=== PATIENT | female | born 1975 | race Caucasian/White ===

== ENCOUNTER 2021-10-02 21:14 | Emergency (ER) | payer MEDICAID, SELFPAY ==
[2021-10-02 21:28] VITALS: BP 121/81; PULSE 95; RESP 26; TEMP 37.2; O2SAT 95; BMI 23.7
--- NOTE | 2021-10-02 22:28 | W.ED.SOB ---
HPI - SOB/Dyspnea General: Chief Complaint: Shortness of Breath/Dyspnea Stated Complaint: sob Time Seen by Provider: 10/02/21 22:27 History of Present Illness: HPI Narrative: Ms. Garaz is a 46-year-old lady with significant past medical history of COPD and continued tobacco use presenting to the emergency department due to shortness of breath. She endorses history of frequent exacerbations and recent course of Levaquin. She is waiting for home oxygen to be delivered however was around smoke earlier today and since that time has had increased shortness of breath. Symptoms are worse with exertion. Associated cough is minimally productive. Course has worsened. Intensity moderate to severe. She has similar episodes in the past. No other specific changes in health, exacerbating, or alleviating factors identified. Onset (ago): hour(s) Context: allergen exposure Severity: moderate Exacerbating factors: exertion Known history of: COPD Review of Systems General: Reports: 10 or more systems reviewed and unremarkable except in HPI and below PFSH ED PFSH: Medical History (Updated 10/09/21 @ 02:32 by Israel Kerr MD) COPD (chronic obstructive pulmonary disease) Social History (Updated 10/09/21 @ 02:32 by Israel Kerr MD) Smoking and tobacco status: current every day smoker Physical Exam Const: COMMON NORMALS: alert GENERAL APPEARANCE: cooperative, well developed and ill appearing (Increased work of breathing) HENMT: COMMON NORMALS: normocephalic and atraumatic HEAD & SCALP: normocephalic and atraumatic THROAT: posterior oropharynx normal Eye: COMMON NORMALS: conjunctivae normal CONJUNCTIVA: Yes conjunctivae normal SCLERA: sclerae normal Neck/C-Spine: COMMON NORMALS: supple GENERAL: Yes trachea midline Resp: EFFORT & INSPECTION: Yes tachypneic AUSCULTATION: rhonchi, wheezes and diminished lung sounds Cardio: COMMON NORMALS: regular rate and regular rhythm RATE: regular rate RHYTHM: regular rhythm GI: COMMON NORMALS: Soft to palpation PALPATION: Yes Soft to palpation and No Tenderness to palpation present (GI) PERCUSSION: normal to percussion Extremity: GENERAL: Yes normal exam except as noted and No edema Neuro: COMMON NORMALS: moves all extremities SENSORIUM/ORIENTATION: Yes alert and No Orientation impaired Psych: COMMON NORMALS: mental status grossly normal and Normal thought process present THOUGHT PROCESS: Normal thought process present Course ED course: - Patient was seen and evaluated by me at bedside - Patient placed on cardiac monitors, IV access obtained - Initial evaluation notable for exam as above - Labs personally interpreted by me -RT treatment ordered. - Labs notable for minimal leukocytosis. Electrolyte panel without acute abnormality. - Upon serial reexamination after treatment the patient was mildly improved, repeat RT treatments ordered. COPD exacerbation treatment ordered. Upon reassessment subsequently patient markedly improved and not requiring supplemental oxygen. - Based on patient history, evaluation, and testing as interpreted the most likely cause of the patient's condition is COPD exacerbation. - The results of ED evaluation were discussed with the patient including prescriptions and/or symptomatic cares (if applicable) including appropriate and responsible use, followup plan, and return precautions. The patient verbalized understanding and felt safe for discharge. - Patient discharged in satisfactory condition. Note: Click bubbles or prepopulated walker in note writing are used for assistance with data collection and billing and are inherently more limited than narrative and other text portions of this note. Please use narrative for additional clinical history and defer to narrative/free test for any case of contradictory information. If information appears in only free text or click bubble it should be considered present or absent as reported. Please contact note global technical writer for clarifications of clinical information or contradictory information. MDM is a brief summary, contradictory or erroneous seeming information should be clarified and full note should be reviewed. Vital Signs: Vital signs: Vital Signs Temperature 98.9 F 10/02/21 21:28 Pulse Rate 90 10/03/21 00:29 Respiratory Rate 24 H 10/03/21 00:29 Blood Pressure 121/81 10/02/21 21:28 Pulse Oximetry 94 10/03/21 00:29 MDM - SOB/Dyspnea Medical Decision Making 46-year-old lady presenting with shortness of breath with known history of COPD. Patient had significant improvement in respiratory distress after ED treatment. Patient comfortable with outpatient management and strict return precautions. Medical Records I reviewed the patient's medical records. Lab Data I reviewed the patient's lab results. Discharge Plan Discharge Patient Disposition: Home Clinical Impression: Acute exacerbation of chronic obstructive airways disease Condition: Stable Prescriptions: New doxycycline hyclate 100 mg tablet 100 mg PO BID 10 Days Qty: 20 0RF albuterol sulfate 90 mcg/actuation HFA aerosol inhaler 2 inh inhalation Q4H PRN (Reason: shortness of breath or wheezing) Qty: 8.5 0RF Discharge Orders: Discharge ED (Routine); Ordered 10/03/21 Ordered By: Israel Kerr Discharge Diet: Usual diet Discharge Activity: Increase activity as tolerated Activity Restrictions/Additional Instructions: Thank you for visiting the emergency department. You were seen and evaluated for shortness of breath. This is likely related to exacerbation of underlying lung disease. Please follow-up with your primary care provider. You will be given prescriptions for COPD exacerbation. Return to the emergency department for worsening symptoms or anything else that you are concerned about and feel needs emergency department evaluation. Coding Level of Care Code ED Pipe Jeeper for Juan M Fwd Exam Comprehensive
[2021-10-02] MEDS: predniSONE 20 mg Tablet 40 MG PO (22:42)
[2021-10-02] MEDS: ipratropium-albuterol 3 mL Neb INHALATION (23:00)
[2021-10-02 23:02] VITALS: PULSE 89; RESP 18; O2SAT 100
[2021-10-03 00:09] VITALS: PULSE 97; RESP 18; O2SAT 99
[2021-10-03 00:19] VITALS: PULSE 88
[2021-10-03 00:29] VITALS: PULSE 90; RESP 24; O2SAT 94
== END 2021-10-03 00:30 | disposition home or self-care (01) ==
PROVIDERS: Emergency Provider Emergency Medicine; PCP Family Medicine
DX: J44.1 Chronic obstructive pulmonary disease with (acute) exacerbation (principal); F17.200 Nicotine dependence, unspecified, uncomplicated
CPT/HCPCS: 94640; 99283; J7512; J7611

== ENCOUNTER 2022-09-26 09:26 | Inpatient (IN) | payer MEDICAID, SELFPAY ==
[2022-09-26] VITALS (86 sets, daily range): BP systolic 102–153; BP diastolic 73–115; PULSE 81–116; RESP 8–35; TEMP 36.7; O2SAT 86–100; BMI 23.0
--- NOTE | 2022-09-26 10:07 | ECG_ITS ---
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 Measurements Intervals [place] Rate: 81 P: 85 [place]: 133 QRS: 87 QRSD: 82 T: 71 QT: 389 QTc: 454 Interpretive Statements SINUS RHYTHM Incomplete right bundle branch block POSSIBLE LEFT ATRIAL ENLARGEMENT [-0.1mV P-WAVE IN V1/V2] Compared to ECG 11/06/2018 09:52:29 No significant changes Electronically Signed On 09-26-2022 14:02:42 CDT by Shakeel Jean M.D. [email or web address] hospitalTRACON Pharmaceutical[facility] hospital.[employer]/store/[id number]
--- NOTE | 2022-09-26 10:08 | W.ED.SOB ---
HPI - SOB/Dyspnea General: Chief Complaint: Shortness of Breath/Dyspnea Stated Complaint: DIFFICULTY BREATHING Time Seen by Provider: 09/26/22 09:39 Source: patient Mode of arrival: ambulatory History of Present Illness: HPI Narrative: 47-year-old female presents emergency room complaining of shortness of breath difficulty breathing feeling lethargic and tired. She has had severe COPD for some time she is oxygen dependent states she feels like her carbon dioxide is building up again she is experience this previously. She does have a BiPAP at home but has not been seeming to be very helpful anymore she is also noticed that albuterol treatments not improving things. MD elicited complaint: shortness of breath and cough Pertinent past history: COPD Onset (ago): day(s) Timing: constant Severity: severe Relieving factors: rest and bronchodilators Known history of: COPD Associated symptoms: Reports cough; Deny abdominal pain, chest congestion, chest pain, diaphoresis, dizziness, extremity pain, fever(s), hemoptysis, lightheadedness, myalgias, nausea, orthopnea, palpitations, paresthesias, polydipsia, polyuria, rash, sense of impending doom, syncope or vomiting Treatment prior to arrival: oxygen and bronchodilator Review of Systems Const: Denies: fever(s), chills, fatigue, malaise or diaphoresis ENMT: Denies: throat pain, ear or mastoid pain, nasal discharge or nasal congestion Card: Denies: chest pain, palpitations, lightheadedness, syncope or orthopnea Resp: Reports: dyspnea, non-productive cough and wheezing; Denies: productive cough, hemoptysis or chest congestion GI: Denies: abdominal pain, nausea or vomiting : Denies: flank pain, difficulty voiding, dysuria, urinary frequency or urinary urgency Musc: Denies: neck pain, back pain or extremity pain Skin/Breast: Denies: rash or pruritus Neuro: Denies: dizziness Endo: Denies: polyuria or polydipsia PFSH ED PFSH: Medical History COPD (chronic obstructive pulmonary disease) Social History Smoking and tobacco status: current every day smoker Physical Exam Const: GENERAL APPEARANCE: cooperative and comfortable ORIENTATION/CONSCIOUSNESS: Yes awake, Yes oriented to person, Yes oriented to place and Yes oriented to time HENMT: COMMON NORMALS: normocephalic, atraumatic and hearing grossly normal bilaterally HEAD & SCALP: normocephalic and atraumatic Resp: EFFORT & INSPECTION: Yes tachypneic, Yes pursed lip breathing, Yes labored, Yes audible wheezes and Yes prolonged expiratory phase AUSCULTATION: wheezes and diminished lung sounds Cardio: COMMON NORMALS: regular rate, regular rhythm and No murmurs present (Cardio) RATE: regular rate RHYTHM: regular rhythm GI: COMMON NORMALS: Soft to palpation and No hepatosplenomegaly present AUSCULTATION: Yes normoactive bowel sounds PALPATION: Yes Soft to palpation, No Tenderness to palpation present (GI), No Guarding due to palpation present (GI) and Yes No hepatosplenomegaly present Extremity: COMMON NORMALS: normal to inspection, capillary refill normal, no clubbing, cyanosis or edema, no calf tenderness and no pedal edema Neuro: SENSORIUM/ORIENTATION: Yes oriented to person, Yes oriented to place and Yes oriented to time Skin: COMMON NORMALS: no rashes or lesions noted GENERAL SKIN EXAM: no rashes or lesions noted Course Vital Signs: Vital signs: Vital Signs Temperature 98.0 F 09/26/22 09:35 Pulse Rate 88 09/26/22 13:01 Respiratory Rate 16 09/26/22 10:35 Blood Pressure 102/73 09/26/22 10:54 Pulse Oximetry 93 09/26/22 13:01 Oxygen Delivery Me thod Room Air 09/26/22 10:54 Fraction of Inspir ed Oxygen 28 09/26/22 13:01 MDM - SOB/Dyspnea Medical Decision Making Hypercapnic respiratory failure no signs of acute pneumonia. Will admit the patient to the hospital [facility] was struggling with the Bi[facility] and extremely anxious we gave her 2 mg Ativan which she became very lethargic with. Repeat blood gases showed she was maintaining on her BiPAP but her CO2 was still persistently high. She is also now very lethargic. Ultimately after monitoring for extended period of time we decided to change her to the ICU. Both the patient and the family had expressed they do not want her intubated. Discussed with hospitalist orders written. Medical Records I reviewed the patient's medical records. Lab Data I reviewed the patient's lab results. 09/26/22 10:20 09/26/22 10:20 Labs/Radiology: Radiology Impressions Chest X-Ray 09/26/22 10:27 Impression: Atherosclerosis and hyperinflation. Laboratory Results WBC 15.9 10^3/uL (4.0-10.0) H 09/26/22 10:20 RBC 4.82 10^6/uL (4.1-5.3) 09/26/22 10:20 Hgb 14.1 g/dL (11.5-15.3) 09/26/22 10:20 Hct 47.1 % (37.0-47.0) H 09/26/22 10:20 MCV 97.7 fl (81-99) 09/26/22 10:20 MCH 29.3 pg (28.0-34.0) 09/26/22 10:20 MCHC 29.9 g/dL (30.0-36.0) L 09/26/22 10:20 RDW 13.2 % (12.1-15.1) 09/26/22 10:20 Plt Count 240 10^3/cmm (130-400) 09/26/22 10:20 MPV 10.3 fL (7.4-10.4) 09/26/22 10:20 Neut % (Auto) 79.9 % 09/26/22 10:20 Lymph % (Auto) 11.7 % 09/26/22 10:20 [place] % (Auto) 6.1 % 09/26/22 10:20 Eos % (Auto) 1.3 % 09/26/22 10:20 Baso % (Auto) 0.7 % 09/26/22 10:20 Neut # (Auto) 12.69 10^3/uL (1.8-7.7) H 09/26/22 10:20 Lymph # (Auto) 1.9 10^3/uL (0.8-4.8) 09/26/22 10:20 [place] # (Auto) 1.0 10^3/uL (0.2-0.9) H 09/26/22 10:20 Eos # (Auto) 0.2 10^3/uL (0.0-0.8) 09/26/22 10:20 Baso # (Auto) 0.1 10^3/uL (0.0-0.1) 09/26/22 10:20 Nucleated RBC % (auto) 0 % 09/26/22 10:20 Nucleated RBCs # 0.0 /100WBC 09/26/22 10:20 Specimen Type Arterial 09/26/22 11:43 Sample Site Radial, right 09/26/22 11:43 ABG pH 7.37 (7.35-7.45) 09/26/22 11:43 ABG pCO2 72.3 mmHg (35-45) H* 09/26/22 11:43 ABG pO2 91.8 mmHg (80.0-100.0) 09/26/22 11:43 ABG HCO3 41.9 mmol/L (22-26) H 09/26/22 11:43 ABG O2 Saturation 98.7 09/26/22 11:43 ABG Base Excess 13.0 mmol/L (-2.0-2.0) H 09/26/22 11:43 Jason Test Pos 09/26/22 11:43 A-a O2 Gradient 2.6 mmHg (5-10) L 09/26/22 11:43 Hematocrit 45.1 % (37-47) 09/26/22 11:43 Hgb O2 Saturation 93.1 % (95-100) L 09/26/22 11:43 Carboxyhemoglobin 4.9 %THgb (0.4-20.1) 09/26/22 11:43 Methemoglobin 0.7 % (0.4-1.5) 09/26/22 11:43 Total Hemoglobin 14.7 g/dL (12-16) 09/26/22 11:43 Sodium 142.0 mmol/L (131-143) 09/26/22 11:43 Potassium 5.0 mmol/L (3.5-5.0) 09/26/22 11:43 Glucose 119.0 mg/dL (70-115) H 09/26/22 11:43 Ionized Calcium 1.2 mmol/L (1.1-1.4) 09/26/22 11:43 O2 Delivery Device Bipap 09/26/22 11:43 O2 Liters/Min 2.0 % 09/26/22 10:05 FiO2 28.0 % 09/26/22 11:43 Weed Science Research Technician ID Jamie 09/26/22 11:43 Sodium 141 mmol/L (136-145) 09/26/22 10:20 Potassium 4.5 mmol/L (3.5-5.1) 09/26/22 10:20 Chloride 96 mmol/L (98-107) L 09/26/22 10:20 Carbon Dioxide 37 mmol/L (22-29) H 09/26/22 10:20 Anion Gap 12.5 (5-19) 09/26/22 10:20 BUN 11 mg/dL (6-20) 09/26/22 10:20 Creatinine 0.4 mg/dL (0.5-0.9) L 09/26/22 10:20 GFR Calculation 171.1 mL/min (90-130) H 09/26/22 10:20 Glucose 105 mg/dL (65-115) 09/26/22 10:20 Calculated Osmolality 292 mOsm/kg (285-295) 09/26/22 10:20 Calcium 8.9 mg/dL (8.5-10.5) 09/26/22 10:20 Total Bilirubin 0.2 mg/dL (0.15-1.2) 09/26/22 10:20 AST 16 U/L (0-32) 09/26/22 10:20 ALT 28 U/L (0-33) 09/26/22 10:20 Alkaline Phosphatase 76 U/L (35-105) 09/26/22 10:20 Troponin T Baseline 9 ng/L (0-10) 09/26/22 10:20 Troponin T 120 Minute 8.04 ng/L (0-10) 09/26/22 12:49 Delta Troponin T -0.96 ABS# (0-10) L 09/26/22 12:49 Total Protein 6.1 g/dL (6.6-8.7) L 09/26/22 10:20 Albumin 3.9 g/dL (3.5-5.2) 09/26/22 10:20 Globulin 2.2 g/dL (1.3-4.6) 09/26/22 10:20 Discharge Plan Discharge Patient Disposition: Admitted As Inpatient Admit Provider: Damon Malone Clinical Impression: Acute exacerbation of chronic obstructive airways disease, Respiratory failure with hypoxia and hypercapnia Condition: Stable Coding Level of Care Code ED Gift Officer for Juan M Vegas
[2022-09-26 10:23] LABS: ABG PH Result 7.33 (7.35-7.45); Alveolar-Arterial Oxygen Gradi 3.6 mmHg (5-10); Arterial Blood Gas Hematocrit 44.8 % (37-47); Base Excess ABG 13.1 mmol/L (-2.0-2.0); Blood Gas Operator Identificat GD; Blood Gas Sample Site Brachial, right; Blood Gas Sample Type Arterial; Carboxyhemoglobin 6.1 %THgb (0.4-20.1); HCO3 ABG 43.4 mmol/L (22-26); HGB O2 Sat 89.7 % (95-100); Ionized Calcium Level - ABG 1.3 mmol/L (1.1-1.4); Methemoglobin 0.6 % (0.4-1.5); Oxygen Device NC; Oxygen Saturation ABG 96.1; PO2 ABG 71.9 mmHg (80.0-100.0); Potassium Level - ABG 4.1 mmol/L (3.5-5.0); Total Hemoglobin 14.6 g/dL (12-16)
[2022-09-26] MEDS: dexamethasone 10 mg/mL INJ IVP (10:26)
--- NOTE | 2022-09-26 10:27 | XR_ITS ---
WS: [id number] Portable AP upright chest, 09/26/2022 Clinical Data: dyspnea/cough Comparison: Portable chest, 11/06/2018 Findings: No nodules, masses or effusions are seen. The heart is normal. There is an unchanged calcif ied granuloma in the right midlung. The pulmonary vascularity is not increased. No pneumonia or pneum othorax is seen. The aortic arch and descending thoracic aorta show minimal tortuosity. The diaphragm s are flattened. There are healed left sixth, seventh and eighth rib fractures. XR/XR chest 1V portable [id number] Impression: Atherosclerosis and hyperinflation.
[2022-09-26] MEDS: ipratropium-albuterol 3 mL Neb INHALATION ×2 (10:36→19:35)
[2022-09-26 11:12] LABS: Troponin(5th) Baseline 9 ng/L (0-10)
[2022-09-26 11:54] LABS: Alanine Aminotransferase 28 U/L (0-33); Albumin Level 3.9 g/dL (3.5-5.2); Alkaline Phosphatase 76 U/L (35-105); Blood Urea Nitrogen 11 mg/dL (6-20); Calcium 8.9 mg/dL (8.5-10.5); Carbon Dioxide 37 mmol/L (22-29); Chloride 96 mmol/L (98-107); Creatinine Clr Calc Pharmacy 151.0371; Globulin 2.2 g/dL (1.3-4.6); Glomerular Filtration Rate 171.1 mL/min (90-130); Glucose 105 mg/dL (65-115); Osmolality Calculated 292 mOsm/kg (285-295); Sodium 141 mmol/L (136-145); Total Bilirubin 0.2 mg/dL (0.15-1.2); Total Protein 6.1 g/dL (6.6-8.7)
[2022-09-26 11:55] LABS: ABG PH Result 7.37 (7.35-7.45); Alveolar-Arterial Oxygen Gradi 2.6 mmHg (5-10); Arterial Blood Gas Hematocrit 45.1 % (37-47); Blood Gas Allen Test Pos; Blood Gas Sample Site Radial, right; Blood Gas Sample Type Arterial; Carboxyhemoglobin 4.9 %THgb (0.4-20.1); HCO3 ABG 41.9 mmol/L (22-26); HGB O2 Sat 93.1 % (95-100); Ionized Calcium Level - ABG 1.2 mmol/L (1.1-1.4); Methemoglobin 0.7 % (0.4-1.5); Oxygen Device BIPAP; Oxygen Saturation ABG 98.7; PO2 ABG 91.8 mmHg (80.0-100.0); Total Hemoglobin 14.7 g/dL (12-16)
[2022-09-26 11:57] LABS: Basophils # 0.1 10^3/uL (0.0-0.1); Basophils % 0.7 %; Eosinophils # 0.2 10^3/uL (0.0-0.8); Eosinophils % 1.3 %; Hematocrit 47.1 % (37.0-47.0); Hemoglobin 14.1 g/dL (11.5-15.3); Lymphocytes # 1.9 10^3/uL (0.8-4.8); Lymphocytes % 11.7 %; Mean Corpuscular HGB Conc 29.9 g/dL (30.0-36.0); Mean Corpuscular Hemoglobin 29.3 pg (28.0-34.0); Mean Corpuscular Volume 97.7 fl (81-99); Mean Platelet Volume 10.3 fL (7.4-10.4); Monocytes % 6.1 %; Neutrophils # 12.69 10^3/uL (1.8-7.7); Neutrophils % 79.9 %; Nucleated Red Blood Cells % 0 %; Platelet Count 240 10^3/cmm (130-400); Red Blood Count 4.82 10^6/uL (4.1-5.3); Red Cell Distribution Width 13.2 % (12.1-15.1); White Blood Count 15.9 10^3/uL (4.0-10.0)
[2022-09-26 11:59] LABS: Anion Gap 12.5 (5-19); Aspartate Amino Transferase 16 U/L (0-32); Potassium 4.5 mmol/L (3.5-5.1)
--- NOTE | 2022-09-26 12:07 | ECG_ITS ---
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 Measurements Intervals [place] Rate: 82 P: 86 SC: 122 QRS: 95 QRSD: 80 T: 93 QT: 387 QTc: 452 Interpretive Statements SINUS RHYTHM POSSIBLE LEFT ATRIAL ENLARGEMENT [-0.1mV P-WAVE IN V1/V2] INDETERMINATE AXIS POSSIBLE RIGHT VENTRICULAR CONDUCTION DELAY [RSR (QR) IN V1/V2] Compared to ECG 09/26/2022 10:26:56 Indeterminate axis now present Electronically Signed On 09-26-2022 14:14:20 CDT by Shakeel Jean M.D. [email or web address].[employer]/store/[id number]
[2022-09-26] MEDS: LORazepam 2 mg/mL INJ 1 mL IVP (12:32)
--- NOTE | 2022-09-26 12:33 | PC.PHAR ---
PT BROUGHT IN MED BOTTLES-PT STATES SHE KNOWS MOST OF HER MEDS AND THAT HER BOYFRIEND OSEAS HELPS HER WITH HER MEDS-CALLED OSEAS HIS PHONE NUMBER IS NOT IN SERVICE-MEDICATIONS ENTERED ARE FROM WHAT THE PT STATES SHE TAKES,EXT MED HISTORY AND MED BOTTLES BROUGHT IN.
[2022-09-26 13:38] LABS: Troponin 5 2HR 8.04 ng/L (0-10)
[2022-09-26 13:50] LABS: Troponin 5 2HR Delta -0.96 ABS# (0-10)
[2022-09-26 14:31] LABS: ABG PH Result 7.38 (7.35-7.45); Alveolar-Arterial Oxygen Gradi 6.4 mmHg (5-10); Arterial Blood Gas Hematocrit 46.8 % (37-47); Base Excess ABG 13.3 mmol/L (-2.0-2.0); Blood Gas Operator Identificat GD; Blood Gas Sample Site Brachial, right; Blood Gas Sample Type Arterial; Carboxyhemoglobin 4.4 %THgb (0.4-20.1); HCO3 ABG 42.4 mmol/L (22-26); HGB O2 Sat 89.8 % (95-100); Ionized Calcium Level - ABG 1.3 mmol/L (1.1-1.4); Methemoglobin 0.5 % (0.4-1.5); Oxygen Device BIPAP; Oxygen Saturation ABG 94.5; Total Hemoglobin 15.3 g/dL (12-16)
[2022-09-26 14:33] LABS: ABG PCO2 72.3 mmHg (35-45)
[2022-09-26 14:33] LABS: ABG PCO2 83.3 mmHg (35-45)
[2022-09-26 14:33] LABS: ABG PCO2 71.9 mmHg (35-45)
--- NOTE | 2022-09-26 14:53 | P.HP_ITS ---
Providers/Chief Complaint Admitting Physician: Damon Malone MD Primary Care Provider: Nurys Brooks DO Chief Complaint: DIFFICULTY BREATHING History of Present Illness Rebekah Gabriel is a 47 year old female with past medical history of gold class D COPD , on home oxygen, came in today with chief complaint of worsening shortness of breath, she has shortness of breath at baseline due to her underlying end- stage COPD, but lately in the last 1 week she has been more short of breath, history taking was not possible from the patient as the patient was extremely sleepy because she had just called Ativan in the ER, history was provided by the friend. She denied any pain cough, headache nausea vomiting abdominal pain. X-ray chest showed: Hyperinflated lung. Pertinent labs: ABG: pH: 7.33, PCO2:83 , PO2:71 , FiO2 28%. Patient was placed on AVAPS in the ER: (Tidal volume 420, rate of 18, P minimum 28 P maximum 40, EPAP of 10, FiO2 28%. Interval serial ABG was monitored. Review of Systems General: Reports: ROS unobtainable due to mental status Medications/Allergies Home Medications Medication Instructions Recorded Confirmed Last Taken Type albuterol sulfate 90 mcg/actuation 2 inh inhalation Q4H PRN shortness 10/03/21 09/26/22 Unknown Rx aerosol inhaler of breath or wheezing #8.5 grams dpicpve-rrzgxjpyrthfy-rtydinoe 250 1 tab PO Q6H PRN Migraine Headache 09/26/22 09/26/22 Unknown History mg-250 mg-65 mg tablet (Migraine Relief) azithromycin 250 mg tablet 250 mg PO DAILY 09/26/22 09/26/22 09/26/22 History FINISHED TODAY guaifenesin 600 mg tablet, 600 mg PO DAILY PRN Congestion 09/26/22 09/26/22 Unknown History extended release 12 hr (Mucinex) hydrocodone 5 mg-acetaminophen 325 1 tab PO Q6H PRN Pain 09/26/22 09/26/22 Unknown History mg tablet ipratropium 0.5 mg-albuterol 3 mg 3 ml inhalation Q4H PRN Shortness 09/26/22 09/26/22 Unknown History (2.5 mg base)/3 mL nebulization Of Breath soln levocetirizine 5 mg tablet (Xyzal) 5 mg PO QPM 09/26/22 09/26/22 Unknown History loratadine 10 mg tablet (Claritin) 10 mg PO DAILY PRN Allergy Symptoms 09/26/22 09/26/22 Unknown History phenylephrine HCl 5 mg tablet 5 mg PO BID PRN Allergy Symptoms 09/26/22 09/26/22 Unknown History phenylephrine-guaifenesin 10 1 tab PO DAILY PRN Sinus Symptoms 09/26/22 09/26/22 Unknown History mg-400 mg tablet prednisone 20 mg tablet 40 mg PO QAM 09/26/22 09/26/22 09/26/22 History propranolol 10 mg tablet 10 mg PO DAILY 09/26/22 09/26/22 Unknown History sodium chloride 0.65 % nasal spray 1 spray intranasal BID PRN UNKNOWN 09/26/22 09/26/22 Unknown History aerosol (Saline Nasal) tramadol 50 mg tablet 25 mg PO QAM PRN Pain 09/26/22 09/26/22 Unknown History umeclidinium 62.5 mcg/actuation 1 inh inhalation DAILY 09/26/22 09/26/22 Unknown History blister powder for inhalation (Incruse Ellipta) Allergies Allergy/AdvReac Type Severity Reaction Status Date / Time levofloxacin [From Levaquin] Allergy Unknown Verified 09/26/22 09:46 Penicillins Allergy Unknown Verified 09/26/22 09:46 Sulfa (Sulfonamide Allergy Unknown Verified 09/26/22 09:46 Antibiotics) PFSH Acute PFSH: Medical History COPD (chronic obstructive pulmonary disease) Social History Smoking and tobacco status: current every day smoker Vitals/I&O/Wt Last Vital Signs Temp 98.0 F 09/26/22 09:35 Pulse 88 09/26/22 13:01 Resp 16 09/26/22 10:35 BP 102/73 09/26/22 10:54 Pulse Ox 93 09/26/22 13:01 O2 Del Method Room Air 09/26/22 10:54 FiO2 28 09/26/22 13:01 Weight last 48 hrs Weight 58.967 kg Physical Exam 2 Const: COMMON NORMALS: patient oriented x3 HENMT: COMMON NORMALS: normocephalic and atraumatic Resp: EFFORT & INSPECTION: Yes symmetric chest movement OTHER: Diminished air entry B/L Cardio: COMMON NORMALS: regular rate, regular rhythm, S1 normal heart sound present, S2 normal heart sound present, No gallops present (Cardio), No murmurs present (Cardio), No rub (Cardio) and Peripheral pulses 2+ throughout RATE: regular rate RHYTHM: regular rhythm HEART SOUNDS: S1 normal heart sound present and S2 normal heart sound present PERIPHERAL PULSES: Peripheral pulses 2+ throughout GI: COMMON NORMALS: Normal to inspection, nondistended, normoactive bowel sounds present, Soft to palpation, non-tender, No hepatosplenomegaly present and no masses AUSCULTATION: Yes normoactive bowel sounds PALPATION: Yes Soft to palpation and Yes No hepatosplenomegaly present RECTAL EXAM: deferred Extremity: COMMON NORMALS: no clubbing, cyanosis or edema and no pedal edema Neuro: COMMON NORMALS: patient oriented x3 Data 09/26/22 10:20 09/26/22 10:20 A&P Assessment and plan (1) Respiratory failure with hypoxia and hypercapnia: (2) COPD exacerbation: Plan 47 year old female with past medical history of gold class D COPD , on home oxygen, came in today with chief complaint of worsening shortness of breath, she has shortness of breath at baseline due to her underlying end-stage COPD, but lately in the last 1 week she has been more short of breath. Assessment: Respiratory failure with hypoxia and hypercapnia secondary to COPD exacerbation: Continue BiPAP currently on AVAPS Monitor ABG Continue dexamethasone DuoNebs Supplemental oxygen as needed. COPD exacerbation: Plan as above Attestations Medical Necessity Statement*: Patient needs to be in hospital for management of respiratory failure.Ant icipated length of stay greater than 2 midnights. Coding Level of Care Code Acute Code for [facility] Fwd Diagnoses Respiratory failure with hypoxia and hypercapnia J96.91; J96.92 COPD exacerbation J44.1
[2022-09-26] MEDS: dexamethasone 4 mg/mL INJ IVP (16:14)
[2022-09-26] MEDS: enoxaparin 40 mg/0.4 mL Syringe SUBCUT (16:15)
--- NOTE | 2022-09-26 16:32 | ECG_ITS ---
[facility] Test Date: 2022-09-26 Pat Name: Rebekah Gabriel Department: Room: ICU10 Gender: Female Crisis Manager: : 1975 Requested By: Juan Jay Order Number: [id number] Chandana MD: Jeffery Nguyen M.D. Measurements Intervals [place] Rate: 94 P: 86 NM: 123 QRS: 76 QRSD: 77 T: 78 QT: 363 QTc: 456 Interpretive Statements SINUS RHYTHM POSSIBLE RIGHT ATRIAL ENLARGEMENT [0.25mV P-WAVE] LEFT ATRIAL ENLARGEMENT [-0.15mV P-WAVE IN V1/V2] INDETERMINATE AXIS POSSIBLE ANTERIOR MYOCARDIAL INFARCTION , OF INDETERMINATE AGE [30 ms Q WAVE IN V3/V4, OR R < 0.2 mV IN V4] Compared to ECG 09/26/2022 12:26:54 Myocardial infarct finding now present Electronically Signed On 09-27-2022 12:01:54 CDT by Jeffery Nguyen M.D. [email or web address] [id number]
[2022-09-26 17:22] LABS: Troponin 5 6HR 6.56 ng/L (0-10)
[2022-09-26 17:40] LABS: Troponin 5 6HR Delta -2.44 ng/L (0-12)
[2022-09-26 21:24] LABS: Urine Appearance Hazy (CLEAR); Urine Color Yellow (Yellow); pH Urine 8 (5-7)
[2022-09-26 21:27] LABS: Add Urine Culture? Yes; Add Urine Microscopic? YES; Bacteria Urine 3+ /hpf; Bilirubin Urine Neg (Negative); Blood Urine Neg (Negative); Glucose Urine UA Norm (Normal); Ketones Urine Negative (Negative); Leukocyte Esterase Urine Negative (Negative); Nitrate Urine Positive (Negative); Protein Urine Neg (Negative); Squamous Epithelial Cell Urine 0-4 /hpf (0-5); Sulfosalicylic Acid Urine Negative (Negative); Urobilinogen Urine Norm (Negative)
[2022-09-26] MEDS: LORazepam 2 mg/mL INJ 1 mL 1 MG IVP (23:23)
[2022-09-27] VITALS (52 sets, daily range): BP systolic 109–170; BP diastolic 73–117; PULSE 94–126; RESP 3–52; TEMP 36.6–36.7; O2SAT 92–99
[2022-09-27] MEDS: dexamethasone 4 mg/mL INJ IVP ×3 (01:09→16:10)
[2022-09-27] MEDS: ipratropium-albuterol 3 mL Neb INHALATION ×3 (02:45→13:12)
[2022-09-27 03:28] LABS: Basophils % 0.1 %; Eosinophils % 0.1 %; Hematocrit 46.4 % (37.0-47.0); Hemoglobin 14.5 g/dL (11.5-15.3); Lymphocytes # 0.8 10^3/uL (0.8-4.8); Lymphocytes % 7.5 %; Mean Corpuscular HGB Conc 31.3 g/dL (30.0-36.0); Mean Corpuscular Hemoglobin 29.4 pg (28.0-34.0); Mean Corpuscular Volume 94.1 fl (81-99); Monocytes # 0.4 10^3/uL (0.2-0.9); Monocytes % 3.9 %; Nucleated Red Blood Cells % 0 %; Platelet Count 236 10^3/cmm (130-400); Red Blood Count 4.93 10^6/uL (4.1-5.3); Red Cell Distribution Width 13.2 % (12.1-15.1); White Blood Count 10.3 10^3/uL (4.0-10.0)
[2022-09-27 03:55] LABS: Anion Gap 13.8 (5-19); Blood Urea Nitrogen 20 mg/dL (6-20); Calcium 9.6 mg/dL (8.5-10.5); Carbon Dioxide 35 mmol/L (22-29); Chloride 97 mmol/L (98-107); Glomerular Filtration Rate 89.7 mL/min (90-130); Glucose 150 mg/dL (65-115); Magnesium 2.1 mg/dL (1.7-2.3); Osmolality Calculated 297 mOsm/kg (285-295); Potassium 4.8 mmol/L (3.5-5.1); Sodium 141 mmol/L (136-145)
--- NOTE | 2022-09-27 08:37 | PC.NURSE ---
Eating Patient eating outside [employer] brought in by boyfriend. Patient was educated on diet earlier.
[2022-09-27] MEDS: LORazepam 2 mg/mL INJ 1 mL 0.5 MG IVP (09:49)
[2022-09-27] MEDS: acetaminophen 325 mg Tablet 650 MG PO (11:09)
[2022-09-27] MEDS: enoxaparin 40 mg/0.4 mL Syringe SUBCUT (15:31)
[2022-09-27] MEDS: ziprasidone 20 mg/mL SDV 10 MG IM ×2 (15:31→15:35)
[2022-09-27] MEDS: water for injection-sterile 10 ML (15:35)
--- NOTE | 2022-09-27 16:14 | PC.NURSE ---
Drugs Patient's friend asked me if he could talk to me in private. Friend informs nurse that both patient and her boyfriend are meth addicts and that their living conditions are extremely poor.
--- NOTE | 2022-09-27 16:15 | PC.NURSE ---
Anxiety Patient has been very anxious and tearful many times throughout shift. Dr. Malone in ICU and notified. 10 mg IM Geodon once ordered and given.
--- NOTE | 2022-09-27 16:23 | PM.PN ---
Subjective Subjective: Patient was seen and examined this morning shortness of breath is improved, patient was extremely anxious and tearful this morning, she thinks that her COPD will kill her. She was also found to be in sinus tachycardia. Medications: Medication Review Details: Generic Name Dose Route Start Last Admin Trade Name Amairani PRN Reason Stop Dose Admin Acetaminophen 650 mg 09/26/22 14:48 09/27/22 11:09 Acetaminophen 32 5 Mg Tablet PO 650 mg Q6H PRN Administration Mild/Mod Pain Or Temp >/= 101 Albuterol/Ipratrop ium 3 ml 09/26/22 20:00 09/27/22 13:12 Ipratropium-Albu terol 3 Ml Neb INHALATION 3 ml Q6H.RESP SOBIA Administration Albuterol/Ipratrop ium 3 ml 09/26/22 17:20 09/27/22 15:04 Ipratropium-Albu terol 3 Ml Neb INHALATION Not Given QID.RESPIRATORY S CH Dexamethasone 4 mg 09/26/22 17:00 09/27/22 16:10 Dexamethasone 4 Mg/Ml Inj IVP 4 mg Q8H SOBIA Administration Enoxaparin Sodium 40 mg 09/26/22 15:00 09/27/22 15:31 Enoxaparin 40 Mg /0.4 Ml Syringe SUBCUT 40 mg Q24H SOBIA Administration Lorazepam 0.5 mg 09/27/22 09:35 09/27/22 09:49 Lorazepam 2 Mg/M l Inj 1 Ml IVP 0.5 mg ONCE PRN Administration ANXIETY Vitals/I&O/Wt Last Vital Signs Temp 97.8 F 09/27/22 04:00 Pulse 122 H 09/27/22 14:00 Resp 18 09/27/22 13:30 BP 126/86 09/27/22 11:00 Pulse Ox 92 09/27/22 13:30 O2 Del Method Nasal Cannula 09/27/22 13:30 O2 Flow Rate 2 09/27/22 13:30 FiO2 28 09/27/22 05:10 09/27/22 09/27/22 09/27/22 06:59 14:59 22:59 Intake Total 480 / 480 Output Total 700 / 1300 200 / 200 Balance -700 / -1000 280 / 280 Weight last 48 hrs Weight 58.967 kg Physical Exam Const: COMMON NORMALS: patient oriented x3 HENMT: COMMON NORMALS: normocephalic and atraumatic HEAD & SCALP: normocephalic and atraumatic Resp: OTHER: Diminished air entry B/L Cardio: COMMON NORMALS: regular rate, regular rhythm, S1 normal heart sound present, S2 normal heart sound present, No gallops present (Cardio), No murmurs present (Cardio), No rub (Cardio) and Peripheral pulses 2+ throughout RATE: regular rate RHYTHM: regular rhythm HEART SOUNDS: S1 normal heart sound present and S2 normal heart sound present PERIPHERAL PULSES: Peripheral pulses 2+ throughout GI: COMMON NORMALS: Normal to inspection, nondistended, normoactive bowel sounds present, Soft to palpation, non-tender, No hepatosplenomegaly present and no masses AUSCULTATION: Yes normoactive bowel sounds PALPATION: Yes Soft to palpation and Yes No hepatosplenomegaly present RECTAL EXAM: deferred Extremity: COMMON NORMALS: no clubbing, cyanosis or edema and no pedal edema Neuro: COMMON NORMALS: patient oriented x3 Data 09/27/22 03:06 09/27/22 03:06 A&P Assessment and plan (1) Respiratory failure with hypoxia and hypercapnia: (2) COPD exacerbation: Plan 47 year old female with past medical history of gold class D COPD , on home oxygen, came in today with chief complaint of worsening shortness of breath, she has shortness of breath at baseline due to her underlying end-stage COPD, but lately in the last 1 week she has been more short of breath. Assessment: Respiratory failure with hypoxia and hypercapnia secondary to COPD exacerbation: Continue BiPAP currently on AVAPS Monitor ABG Continue dexamethasone DuoNebs Supplemental oxygen as needed. COPD exacerbation: Plan as above UTI: Urine bacteria 3+, positive urine nitrate, urine WBC 5-10 per high-power field: Follow urine culture: Currently she has been started on ceftriaxone. Attestations Medical Necessity Statement*: Needs to be in hospital for management of COPD exacerbation and need for IV steroids. Coding Level of Care Code Acute Code for [facility] Fwd Diagnoses Respiratory failure with hypoxia and hypercapnia J96.91; J96.92 COPD exacerbation J44.1
[2022-09-27] MEDS: cefTRIAXone 1,000 MG in sodium chloride 0.9% (plus) 50 ML 100 MG IV (18:33)
--- NOTE | 2022-09-27 18:41 | PC.NURSE ---
Service dog. Patient request service dog in room with her. Patient and boyfriend educated on [facility] policy by security. Dog in room. Nurse explained dog is to remain in room, calm, harnessed, on lease, and with flattening press operator in control of it at all time. Patient verbalized understanding.
[2022-09-27] MEDS: levalbuterol 1.25 mg/3 mL Neb INHALATION (20:03)
[2022-09-27] MEDS: ipratropium 0.5 mg/2.5 mL Neb INHALATION (20:03)
[2022-09-28] VITALS (15 sets, daily range): BP systolic 108–147; BP diastolic 70–95; PULSE 92–119; RESP 20–37; TEMP 36.4–36.7; O2SAT 94–98
[2022-09-28] MEDS: dexamethasone 4 mg/mL INJ IVP ×2 (01:18→08:36)
[2022-09-28] MEDS: ipratropium 0.5 mg/2.5 mL Neb INHALATION ×2 (02:32→08:39)
[2022-09-28] MEDS: levalbuterol 1.25 mg/3 mL Neb INHALATION ×2 (02:32→08:39)
[2022-09-28 04:32] LABS: Basophils % 0.1 %; Hematocrit 46.8 % (37.0-47.0); Hemoglobin 14.1 g/dL (11.5-15.3); Lymphocytes # 1.3 10^3/uL (0.8-4.8); Lymphocytes % 9.3 %; Mean Corpuscular HGB Conc 30.1 g/dL (30.0-36.0); Mean Corpuscular Hemoglobin 28.5 pg (28.0-34.0); Mean Corpuscular Volume 94.5 fl (81-99); Mean Platelet Volume 10.1 fL (7.4-10.4); Monocytes # 0.9 10^3/uL (0.2-0.9); Monocytes % 6.6 %; Neutrophils # 11.93 10^3/uL (1.8-7.7); Neutrophils % 83.7 %; Nucleated Red Blood Cells % 0 %; Platelet Count 254 10^3/cmm (130-400); Red Blood Count 4.95 10^6/uL (4.1-5.3); Red Cell Distribution Width 13.4 % (12.1-15.1); White Blood Count 14.3 10^3/uL (4.0-10.0)
[2022-09-28 04:59] LABS: Anion Gap 15.1 (5-19); Blood Urea Nitrogen 17 mg/dL (6-20); Calcium 8.9 mg/dL (8.5-10.5); Carbon Dioxide 30 mmol/L (22-29); Chloride 100 mmol/L (98-107); Glomerular Filtration Rate 132.2 mL/min (90-130); Glucose 95 mg/dL (65-115); Osmolality Calculated 293 mOsm/kg (285-295); Potassium 4.1 mmol/L (3.5-5.1); Sodium 141 mmol/L (136-145)
[2022-09-28] MEDS: acetaminophen 325 mg Tablet 650 MG PO (05:54)
[2022-09-28] MEDS: ketorolac 30 mg/mL INJ 15 MG IVP (08:57)
--- NOTE | 2022-09-28 10:09 | P.DS_ITS ---
Discharge Providers Date of Admission: 09/26/22 13:20 Date of Discharge: September 28, 2022 Attending Provider at Admission: Damon Malone MD Attending Provider at Discharge: Damon Malone MD Primary Care Provider: Nurys Brooks DO Diagnoses at Discharge Discharge Diagnosis (1) Respiratory failure with hypoxia and hypercapnia: Status: Acute (2) COPD exacerbation: Status: Acute Reason for Visit Reason for Visit: DIFFICULTY BREATHING Hospital Course Hospital Course 47 year old female with past medical history of gold class D COPD , on home oxygen, came in today with chief complaint of worsening shortness of breath, she has shortness of breath at baseline due to her underlying end-stage COPD, but lately in the last 1 week she has been more short of breath. Admitted for management of respiratory failure with hypoxia and hypercapnia secondary to COPD exacerbation she was kept on BiPAP on AVAPS setting initially. She was also kept on steroids, DuoNebs, supplemental oxygen as needed, to which she fairly responded well at the time of discharge shortness of breath is significantly improved, during the hospital stay she was also managed for UTI, she was kept on ceftriaxone, was discharged on levofloxacin.Patient fairly responded well to above medical management and was discharged stable condition to home. Physical Exam Const: COMMON NORMALS: patient oriented x3 HENMT: COMMON NORMALS: normocephalic and atraumatic HEAD & SCALP: normocephalic and atraumatic Resp: OTHER: Diminished air entry B/L Cardio: COMMON NORMALS: regular rate, regular rhythm, S1 normal heart sound present, S2 normal heart sound present, No gallops present (Cardio), No murmurs present (Cardio), No rub (Cardio) and Peripheral pulses 2+ throughout RATE: regular rate RHYTHM: regular rhythm HEART SOUNDS: S1 normal heart sound present and S2 normal heart sound present PERIPHERAL PULSES: Peripheral pulses 2+ throughout GI: COMMON NORMALS: Normal to inspection, nondistended, normoactive bowel sounds present, Soft to palpation, non-tender, No hepatosplenomegaly present and no masses AUSCULTATION: Yes normoactive bowel sounds PALPATION: Yes Soft to palpation and Yes No hepatosplenomegaly present RECTAL EXAM: deferred Extremity: COMMON NORMALS: no clubbing, cyanosis or edema and no pedal edema Neuro: COMMON NORMALS: patient oriented x3 Discharge Data Studies Completed and Pending Completed Studies During Hospitalization Category Date Time Status XR chest 1V portable [id number] Stat Exams 09/26/22 10:27 Completed Pending at discharge Category Date Time Status Basic Metabolic Panel AM LABS Lab 09/29/22 04:00 Ordered Complete Blood Count w/Auto AM LABS Lab 09/29/22 04:00 Ordered Urine Culture Stat Lab 09/26/22 20:00 Received Radiology Impressions Chest X-Ray 09/26/22 10:27 Impression: Atherosclerosis and hyperinflation. Laboratory Results WBC 14.3 10^3/uL (4.0-10.0) H 09/28/22 03:50 RBC 4.95 10^6/uL (4.1-5.3) 09/28/22 03:50 Hgb 14.1 g/dL (11.5-15.3) 09/28/22 03:50 Hct 46.8 % (37.0-47.0) 09/28/22 03:50 MCV 94.5 fl (81-99) 09/28/22 03:50 MCH 28.5 pg (28.0-34.0) 09/28/22 03:50 MCHC 30.1 g/dL (30.0-36.0) 09/28/22 03:50 RDW 13.4 % (12.1-15.1) 09/28/22 03:50 Plt Count 254 10^3/cmm (130-400) 09/28/22 03:50 MPV 10.1 fL (7.4-10.4) 09/28/22 03:50 Neut % (Auto) 83.7 % 09/28/22 03:50 Lymph % (Auto) 9.3 % 09/28/22 03:50 [place] % (Auto) 6.6 % 09/28/22 03:50 Eos % (Auto) 0.0 % 09/28/22 03:50 Baso % (Auto) 0.1 % 09/28/22 03:50 Neut # (Auto) 11.93 10^3/uL (1.8-7.7) H 09/28/22 03:50 Lymph # (Auto) 1.3 10^3/uL (0.8-4.8) 09/28/22 03:50 [place] # (Auto) 0.9 10^3/uL (0.2-0.9) 09/28/22 03:50 Eos # (Auto) 0.0 10^3/uL (0.0-0.8) 09/28/22 03:50 Baso # (Auto) 0.0 10^3/uL (0.0-0.1) 09/28/22 03:50 Nucleated RBC % (auto) 0 % 09/28/22 03:50 Nucleated RBCs # 0.0 /100WBC 09/28/22 03:50 Specimen Type Arterial 09/26/22 14:15 Sample Site Brachial, right 09/26/22 14:15 ABG pH 7.38 (7.35-7.45) 09/26/22 14:15 ABG pCO2 71.9 mmHg (35-45) H* 09/26/22 14:15 ABG pO2 63.0 mmHg (80.0-100.0) L 09/26/22 14:15 ABG HCO3 42.4 mmol/L (22-26) H 09/26/22 14:15 ABG O2 Saturation 94.5 09/26/22 14:15 ABG Base Excess 13.3 mmol/L (-2.0-2.0) H 09/26/22 14:15 Jason Test N/a 09/26/22 14:15 A-a O2 Gradient 6.4 mmHg (5-10) 09/26/22 14:15 Hematocrit 46.8 % (37-47) 09/26/22 14:15 Hgb O2 Saturation 89.8 % (95-100) L 09/26/22 14:15 Carboxyhemoglobin 4.4 %THgb (0.4-20.1) 09/26/22 14:15 Methemoglobin 0.5 % (0.4-1.5) 09/26/22 14:15 Total Hemoglobin 15.3 g/dL (12-16) 09/26/22 14:15 Sodium 141.0 mmol/L (131-143) 09/26/22 14:15 Potassium 5.0 mmol/L (3.5-5.0) 09/26/22 14:15 Glucose 143.0 mg/dL (70-115) H 09/26/22 14:15 Ionized Calcium 1.3 mmol/L (1.1-1.4) 09/26/22 14:15 O2 Delivery Device Bipap 09/26/22 14:15 O2 Liters/Min 2.0 % 09/26/22 10:05 FiO2 28.0 % 09/26/22 14:15 Mucker Operator ID Gd 09/26/22 14:15 Sodium 141 mmol/L (136-145) 09/28/22 03:50 Potassium 4.1 mmol/L (3.5-5.1) 09/28/22 03:50 Chloride 100 mmol/L (98-107) 09/28/22 03:50 Carbon Dioxide 30 mmol/L (22-29) H 09/28/22 03:50 Anion Gap 15.1 (5-19) 09/28/22 03:50 BUN 17 mg/dL (6-20) 09/28/22 03:50 Creatinine 0.5 mg/dL (0.5-0.9) 09/28/22 03:50 GFR Calculation 132.2 mL/min (90-130) H 09/28/22 03:50 Glucose 95 mg/dL (65-115) 09/28/22 03:50 Calculated Osmolality 293 mOsm/kg (285-295) 09/28/22 03:50 Calcium 8.9 mg/dL (8.5-10.5) 09/28/22 03:50 Magnesium 2.1 mg/dL (1.7-2.3) 09/27/22 03:06 Total Bilirubin 0.2 mg/dL (0.15-1.2) 09/26/22 10:20 AST 16 U/L (0-32) 09/26/22 10:20 ALT 28 U/L (0-33) 09/26/22 10:20 Alkaline Phosphatase 76 U/L (35-105) 09/26/22 10:20 Troponin T Baseline 9 ng/L (0-10) 09/26/22 10:20 Troponin T 120 Minute 8.04 ng/L (0-10) 09/26/22 12:49 Delta Troponin T -0.96 ABS# (0-10) L 09/26/22 12:49 Troponin T Hi Sens 6Hr 6.56 ng/L (0-10) 09/26/22 16:32 Troponin T Hi Sens 6Hr Delta -2.44 ng/L (0-12) L 09/26/22 16:32 Total Protein 6.1 g/dL (6.6-8.7) L 09/26/22 10:20 Albumin 3.9 g/dL (3.5-5.2) 09/26/22 10:20 Globulin 2.2 g/dL (1.3-4.6) 09/26/22 10:20 Urine Color Yellow (Yellow) 09/26/22 20:00 Urine Appearance Hazy (CLEAR) A 09/26/22 20:00 Urine pH 8 (5-7) H 09/26/22 20:00 Ur Specific Mcdonald 1.010 (1.005-1.030) 09/26/22 20:00 Urine Protein Neg (Negative) 09/26/22 20:00 Urine Glucose (UA) Norm (Normal) 09/26/22 20:00 Urine Ketones Negative (Negative) 09/26/22 20:00 Urine Blood Neg (Negative) 09/26/22 20:00 Urine Nitrate Positive (Negative) H 09/26/22 20:00 Urine Bilirubin Neg (Negative) 09/26/22 20:00 Prot Sulfosalicylic Acd Negative (Negative) 09/26/22 20:00 Urine Urobilinogen Norm mg/dL (Negative) 09/26/22 20:00 Ur Leukocyte Esterase Negative (Negative) 09/26/22 20:00 Urine RBC None /hpf (0-2) 09/26/22 20:00 Urine WBC 5-10 /hpf (0-5) H 09/26/22 20:00 Ur Squamous Epith Cells 0-4 /hpf (0-5) H 09/26/22 20:00 Amorphous Sediment Not Reportable 09/26/22 20:00 Urine Bacteria 3+ /hpf (NONE) H 09/26/22 20:00 Vitals Last Vital Signs Temp 97.6 F 09/28/22 04:00 Pulse 111 H 09/28/22 08:44 Resp 20 H 09/28/22 08:30 BP 116/83 09/28/22 05:00 Pulse Ox 95 09/28/22 08:30 O2 Del Method Nasal Cannula 09/28/22 08:30 O2 Flow Rate 2 09/28/22 08:30 FiO2 28 09/27/22 05:10 Discharge Plan Discharge Patient Disposition: Home Condition: Stable Prescriptions: New levofloxacin 500 mg tablet 500 mg PO DAILY 5 Days Qty: 5 0RF Continued albuterol sulfate 90 mcg/actuation HFA aerosol inhaler 2 inh inhalation Q4H PRN (Reason: shortness of breath or wheezing) Qty: 8.5 0RF ipratropium-albuterol 0.5 mg-3 mg(2.5 mg base)/3 mL Solution For Nebulization 3 ml INHALATION Q4H PRN (Reason: Shortness Of Breath) hydrocodone-acetaminophen 5-325 mg Tablet 1 tab PO Q6H MDD 4 TABS PRN (Reason: Pain) tramadol 50 mg Tablet 25 mg PO QAM PRN (Reason: Pain) propranolol 10 mg Tablet 10 mg PO DAILY Migraine Relief 250-250-65 mg Tablet 1 tab PO Q6H PRN (Reason: Migraine Headache) Claritin 10 mg Tablet 10 mg PO DAILY PRN (Reason: Allergy Symptoms) phenylephrine HCl 5 mg Tablet 5 mg PO BID PRN (Reason: Allergy Symptoms) Saline Nasal 0.65 % Aerosol,[place] 1 spray INTRANASAL BID PRN (Reason: UNKNOWN) phenylephrine-guaifenesin 10-400 mg Tablet 1 tab PO DAILY PRN (Reason: Sinus Symptoms) Xyzal 5 mg Tablet 5 mg PO QPM Rx Instructions: FOR 14 DAYS (RX FILLED 09/23/22) Mucinex 600 mg Tablet Extended Release 12hr 600 mg PO DAILY PRN (Reason: Congestion) Incruse Ellipta 62.5 mcg/actuation Blister With Device 1 inh INHALATION DAILY prednisone 20 mg Tablet 40 mg PO QAM 5 Days Qty: 5 0RF Rx Instructions: FOR 4 DAYS (RX FILLED 09/23/22) Discontinued azithromycin 250 mg Tablet 250 mg PO DAILY Rx Instructions: FOR 4 DAYS (RX FILLED 09/23/22) Discharge Orders: Discharge Order (Routine); Ordered 09/28/22 Ordered By: Damon Malone Referrals: Nurys Brooks DO [Primary Care Provider] - Patient Instructions: Levofloxacin (By mouth) (Levaquin, Levaquin Leva-perlita), COPD (Chronic Obstructive Pulmonary Disease) (DC), CPAP (GEN), Opioid Safety Activity Restrictions/Additional Instructions: Please call Friday to schedule a follow-up appointment with your primary care provider. Discharge Attestations Time Spent in Discharge Care*: less than 30 min Quality Metrics Clinical Quality Measures [ No reported AMI, CVA or VTE this stay] Coding Level of Care Code Acute Code for [facility] Fwd Diagnoses Respiratory failure with hypoxia and hypercapnia J96.91; J96.92 COPD exacerbation J44.1
--- NOTE | 2022-09-28 11:35 | PC.NURSE ---
Discharged patient. IV removed. educated on upcoming appointments, new medications, and CPAP use at night. Patient left via wheelchair with family members.
== END 2022-09-28 10:50 | disposition home or self-care (01) | DRG 190 ==
LOC: ER 10:11 → MEDSURG 15:33 → ICU 17:37 → MEDSURG 18:54 → ICU 18:54
PROVIDERS: Admitting Provider Internal Medicine; Emergency Provider Family Medicine; PCP Family Medicine; Visit Provider Internal Medicine
DX: J44.1 Chronic obstructive pulmonary disease with (acute) exacerbation (principal); J96.91 Respiratory failure, unspecified with hypoxia; J96.92 Respiratory failure, unspecified with hypercapnia; N39.0 Urinary tract infection, site not specified; Z99.81 Dependence on supplemental oxygen; Z79.51 Long term (current) use of inhaled steroids; Z79.891 Long term (current) use of opiate analgesic; F17.200 Nicotine dependence, unspecified, uncomplicated
CPT/HCPCS: 36415; 36600; 71045; 80048; 80051; 80053; 81001; 82330; 82805; 83735; 84484; 85025; 87077; 87086; 87186; 93005; 94640; 94660; 96372; 96374; 96375; 96376; 99291; G0378; J0696; J1100; J1650; J1885; J2060; J3486; J7614; J7644

== ENCOUNTER 2022-10-04 11:07 | Observation (INO) | payer MEDICAID, SELFPAY ==
[2022-10-04] VITALS (19 sets, daily range): BP systolic 106–128; BP diastolic 72–89; PULSE 77–124; RESP 14–34; TEMP 36.3–36.8; O2SAT 92–98; BMI 24.4
--- NOTE | 2022-10-04 11:10 | ED_ITS ---
HPI - SOB/Dyspnea General: Chief Complaint: Shortness of Breath/Dyspnea Stated Complaint: shortness of breath Time Seen by Provider: 10/04/22 11:10 History of Present Illness: HPI Narrative: Ms. Garza is a 47-year-old lady with significant past medical history of COPD with chronic hypoxic respiratory failure and recent hospitalization for acute respiratory failure presenting to the emergency department for shortness of breath and fever. She notes improvement upon discharge however worsening starting last night. She has had progressively worsening and now severe dyspnea despite home respiratory treatments. She does report that she had a number of m edication changes including no longer having her antianxiety medications and therefore has not been able to tolerate her BiPAP at home. No other specific changes in health, exacerbating, or alleviating factors identified. Onset (ago): hour(s) Context: recent illness Timing: progressively worsening Severity: severe Exacerbating factors: exertion Relieving factors: nothing Known history of: COPD Associated symptoms: Reports chest congestion and fever(s) Review of Systems General: Reports: 10 or more systems reviewed and unremarkable except in HPI and below Const: Reports: fever(s) Resp: Reports: chest congestion PFSH ED PFSH: Medical History Acute exacerbation of chronic obstructive airways disease COPD (chronic obstructive pulmonary disease) COPD exacerbation Respiratory failure with hypoxia and hypercapnia Social History Smoking and tobacco status: current every day smoker Physical Exam Const: COMMON NORMALS: alert GENERAL APPEARANCE: cooperative and well developed HENMT: COMMON NORMALS: normocephalic and atraumatic HEAD & SCALP: normocephalic and atraumatic Eye: COMMON NORMALS: conjunctivae normal CONJUNCTIVA: Yes conjunctivae normal SCLERA: sclerae normal Neck/C-Spine: COMMON NORMALS: supple GENERAL: Yes trachea midline Resp: EFFORT & INSPECTION: Yes tachypneic and Yes labored AUSCULTATION: diminished lung sounds Cardio: COMMON NORMALS: regular rate and regular rhythm RATE: regular rate RHYTHM: regular rhythm GI: COMMON NORMALS: Soft to palpation PALPATION: Yes Soft to palpation and No Tenderness to palpation present (GI) Extremity: GENERAL: Yes normal exam except as noted and No edema Neuro: COMMON NORMALS: moves all extremities SENSORIUM/ORIENTATION: Yes alert and No Orientation impaired Psych: COMMON NORMALS: mental status grossly normal and Normal thought process present THOUGHT PROCESS: Normal thought process present Course Vital Signs: Vital signs: Vital Signs Temperature 97.8 F 10/06/22 07:47 Pulse Rate 89 10/06/22 11:26 Respiratory Rate 16 10/06/22 11:26 Blood Pressure 128/81 10/06/22 11:26 Pulse Oximetry 93 10/06/22 11:26 Oxygen Delivery Me thod Nasal Cannula 10/06/22 07:47 Oxygen Flow Rate 2 10/06/22 07:30 Fraction of Inspir ed Oxygen 30 10/06/22 08:03 MDM - SOB/Dyspnea Medical Decision Making 47-year-old lady with COPD and chronic hypoxic respiratory failure presenting to the emergency department for shortness of breath and anxiety, unable to tolerate BiPAP at home. Exam as above with evidence of COPD exacerbation. EKG demonstrates sinus rhythm with normal axis and intervals, no STEMI Labs notable for leukocytosis, normal hemoglobin and platelet count. ABG with hypercapnia. Metabolic panel with mild evidence of dehydration, transaminitis is noted. Negative range 2-hour delta troponin. Only minimal elevation and BNP. Negative rapid COVID. Chest x-ray demonstrates no lobar consolidation or pneumothorax. Patient treated with BiPAP and RT treatments as well as steroids, antinausea, anxiolysis. Respiratory effort appears improved however given severity of respiratory distress and required interventions patient requires inpatient admission for exacerbation of COPD. The results of ED evaluation were discussed with the patient including plan for admission due to requirement for level of care not available if discharged to prevent significant worsening/deterioration. Patient agreeable with plan. Discussed with hospitalist service who was agreeable to admit patient. Medical Records I reviewed the patient's medical records. Lab Data I reviewed the patient's lab results. 10/06/22 05:35 10/05/22 04:18 Labs/Radiology: Radiology Impressions Chest X-Ray 10/04/22 11:22 Impression: Atherosclerosis and hyperinflation. Laboratory Results WBC 14.6 10^3/uL (4.0-10.0) H 10/04/22 12:07 RBC 4.40 10^6/uL (4.1-5.3) 10/04/22 12:07 Hgb 13.0 g/dL (11.5-15.3) 10/04/22 12:07 Hct 43.3 % (37.0-47.0) 10/04/22 12:07 MCV 98.4 fl (81-99) 10/04/22 12:07 MCH 29.5 pg (28.0-34.0) 10/04/22 12:07 MCHC 30.0 g/dL (30.0-36.0) 10/04/22 12:07 RDW 13.2 % (12.1-15.1) 10/04/22 12:07 Plt Count 195 10^3/cmm (130-400) 10/04/22 12:07 MPV 9.5 fL (7.4-10.4) 10/04/22 12:07 Neut % (Auto) 75.2 % 10/04/22 12:07 Lymph % (Auto) 14.8 % 10/04/22 12:07 [place] % (Auto) 8.3 % 10/04/22 12:07 Eos % (Auto) 0.9 % 10/04/22 12:07 Baso % (Auto) 0.5 % 10/04/22 12:07 Neut # (Auto) 11.02 10^3/uL (1.8-7.7) H 10/04/22 12:07 Lymph # (Auto) 2.2 10^3/uL (0.8-4.8) 10/04/22 12:07 [place] # (Auto) 1.2 10^3/uL (0.2-0.9) H 10/04/22 12:07 Eos # (Auto) 0.1 10^3/uL (0.0-0.8) 10/04/22 12:07 Baso # (Auto) 0.1 10^3/uL (0.0-0.1) 10/04/22 12:07 Nucleated RBC % (auto) 0 % 10/04/22 12:07 Nucleated RBCs # 0.0 /100WBC 10/04/22 12:07 Specimen Type Arterial 10/04/22 11:53 Sample Site Radial, left 10/04/22 11:53 ABG pH 7.37 (7.35-7.45) 10/04/22 11:53 ABG pCO2 72.9 mmHg (35-45) H* 10/04/22 11:53 ABG pO2 116.0 mmHg (80.0-100.0) H 10/04/22 11:53 ABG HCO3 42.2 mmol/L (22-26) H 10/04/22 11:53 ABG Base Excess 13.4 mmol/L (-2.0-2.0) H 10/04/22 11:53 Jason Test Pos 10/04/22 11:53 Hematocrit 41.8 % (37-47) 10/04/22 11:53 Hgb O2 Saturation 95.7 % (95-100) 10/04/22 11:53 Carboxyhemoglobin 3.3 %THgb (0.4-20.1) 10/04/22 11:53 Methemoglobin 0.5 % (0.4-1.5) 10/04/22 11:53 Total Hemoglobin 13.6 g/dL (12-16) 10/04/22 11:53 O2 Delivery Device Nc 10/04/22 11:53 O2 Liters/Min 2.0 % 10/04/22 11:53 FiO2 28.0 % 10/04/22 11:53 Hospice Volunteer ID Cak 10/04/22 11:53 Sodium 134 mmol/L (136-145) L 10/04/22 12:07 Potassium 5.0 mmol/L (3.5-5.1) 10/04/22 12:07 Chloride 94 mmol/L (98-107) L 10/04/22 12:07 Carbon Dioxide 35 mmol/L (22-29) H 10/04/22 12:07 Anion Gap 10.0 (5-19) 10/04/22 12:07 BUN 12 mg/dL (6-20) 10/04/22 12:07 Creatinine 0.3 mg/dL (0.5-0.9) L 10/04/22 12:07 GFR Calculation 238.5 mL/min (90-130) H 10/04/22 12:07 Glucose 97 mg/dL (65-115) 10/04/22 12:07 Calculated Osmolality 278 mOsm/kg (285-295) L 10/04/22 12:07 Lactic Acid 0.7 mmol/L (0.5-2.2) 10/04/22 12:07 Calcium 8.5 mg/dL (8.5-10.5) 10/04/22 12:07 Total Bilirubin 0.2 mg/dL (0.15-1.2) 10/04/22 12:07 AST 35 U/L (0-32) H 10/04/22 12:07 ALT 79 U/L (0-33) H 10/04/22 12:07 Alkaline Phosphatase 69 U/L (35-105) 10/04/22 12:07 Troponin T Baseline 10 ng/L (0-10) 10/04/22 12:07 NT-Pro-B Natriuret Pep 272 pg/mL (0-125) H 10/04/22 12:07 Total Protein 5.7 g/dL (6.6-8.7) L 10/04/22 12:07 Albumin 3.5 g/dL (3.5-5.2) 10/04/22 12:07 Globulin 2.2 g/dL (1.3-4.6) 10/04/22 12:07 SARS-CoV-2 Ag (Rapid) negative 10/04/22 11:30 Discharge Plan Discharge Patient Disposition: Admitted As Inpatient Admit Provider: Farida Smith Clinical Impression: Acute exacerbation of chronic obstructive airways disease Condition: Stable Coding Level of Care Code ED Construction And Maintenance Inspector for [facility]
--- NOTE | 2022-10-04 11:22 | XR_ITS ---
WS: [id number] Portable AP upright chest, 10/04/2022 Clinical Data: sob Comparison: Portable chest, 09/26/2022 Findings: No nodules, masses or effusions are seen. The heart is normal. The pulmonary vascularity is not increased. No pneumonia or pneumothorax is seen. The aortic arch and thoracic aorta show mild to rtuosity. The diaphragms are flattened. There are monitor leads on the chest wall. XR/XR chest 1V portable [id number] Impression: Atherosclerosis and hyperinflation.
--- NOTE | 2022-10-04 11:23 | ECG_ITS ---
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 Measurements Intervals [place] Rate: 86 P: 151 TN: 127 QRS: 117 QRSD: 72 T: 133 QT: 374 QTc: 450 Interpretive Statements SINUS RHYTHM ARM LEADS REVERSED [INVERTED P AND QRS IN I] Compared to ECG 09/26/2022 16:32:35 Atrial abnormality no longer present Indeterminate axis no longer present Myocardial infarct finding no longer present Electronically Signed On 10-04-2022 12:22:36 CDT by Connie Lopez M.D. [id number]
[2022-10-04] MEDS: dexamethasone 10 mg/mL INJ IVP (11:29)
[2022-10-04] MEDS: ipratropium-albuterol 3 mL Neb INHALATION ×2 (11:42→14:40)
[2022-10-04 11:56] LABS: SARS Covid-2 Antigen negative
[2022-10-04 12:04] LABS: ABG PCO2 72.9 mmHg (35-45); ABG PH Result 7.37 (7.35-7.45); Arterial Blood Gas Hematocrit 41.8 % (37-47); Base Excess ABG 13.4 mmol/L (-2.0-2.0); Blood Gas Allen Test Pos; Blood Gas Operator Identificat CAK; Blood Gas Sample Site Radial, left; Blood Gas Sample Type Arterial; Carboxyhemoglobin 3.3 %THgb (0.4-20.1); HCO3 ABG 42.2 mmol/L (22-26); HGB O2 Sat 95.7 % (95-100); Methemoglobin 0.5 % (0.4-1.5); Oxygen Device NC; Total Hemoglobin 13.6 g/dL (12-16)
[2022-10-04] MEDS: albuterol 2.5 mg/3 mL Neb INHALATION ×4 (12:13→20:18)
[2022-10-04 12:15] LABS: Basophils # 0.1 10^3/uL (0.0-0.1); Basophils % 0.5 %; Eosinophils # 0.1 10^3/uL (0.0-0.8); Eosinophils % 0.9 %; Hematocrit 43.3 % (37.0-47.0); Lymphocytes # 2.2 10^3/uL (0.8-4.8); Lymphocytes % 14.8 %; Mean Corpuscular Hemoglobin 29.5 pg (28.0-34.0); Mean Corpuscular Volume 98.4 fl (81-99); Mean Platelet Volume 9.5 fL (7.4-10.4); Monocytes # 1.2 10^3/uL (0.2-0.9); Monocytes % 8.3 %; Neutrophils # 11.02 10^3/uL (1.8-7.7); Neutrophils % 75.2 %; Nucleated Red Blood Cells % 0 %; Platelet Count 195 10^3/cmm (130-400); Red Cell Distribution Width 13.2 % (12.1-15.1); White Blood Count 14.6 10^3/uL (4.0-10.0)
[2022-10-04 12:33] LABS: Lactic Sepsis W/Reflex 0.7 mmol/L (0.5-2.2)
[2022-10-04 12:45] LABS: Alanine Aminotransferase 79 U/L (0-33); Albumin Level 3.5 g/dL (3.5-5.2); Alkaline Phosphatase 69 U/L (35-105); Blood Urea Nitrogen 12 mg/dL (6-20); Calcium 8.5 mg/dL (8.5-10.5); Carbon Dioxide 35 mmol/L (22-29); Chloride 94 mmol/L (98-107); Globulin 2.2 g/dL (1.3-4.6); Glomerular Filtration Rate 238.5 mL/min (90-130); Glucose 97 mg/dL (65-115); NT Pro B Type Natriuretic Pept 272 pg/mL (0-125); Osmolality Calculated 278 mOsm/kg (285-295); Sodium 134 mmol/L (136-145); Total Bilirubin 0.2 mg/dL (0.15-1.2); Total Protein 5.7 g/dL (6.6-8.7)
[2022-10-04 12:49] LABS: Aspartate Amino Transferase 35 U/L (0-32)
[2022-10-04 13:07] LABS: Troponin(5th) Baseline 10 ng/L (0-10)
[2022-10-04] MEDS: LORazepam 2 mg/mL INJ 1 mL 0.5 MG IVP (13:08)
--- NOTE | 2022-10-04 13:20 | PC.NURSE ---
Patient hooked up to continuous bedside cardiac monitoring.
--- NOTE | 2022-10-04 13:23 | ECG_ITS ---
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 Measurements Intervals [place] Rate: 84 P: 153 [place]: 129 QRS: 115 QRSD: 80 T: 138 QT: 373 QTc: 443 Interpretive Statements SINUS RHYTHM ARM LEADS REVERSED [INVERTED P AND QRS IN I] Compared to ECG 10/04/2022 11:28:44 No significant changes Electronically Signed On 10-05-2022 6:21:25 CDT by Connie Lopez M.D. [id number]
[2022-10-04] MEDS: ondansetron 2 mg/ML SDV 2 mL 4 MG IVP (14:19)
--- NOTE | 2022-10-04 15:11 | PM.HP ---
Providers/Chief Complaint Admitting Physician: Farida Smith MD Primary Care Provider: Nurys Brooks DO Chief Complaint: shortness of breath History of Present Illness Rebekah Gabriel is a 47 year old female with history of oxygen dependent COPD uses 2 to 3 L of oxygen at baseline, active smoker 1 pack/day, presented with chief complaint of shortness of breath for last 1 day, patient is endorsing fever however she has not noticed productive cough she decided to come to the ER where she was diagnosed with acute hypercapnic compensated respiratory failure however patient received sedatives in the ER which made her more drowsy, repeat ABG showed worsening of PCO2, I have decided to keep patient on BiPAP for now, she is full code I have started her on antibiotics and IV steroids Review of Systems Const: Reports: body aches Eyes: Denies: change in vision ENMT: Denies: throat pain Card: Denies: chest pain Resp: Reports: dyspnea GI: Denies: abdominal pain : Denies: flank pain Musc: Denies: neck pain Skin/Breast: Denies: rash Neuro: Reports: headache(s) Psych: Reports: sleeping more Medications/Allergies Home Medications Medication Instructions Recorded Confirmed Last Taken Type albuterol sulfate 90 mcg/actuation 2 inh inhalation Q4H PRN shortness 10/03/21 10/04/22 Unknown Rx aerosol inhaler of breath or wheezing #8.5 grams guaifenesin 600 mg tablet, 600 mg PO DAILY PRN Congestion 09/26/22 10/04/22 Unknown History extended release 12 hr (Mucinex) ipratropium 0.5 mg-albuterol 3 mg 3 ml inhalation Q4H PRN Shortness 09/26/22 10/04/22 Unknown History (2.5 mg base)/3 mL nebulization Of Breath soln levocetirizine 5 mg tablet (Xyzal) 5 mg PO QPM 09/26/22 10/04/22 10/03/22 History propranolol 10 mg tablet 10 mg PO DAILY 09/26/22 10/04/22 10/04/22 History budesonide-formoterol HFA 160 2 puff inhalation BID 10/04/22 10/04/22 10/03/22 History mcg-4.5 mcg/actuation aerosol inhaler (Symbicort) levofloxacin 500 mg tablet 500 mg PO DAILY 10/04/22 10/04/22 10/04/22 History nystatin 100,000 unit/mL oral 5 ml buccal QID 10/04/22 10/04/22 Unknown History suspension prednisone 20 mg tablet 10 mg PO QAM 10/04/22 10/04/22 10/04/22 History Allergies Allergy/AdvReac Type Severity Reaction Status Date / Time levofloxacin [From Levaquin] Allergy Unknown Verified 09/26/22 09:46 Penicillins Allergy Unknown Verified 09/26/22 09:46 Sulfa (Sulfonamide Allergy Unknown Verified 09/26/22 09:46 Antibiotics) PFSH Acute PFSH: Medical History Acute exacerbation of chronic obstructive airways disease COPD (chronic obstructive pulmonary disease) COPD exacerbation Respiratory failure with hypoxia and hypercapnia Social History Smoking and tobacco status: current every day smoker Vitals/I&O/Wt Last Vital Signs Temp 98.3 F 10/04/22 11:24 Pulse 97 10/04/22 14:41 Resp 18 10/04/22 14:41 BP 112/82 10/04/22 14:30 Pulse Ox 93 10/04/22 14:41 O2 Del Method BiPAP 10/04/22 14:41 O2 Flow Rate 2 10/04/22 12:58 FiO2 30 10/04/22 14:41 Weight last 48 hrs Weight 62.596 kg Physical Exam Narrative: Patient was fatigued and lethargic Currently on BiPAP I have increased her respiratory to 15 it was at 8 on BiPAP Tidal volume around 450 Patient is arousable she is able to answer a few questions Patient sat up on her own and asked for food Minimal airflow bilaterally No active wheeze because of minimal airflow despite being on BiPAP No active chest pain S1, S2 Looks euvolemic On 40% oxygen Data 10/04/22 12:07 10/04/22 12:07 A&P Assessment and plan (1) Acute exacerbation of chronic obstructive airways disease: (2) COPD (chronic obstructive pulmonary disease): (3) Nicotine dependence: Plan Acute COPD exacerbation Secondary to noncompliance Active smoker Continue BiPAP for tonight Patient is full code We will give her ceftriaxone and IV steroids Patient might need nicotine patch Patient is also endorsing to marijuana Check drug screen DVT prophylaxis Lovenox Close monitoring overnight for any deterioration of her mentation Request D-dimer to rule out PE Attestations Medical Necessity Statement*: Continue medical management anticipating less than 2 midnights for management of COPD exacerbation Diagnoses Acute exacerbation of chronic obstructive airways disease J44.1 COPD (chronic obstructive pulmonary disease) J44.9 Nicotine dependence F17.200
[2022-10-04 15:30] LABS: Troponin 5 2HR 8.22 ng/L (0-10)
--- NOTE | 2022-10-04 15:57 | ECG_ITS ---
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 Measurements Intervals [place] Rate: 90 P: 93 OK: 117 QRS: -55 QRSD: 74 T: 82 QT: 359 QTc: 440 Interpretive Statements SINUS RHYTHM WITH SHORT OK INTERVAL LEFT AXIS DEVIATION [QRS AXIS < -30] POSSIBLE RIGHT VENTRICULAR CONDUCTION DELAY [RSR (QR) IN V1/V2] POSSIBLE ANTERIOR MYOCARDIAL INFARCTION , OF INDETERMINATE AGE [30 ms Q WAVE IN V3/V4, OR R < 0.2 mV IN V4] Compared to ECG 10/04/2022 13:09:14 Short OK interval now present Left-axis deviation now present Myocardial infarct finding now present Electronically Signed On 10-05-2022 6:19:03 CDT by Connie Lopez M.D. [id number]
[2022-10-04 16:01] LABS: Troponin 5 2HR Delta -1.78 ABS# (0-10)
[2022-10-04 16:16] LABS: ABG PH Result 7.33 (7.35-7.45); Alveolar-Arterial Oxygen Gradi 0.8 mmHg (5-10); Arterial Blood Gas Hematocrit 45.7 % (37-47); Base Excess ABG 11.9 mmol/L (-2.0-2.0); Blood Gas Allen Test Pos; Blood Gas Operator Identificat CAK; Blood Gas Sample Site Radial, left; Blood Gas Sample Type Arterial; HCO3 ABG 41.9 mmol/L (22-26); HGB O2 Sat 95.6 % (95-100); Ionized Calcium Level - ABG 1.2 mmol/L (1.1-1.4); Methemoglobin 0.4 % (0.4-1.5); Oxygen Device BIPAP; Potassium Level - ABG 5.2 mmol/L (3.5-5.0); Total Hemoglobin 14.9 g/dL (12-16)
[2022-10-04 16:18] LABS: ABG PCO2 79.2 mmHg (35-45)
[2022-10-04 19:07] LABS: D Dimer 0.32 ug/mIFEU (0-0.59)
[2022-10-04 20:08] LABS: Troponin 5 6HR 6.11 ng/L (0-10)
[2022-10-04] MEDS: budesonide 0.5 mg/2 mL Neb INHALATION (20:18)
[2022-10-04 20:25] LABS: Troponin 5 6HR Delta -3.89 ng/L (0-12)
[2022-10-04 21:09] LABS: Glucose Point of Care 141 mg/dL (70-110)
[2022-10-04 21:58] LABS: ABG PH Result 7.38 (7.35-7.45); Arterial Blood Gas Hematocrit 44.5 % (37-47); Base Excess ABG 13.4 mmol/L (-2.0-2.0); Blood Gas Allen Test Pos; Blood Gas Sample Site Brachial, right; Blood Gas Sample Type Arterial; HCO3 ABG 42.1 mmol/L (22-26); Oxygen Device BIPAP; PO2 ABG 86.4 mmHg (80.0-100.0)
[2022-10-04 22:03] LABS: ABG PCO2 70.7 mmHg (35-45)
--- NOTE | 2022-10-04 23:50 | PC.NURSE ---
Pt and her SO have various c/o regarding care received during previous admission. C/o being sent home without anxiety medication that worked as well as not being able to fill her Singular d/t needing a PA. Spoke to Pt and SO regarding tx options, and informed them that this nurse would inform the physician to get orders for the pt. Pt and SO c/o also needing a new PCP, and a ride set up for appt through medicaid services. Will also refer pt to aviation project manager regarding concerns that need to be addressed regarding needing rides to and from appts.
[2022-10-04] MEDS: ALPRAZolam 0.5 mg Tablet PO (23:53)
[2022-10-05] VITALS (17 sets, daily range): BP systolic 101–123; BP diastolic 66–81; PULSE 99–116; RESP 16–36; TEMP 36.2–36.9; O2SAT 93–97
--- NOTE | 2022-10-05 | PC.NURSE ---
Patient on bipap requesting to eat and drink something after not eating all day. Patient's CO2 levels are still critical, patient educated that patient may come off bipap for a short period of time, but will need to go back on bipap to lower her CO2 levels. Bipap was removed at 2250 while patient ate and admission questions were answered. Patient was placed back on bipap at 2355.
[2022-10-05] MEDS: ondansetron 2 mg/ML SDV 2 mL 4 MG IVP (01:28)
--- NOTE | 2022-10-05 02:06 | PC.NURSE ---
Patient complaining of nausea and stomach pain since receiving anxiety medication. Patient was taken off of bipap mask in risk of emesis at 0125 and nausea medication was administered via IV. This nurse rounded back on patient at 0200 and was sleeping. This nurse woke patient up and asked if patient was still nauseous, patient said no. This nurse informed patient that she needed to be placed back on bipap to lower her CO2 levels. Mask was placed back on at 0205.
--- NOTE | 2022-10-05 02:44 | PC.RESP ---
10/04/2022 2145 Went in room to draw ABG on patient, significant other was aggressive about the patient needing water and needing to come off of the BIPAP. Patient is still lethargic at this time and unable to express this to me. I was prepping the patient for an ABG when the significant other stated you better not bruise her. I am sick of all the bruises you all leave on her because you cant do your job. I did not respond. He then asked for water for her and I explained the risk of aspiration, to which he replied, I know all about that, this isnt her first time wearing this. RN notified.
--- NOTE | 2022-10-05 02:49 | PC.RESP ---
10/05/2022 0230 Called by RN, significant other was found adjusting the patients mask. Mask has a large leak and machine alarming. I spoke with nursing who stated someone keeps taking the patient off of the BIPAP and putting her on a NC. No one in nursing has did this. I spoke with the significant other who also denied this. Patient claimed she removed mask herself. I explained the importance of the BIPAP and patient and significant other were both verbally aggressive about the use of it. Patient has had take out food and currently has a drink at bedside that she is using a straw to drink out of with the mask on. I again cautioned about the risk of aspiration.
--- NOTE | 2022-10-05 03:06 | PC.NURSE ---
Pt and her SO had been instructed by RT that the pt needed to limit po intake d/t aspiration risk, as well as the fact that the Pt CO2 level was extremely elevated and the pt needed to remain on the bipap, or the risk of her was likely. Pt has already been off of her bipap to eat [employer] meal that her SO brought her. Pts SO has been seen by this nurse messing with the pts bipap mask, and there is a question of whether or not that the SO is messing w/the actual bipap machine d/t the high frequency that the alarms continue to go off. RT was notified that the pts machine con't to alarm, needing her mask to be adjusted. Rt came to bedside and spoke with the pt and her SO, to which the both became belligerent with staff stating if you are going to be rude you can just get the fuck out of here , we will just leave the hospital . Pt states that she knows that she is going to , and she doesn't deserve to be treated with such disrespect. This nurse was witness to the conversation w/RT and the pt as well as SO, the conversation was precise and to the point on why the pt needed to remain on the bipap for health, as well as the consequences of not wearing the bipap and messing with the mask and machine. Follow up testing was also discussed w/Pt and SO by the RT. Pt and SO agreed w/tx at this time, and RTs assessment as well as further testing. retail field supervisor notified of what transpired in the pt room, and who was involved.
[2022-10-05 05:14] LABS: Basophils % 0.1 %; Hematocrit 44.1 % (37.0-47.0); Hemoglobin 13.3 g/dL (11.5-15.3); Lymphocytes # 1.1 10^3/uL (0.8-4.8); Lymphocytes % 7.6 %; Mean Corpuscular HGB Conc 30.2 g/dL (30.0-36.0); Mean Corpuscular Hemoglobin 29.1 pg (28.0-34.0); Mean Corpuscular Volume 96.5 fl (81-99); Mean Platelet Volume 9.8 fL (7.4-10.4); Monocytes # 1.3 10^3/uL (0.2-0.9); Neutrophils # 12.31 10^3/uL (1.8-7.7); Neutrophils % 82.9 %; Nucleated Red Blood Cells % 0 %; Platelet Count 223 10^3/cmm (130-400); Red Blood Count 4.57 10^6/uL (4.1-5.3); Red Cell Distribution Width 13.1 % (12.1-15.1); White Blood Count 14.9 10^3/uL (4.0-10.0)
--- NOTE | 2022-10-05 05:35 | P.PN_ITS ---
Subjective Subjective: Patient compensated her PCO2 PCO2 around 70 pH compensated overnight Patient to remain on BiPAP at nighttime and as needed on daytime Afebrile Leukocytosis 14,000 Active smoker Patient wants to eat Agitated Overnight events noted Patient is unhappy about the last night events She was feeling hungry and wanted to eat her [employer] meal while being on BiPAP, she was instructed by the RT and the nursing staff which made her and significant other very upset I will inform charge nurse today Vitals/I&O/Wt Last Vital Signs Temp 97.5 F L 10/05/22 03:00 Pulse 114 H 10/05/22 03:21 Resp 18 10/05/22 03:00 BP 113/79 10/05/22 03:00 Pulse Ox 95 10/05/22 03:21 O2 Del Method BiPAP 10/05/22 03:00 O2 Flow Rate 2 10/04/22 12:58 FiO2 30 10/05/22 03:21 10/04/22 10/04/22 10/05/22 14:59 22:59 06:59 Output Total 500 / 500 400 / 900 Balance -500 / -500 -400 / -900 Weight last 48 hrs Weight 62.596 kg Physical Exam Narrative: Thin lean female Diminished airflow Currently on BiPAP Nonfocal neuro exam GCS 15 S1, S2 Abdomen soft Lower extremity trace edema Data 10/05/22 04:18 10/05/22 04:18 A&P Assessment and plan (1) Nicotine dependence: (2) Acute exacerbation of chronic obstructive airways disease: (3) COPD (chronic obstructive pulmonary disease): Plan Acute COPD exacerbation due to active smoking Noncompliance Patient will need optimization of her inhalers at home We will do pulse oximeter overnight to see if she would qualify for BiPAP at home Afebrile No signs of consolidation on chest x-ray I have given her ceftriaxone for COPD exacerbation Continue budesonide Patient was counseled to remain compliant with her BiPAP and breathing regimen in order to avoid decompensation of her respiratory status We will give her frequent breaks from BiPAP to let her eat Persistent leukocytosis noted which could be related to stress leukemoid reaction and use of steroids I would like to monitor patient 1 more day pH is compensated PCO2 is around 70 Regular diet DVT prophylaxis on board D-dimer unremarkable Attestations 2 Medical Necessity Statement*: Continue medical management Diagnoses Nicotine dependence F17.200 Acute exacerbation of chronic obstructive airways disease J44.1 COPD (chronic obstructive pulmonary disease) J44.9
[2022-10-05 05:37] LABS: Anion Gap 9.9 (5-19); Blood Urea Nitrogen 21 mg/dL (6-20); Calcium 9.4 mg/dL (8.5-10.5); Carbon Dioxide 40 mmol/L (22-29); Chloride 93 mmol/L (98-107); Glomerular Filtration Rate 107.2 mL/min (90-130); Glucose 103 mg/dL (65-115); Osmolality Calculated 289 mOsm/kg (285-295); Phosphorus 4.5 mg/dL (2.5-4.5); Potassium 4.9 mmol/L (3.5-5.1); Sodium 138 mmol/L (136-145)
[2022-10-05 06:11] LABS: Glucose Point of Care 106 mg/dL (70-110)
[2022-10-05] MEDS: budesonide 0.5 mg/2 mL Neb INHALATION (07:35)
[2022-10-05] MEDS: albuterol 2.5 mg/3 mL Neb INHALATION ×3 (07:35→15:11)
[2022-10-05] MEDS: cefTRIAXone 1,000 MG in sodium chloride 0.9% (plus) 50 ML 100 MG IV (08:52)
[2022-10-05] MEDS: azithromycin 250 mg Tablet 500 MG PO (08:52)
[2022-10-05] MEDS: sennosides-docusate Tablet 1 TAB PO (09:01)
[2022-10-05] MEDS: TRAMadol 50 mg Tablet 25 MG PO (10:54)
[2022-10-05] MEDS: ALPRAZolam 0.5 mg Tablet 0.25 MG PO ×2 (10:55→22:33)
[2022-10-05] MEDS: acetaminophen 500 mg Tablet PO (15:20)
[2022-10-05] MEDS: ipratropium-albuterol 3 mL Neb INHALATION (19:22)
[2022-10-06] VITALS: BP 93/57; PULSE 95; RESP 18; TEMP 36.6; O2SAT 96
[2022-10-06 04:00] VITALS: BP 100/66; PULSE 92; RESP 18; TEMP 36.3; O2SAT 95
--- NOTE | 2022-10-06 05:09 | P.DS_ITS ---
Discharge Providers Date of Admission: 10/04/22 14:53 Date of Discharge: October 06, 2022 Attending Provider at Admission: Farida Smith MD Attending Provider at Discharge: Farida Smith MD Primary Care Provider: Nurys Brooks DO Diagnoses at Discharge Discharge Diagnosis (1) Nicotine dependence: Status: Acute (2) Acute exacerbation of chronic obstructive airways disease: Status: Acute (3) COPD (chronic obstructive pulmonary disease): Status: Acute Reason for Visit Reason for Visit: shortness of breath Hospital Course Hospital Course 47-year female with history of oxygen dependent COPD uses 3 L of oxygen at baseline, patient has noninvasive ventilator at home via [employer], presented to the hospital for worsening of COPD with diminished airflow bilaterally, patient was put on BiPAP that improved her hypercapnic hypoxic respiratory failure, patient is an active smoker, noncompliant, endorsing to use of marijuana, no consolidation on chest x-ray noted, patient was given budesonide along BiPAP which improved her respiratory status. Patient takes trazodone and Xanax on as- needed basis. Patient is stating that she has anxiety related to the big mass that she has at home she is also claiming that her breathing regimen was not refilled or prescribed during last visit that is why she is in the hospital. I have confirmed with continuous pillowcase cutter that she does have noninvasive ventilator at home via [employer]. I will give her pulmonary referral refill her breathing regimen she does have inhalers and nebulizers at home I did staff counsel her to use nebulizer because she has poor inspiratory effort Physical Exam Narrative: Awake and alert Diminished flow of air bilaterally No active wheezing GCS 15 Pleasant and cooperative Complaining of back pain No chest pain Discharge Data Studies Completed and Pending Completed Studies During Hospitalization Category Date Time Status XR chest 1V portable [id number] Stat Exams 10/04/22 11:22 Completed Pending at discharge Category Date Time Status CBC Auto Diff [Complete Blood Count w/Auto] AM LABS Lab 10/06/22 04:00 Ordered MRSA by PCR Stat Lab 10/04/22 15:13 Received Sputum Culture and Gram Stain Stat Lab 10/04/22 15:13 Uncollected Radiology Impressions Chest X-Ray 10/04/22 11:22 Impression: Atherosclerosis and hyperinflation. Laboratory Results WBC 14.9 10^3/uL (4.0-10.0) H 10/05/22 04:18 RBC 4.57 10^6/uL (4.1-5.3) 10/05/22 04:18 Hgb 13.3 g/dL (11.5-15.3) 10/05/22 04:18 Hct 44.1 % (37.0-47.0) 10/05/22 04:18 MCV 96.5 fl (81-99) 10/05/22 04:18 MCH 29.1 pg (28.0-34.0) 10/05/22 04:18 MCHC 30.2 g/dL (30.0-36.0) 10/05/22 04:18 RDW 13.1 % (12.1-15.1) 10/05/22 04:18 Plt Count 223 10^3/cmm (130-400) 10/05/22 04:18 MPV 9.8 fL (7.4-10.4) 10/05/22 04:18 Neut % (Auto) 82.9 % 10/05/22 04:18 Lymph % (Auto) 7.6 % 10/05/22 04:18 [place] % (Auto) 9.0 % 10/05/22 04:18 Eos % (Auto) 0.0 % 10/05/22 04:18 Baso % (Auto) 0.1 % 10/05/22 04:18 Neut # (Auto) 12.31 10^3/uL (1.8-7.7) H 10/05/22 04:18 Lymph # (Auto) 1.1 10^3/uL (0.8-4.8) 10/05/22 04:18 [place] # (Auto) 1.3 10^3/uL (0.2-0.9) H 10/05/22 04:18 Eos # (Auto) 0.0 10^3/uL (0.0-0.8) 10/05/22 04:18 Baso # (Auto) 0.0 10^3/uL (0.0-0.1) 10/05/22 04:18 Nucleated RBC % (auto) 0 % 10/05/22 04:18 Nucleated RBCs # 0.0 /100WBC 10/05/22 04:18 D-Dimer 0.32 ug/mIFEU (0-0.59) 10/04/22 18:33 Specimen Type Arterial 10/04/22 21:46 Sample Site Brachial, right 10/04/22 21:46 ABG pH 7.38 (7.35-7.45) 10/04/22 21:46 ABG pCO2 70.7 mmHg (35-45) H* 10/04/22 21:46 ABG pO2 86.4 mmHg (80.0-100.0) 10/04/22 21:46 ABG HCO3 42.1 mmol/L (22-26) H 10/04/22 21:46 ABG O2 Saturation 99.0 10/04/22 16:04 ABG Base Excess 13.4 mmol/L (-2.0-2.0) H 10/04/22 21:46 Jason Test Pos 10/04/22 21:46 A-a O2 Gradient 0.8 mmHg (5-10) L 10/04/22 16:04 Hematocrit 44.5 % (37-47) 10/04/22 21:46 Hgb O2 Saturation 95.6 % (95-100) 10/04/22 16:04 Carboxyhemoglobin 3.0 %THgb (0.4-20.1) 10/04/22 16:04 Methemoglobin 0.4 % (0.4-1.5) 10/04/22 16:04 Total Hemoglobin 14.9 g/dL (12-16) 10/04/22 16:04 Sodium 139.0 mmol/L (131-143) 10/04/22 16:04 Potassium 5.2 mmol/L (3.5-5.0) H 10/04/22 16:04 Glucose 125.0 mg/dL (70-115) H 10/04/22 16:04 Ionized Calcium 1.2 mmol/L (1.1-1.4) 10/04/22 16:04 O2 Delivery Device Bipap 10/04/22 21:46 O2 Liters/Min 2.0 % 10/04/22 11:53 FiO2 30.0 % 10/04/22 21:46 Mineral Engineer ID Alewe 10/04/22 21:46 Sodium 138 mmol/L (136-145) 10/05/22 04:18 Potassium 4.9 mmol/L (3.5-5.1) 10/05/22 04:18 Chloride 93 mmol/L (98-107) L 10/05/22 04:18 Carbon Dioxide 40 mmol/L (22-29) H 10/05/22 04:18 Anion Gap 9.9 (5-19) 10/05/22 04:18 BUN 21 mg/dL (6-20) H 10/05/22 04:18 Creatinine 0.6 mg/dL (0.5-0.9) 10/05/22 04:18 GFR Calculation 107.2 mL/min (90-130) 10/05/22 04:18 Glucose 103 mg/dL (65-115) 10/05/22 04:18 POC Glucose 106 mg/dL (70-110) 10/05/22 06:03 Calculated Osmolality 289 mOsm/kg (285-295) 10/05/22 04:18 Lactic Acid 0.7 mmol/L (0.5-2.2) 10/04/22 12:07 Calcium 9.4 mg/dL (8.5-10.5) 10/05/22 04:18 Phosphorus 4.5 mg/dL (2.5-4.5) 10/05/22 04:18 Magnesium 2.0 mg/dL (1.7-2.3) 10/05/22 04:18 Total Bilirubin 0.2 mg/dL (0.15-1.2) 10/04/22 12:07 AST 35 U/L (0-32) H 10/04/22 12:07 ALT 79 U/L (0-33) H 10/04/22 12:07 Alkaline Phosphatase 69 U/L (35-105) 10/04/22 12:07 Troponin T Baseline 10 ng/L (0-10) 10/04/22 12:07 Troponin T 120 Minute 8.22 ng/L (0-10) 10/04/22 14:59 Delta Troponin T -1.78 ABS# (0-10) L 10/04/22 14:59 Troponin T Hi Sens 6Hr 6.11 ng/L (0-10) 10/04/22 18:33 Troponin T Hi Sens 6Hr Delta -3.89 ng/L (0-12) L 10/04/22 18:33 C-Reactive Protein 3.0 mg/L (0.0-4.9) 10/05/22 04:18 NT-Pro-B Natriuret Pep 272 pg/mL (0-125) H 10/04/22 12:07 Total Protein 5.7 g/dL (6.6-8.7) L 10/04/22 12:07 Albumin 3.5 g/dL (3.5-5.2) 10/04/22 12:07 Globulin 2.2 g/dL (1.3-4.6) 10/04/22 12:07 SARS-CoV-2 Ag (Rapid) negative 10/04/22 11:30 Vitals Last Vital Signs Temp 97.4 F L 10/06/22 04:00 Pulse 92 10/06/22 04:00 Resp 18 10/06/22 04:00 BP 100/66 10/06/22 04:00 Pulse Ox 95 10/06/22 04:00 O2 Del Method Room Air 10/06/22 04:00 O2 Flow Rate 2 10/05/22 19:22 FiO2 30 10/05/22 12:00 Discharge Plan Discharge Patient Disposition: Home Condition: Stable Prescriptions: New alprazolam [Xanax] 0.25 mg tablet 0.25 mg PO BID PRN (Reason: anxiety) Qty: 14 0RF budesonide-formoterol [Symbicort] 160-4.5 mcg/actuation HFA aerosol inhaler 1 inh inhalation BID Qty: 10.2 4RF azithromycin 250 mg tablet 250 mg PO QMWF 5 Days Qty: 3 0RF ipratropium-albuterol 0.5 mg-3 mg(2.5 mg base)/3 mL solution for nebulization 3 ml inhalation Q8H PRN (Reason: shortness of breath or wheezing) Qty: 180 3RF Yupelri 175 mcg/3 mL solution for nebulization 175 mcg inhalation DAILY Qty: 90 3RF Spiriva Respimat 2.5 mcg/actuation mist 2 inh inhalation DAILY Qty: 4 5RF Continued albuterol sulfate 90 mcg/actuation HFA aerosol inhaler 2 inh inhalation Q4H PRN (Reason: shortness of breath or wheezing) Qty: 8.5 0RF ipratropium-albuterol 0.5 mg-3 mg(2.5 mg base)/3 mL Solution For Nebulization 3 ml INHALATION Q4H PRN (Reason: Shortness Of Breath) propranolol 10 mg Tablet 10 mg PO DAILY levocetirizine [Xyzal] 5 mg Tablet 5 mg PO QPM guaifenesin [Mucinex] 600 mg Tablet Extended Release 12hr 600 mg PO DAILY PRN (Reason: Congestion) nystatin 100,000 unit/mL Suspension 5 ml BUCCAL QID Rx Instructions: x 7 days Symbicort 160-4.5 mcg/actuation Hfa Aerosol Inhaler 2 puff INHALATION BID Discontinued Levaquin 500 mg Tablet 500 mg PO DAILY Rx Instructions: x 5 days prednisone 20 mg tablet 10 mg PO QAM Rx Instructions: FOR 4 DAYS (RX FILLED 09/23/22) Referrals: Nurys Brooks DO [Primary Care Provider] - Patient Instructions: Opioid Safety Discharge Attestations Time Spent in Discharge Care*: greater than 30 min Quality Metrics Clinical Quality Measures [ No reported AMI, CVA or VTE this stay] Coding Level of Care Code Acute Code for g Fwd Diagnoses Nicotine dependence F17.200 Acute exacerbation of chronic obstructive airways disease J44.1 COPD (chronic obstructive pulmonary disease) J44.9
[2022-10-06 05:54] LABS: Basophils % 0.4 %; Eosinophils # 0.2 10^3/uL (0.0-0.8); Eosinophils % 1.6 %; Hematocrit 37.8 % (37.0-47.0); Hemoglobin 11.2 g/dL (11.5-15.3); Lymphocytes # 3.3 10^3/uL (0.8-4.8); Lymphocytes % 32.5 %; Mean Corpuscular HGB Conc 29.6 g/dL (30.0-36.0); Mean Corpuscular Hemoglobin 29.1 pg (28.0-34.0); Mean Corpuscular Volume 98.2 fl (81-99); Mean Platelet Volume 9.2 fL (7.4-10.4); Monocytes # 0.8 10^3/uL (0.2-0.9); Monocytes % 8.2 %; Neutrophils # 5.77 10^3/uL (1.8-7.7); Nucleated Red Blood Cells % 0 %; Platelet Count 175 10^3/cmm (130-400); Red Blood Count 3.85 10^6/uL (4.1-5.3); Red Cell Distribution Width 13.4 % (12.1-15.1); White Blood Count 10.1 10^3/uL (4.0-10.0)
[2022-10-06 06:03] LABS: D Dimer <= 0.27 ug/mIFEU (0-0.59)
[2022-10-06] MEDS: albuterol 2.5 mg/3 mL Neb INHALATION (07:20)
[2022-10-06] MEDS: budesonide 0.5 mg/2 mL Neb INHALATION (07:20)
[2022-10-06 07:30] VITALS: PULSE 90; RESP 20; O2SAT 99
[2022-10-06 07:47] VITALS: BP 128/81; PULSE 87; RESP 16; TEMP 36.6; O2SAT 98
[2022-10-06 08:03] VITALS: PULSE 89; RESP 22; O2SAT 93
[2022-10-06] MEDS: TRAMadol 50 mg Tablet 25 MG PO (08:07)
[2022-10-06] MEDS: azithromycin 250 mg Tablet 500 MG PO (08:07)
[2022-10-06] MEDS: sennosides-docusate Tablet 1 TAB PO (08:08)
[2022-10-06] MEDS: acetaminophen 500 mg Tablet PO (08:08)
[2022-10-06] MEDS: propranolol 20 mg Tablet 10 MG PO (08:08)
[2022-10-06 11:26] VITALS: BP 128/81; PULSE 89; RESP 16; O2SAT 93
== END 2022-10-06 11:15 | disposition home or self-care (01) ==
LOC: ER 13:30 → MEDSURG 16:17
PROVIDERS: Admitting Provider Internal Medicine; Emergency Provider Emergency Medicine; PCP Family Medicine; Visit Provider Internal Medicine
DX: J44.1 Chronic obstructive pulmonary disease with (acute) exacerbation (principal); J96.22 Acute and chronic respiratory failure with hypercapnia; J96.21 Acute and chronic respiratory failure with hypoxia; F17.200 Nicotine dependence, unspecified, uncomplicated; F41.9 Anxiety disorder, unspecified; D72.829 Elevated white blood cell count, unspecified; E86.0 Dehydration; Z79.52 Long term (current) use of systemic steroids
CPT/HCPCS: 36415; 36416; 36600; 71045; 80048; 80051; 80053; 82330; 82803; 82805; 82962; 83605; 83735; 83880; 84100; 84484; 85025; 85378; 86140; 87070; 87205; 87426; 87641; 93005; 94640; 94660; 96365; 96375; 96376; 99285; G0378; J0696; J1100; J2060; J2405; J7613; J7626; Q0144

== ENCOUNTER 2022-10-19 10:06 | Observation (INO) | payer MEDICAID, SELFPAY ==
[2022-10-19] VITALS (21 sets, daily range): BP systolic 111–129; BP diastolic 71–88; PULSE 70–98; RESP 16–28; TEMP 36.5–36.7; O2SAT 94–100; BMI 24.9
--- NOTE | 2022-10-19 10:20 | XRR_ITS ---
PROCEDURE INFORMATION: Exam: XR Chest Exam date and time: 10/19/2022 11:13 AM Age: 47 years old Clinical indication: Shortness of breath; Additional info: SOB and cough.No history of trauma or recent surgery is provided. TECHNIQUE: Imaging protocol: Radiologic exam of the chest. 1image(s) are provided. Views: 1 view. COMPARISON: CR XR chest 1V portable [id number] 10/04/2022 11:41 AM FINDINGS: Lungs: There are chronic granulomatous calcifications present with chronic air trapping and scarring. No lobar consolidation is appreciated. Pleural spaces: There is some minimal costophrenic angle blunting. No pneumothorax is appreciated. Heart/Mediastinum: The cardiomediastinal silhouette is normal. No cardiac decompensation is appreciated. Diaphragm: The hemidiaphragms are symmetric. Bones/joints: Osseous alignment is maintained.No interval displaced fracture or dislocation is appreciated. There are some chronic appearing rib fractures demonstrated. Soft tissues: No radiopaque foreign body or subcutaneous emphysema is appreciated. Other findings: No significant interval changes are appreciated. XR/XR chest 1V portable [id number] IMPRESSION: There is chronic air trapping and granulomatous appearance of the parenchyma and hemithoraces similar overall.No interval acute cardiopulmonary changes are appreciated.
--- NOTE | 2022-10-19 10:45 | W.ED.SOB ---
Documented by User: ASTRID Vidales 10/19/22 12:46 HPI - SOB/Dyspnea General: Chief Complaint: Shortness of Breath/Dyspnea Stated Complaint: SOB Time Seen by Provider: 10/19/22 10:20 History of Present Illness: HPI Narrative: Patient is a 47-year-old female comes to the ED with shortness of breath. Patient has a history of COPD and is on 2 to 4 L of oxygen at home. Patient says her shortness of breath started approximately 2 days ago. She also endorses a dry nonproductive cough that started 2 days ago as well. Any exertion makes shortness of breath worse. Denies any nasal drainage or congestion, chest pain, fevers, heart palpitations, abdominal pain, nausea/vomiting, bladder or bowel symptoms. Patient states that she tried to quit smoking but recently started smoking 4 to 5 cigarettes daily again over the past week. Associated symptoms: Deny abdominal pain, chest pain, fever(s), nausea, orthopnea, palpitations or vomiting Review of Systems Const: Denies: fever(s), chills or fatigue Eyes: Denies: change in vision or eye discomfort ENMT: Denies: throat pain, odynophagia, nasal discharge or nasal congestion Card: Denies: chest pain, palpitations, edema, swelling of feet/ankles, dyspnea on exertion or orthopnea Resp: Reports: dyspnea and non-productive cough; Denies: productive cough GI: Denies: abdominal pain, nausea, vomiting, diarrhea, constipation or hematochezia : Denies: flank pain, dysuria or hematuria Musc: Denies: neck pain, back pain or extremity swelling Skin/Breast: Denies: rash or new lesions Neuro: Denies: headache(s), numbness in extremities or weakness in extremities PFS ED PFSH: Medical History Acute exacerbation of chronic obstructive airways disease Acute exacerbation of chronic obstructive airways disease COPD (chronic obstructive pulmonary disease) COPD exacerbation Nicotine dependence Respiratory failure with hypoxia and hypercapnia Social History Smoking and tobacco status: current every day smoker Physical Exam Const: COMMON NORMALS: patient oriented x3 HENMT: COMMON NORMALS: normocephalic HEAD & SCALP: normocephalic MOUTH: Normal oral and palatal mucosa present THROAT: posterior oropharynx normal and uvula midline Neck/C-Spine: COMMON NORMALS: supple GENERAL: Yes normal visual inspection Resp: COMMON NORMALS: normal respiratory effort, No retractions and No use of accessory muscles EFFORT & INSPECTION: No able to speak in complete sentences and Yes labored AUSCULTATION: wheezes expiratory wheezes and throughout Cardio: COMMON NORMALS: regular rate, regular rhythm, S1 normal heart sound present, S2 normal heart sound present, No gallops present (Cardio), No clicks present (Cardio), No murmurs present (Cardio) and Peripheral pulses 2+ throughout RATE: regular rate RHYTHM: regular rhythm HEART SOUNDS: S1 normal heart sound present and S2 normal heart sound present PERIPHERAL PULSES: Peripheral pulses 2+ throughout GI: COMMON NORMALS: Normal to inspection, nondistended, normoactive bowel sounds present, Soft to palpation, non-tender and no masses PALPATION: Yes Soft to palpation : COMMON NORMALS: Yes no CVA tenderness BLADDER/KIDNEY EXAM: Yes no CVA tenderness Back/Pelvis: COMMON NORMALS: no CVA tenderness Extremity: COMMON NORMALS: normal to inspection Neuro: COMMON NORMALS: patient oriented x3 GAIT: Yes Normal gait present Skin: GENERAL SKIN EXAM: dry skin Course Vital Signs: Vital signs: Vital Signs Temperature 98.1 F 10/19/22 10:11 Pulse Rate 70 10/19/22 11:58 Respiratory Rate 17 10/19/22 11:58 Blood Pressure 111/79 10/19/22 10:32 Pulse Oximetry 97 10/19/22 11:58 Oxygen Delivery Me thod Nasal Cannula 10/19/22 11:58 Oxygen Flow Rate 2 10/19/22 11:58 Fraction of Inspir ed Oxygen 35 10/19/22 11:05 MDM - SOB/Dyspnea Lab Data 10/19/22 11:12 10/19/22 11:12 Labs/Radiology: Radiology Impressions Chest X-Ray 10/19/22 10:20 IMPRESSION: There is chronic air trapping and granulomatous appearance of the parenchyma and hemithoraces similar overall.No interval acute cardiopulmonary changes are appreciated. Laboratory Results WBC 9.1 10^3/uL (4.0-10.0) 10/19/22 11:12 RBC 4.61 10^6/uL (4.1-5.3) 10/19/22 11:12 Hgb 13.6 g/dL (11.5-15.3) 10/19/22 11:12 Hct 46.4 % (37.0-47.0) 10/19/22 11:12 MCV 100.7 fl (81-99) H 10/19/22 11:12 MCH 29.5 pg (28.0-34.0) 10/19/22 11:12 MCHC 29.3 g/dL (30.0-36.0) L 10/19/22 11:12 RDW 13.0 % (12.1-15.1) 10/19/22 11:12 Plt Count 209 10^3/cmm (130-400) 10/19/22 11:12 MPV 10.4 fL (7.4-10.4) 10/19/22 11:12 Neut % (Auto) 76.2 % 10/19/22 11:12 Lymph % (Auto) 14.8 % 10/19/22 11:12 Preston % (Auto) 6.3 % 10/19/22 11:12 Eos % (Auto) 2.0 % 10/19/22 11:12 Baso % (Auto) 0.4 % 10/19/22 11:12 Neut # (Auto) 6.89 10^3/uL (1.8-7.7) 10/19/22 11:12 Lymph # (Auto) 1.3 10^3/uL (0.8-4.8) 10/19/22 11:12 Preston # (Auto) 0.6 10^3/uL (0.2-0.9) 10/19/22 11:12 Eos # (Auto) 0.2 10^3/uL (0.0-0.8) 10/19/22 11:12 Baso # (Auto) 0.0 10^3/uL (0.0-0.1) 10/19/22 11:12 Nucleated RBC % (auto) 0 % 10/19/22 11:12 Nucleated RBCs # 0.0 /100WBC 10/19/22 11:12 D-Dimer 0.37 ug/mIFEU (0-0.59) 10/19/22 11:12 Specimen Type Arterial 10/19/22 10:38 Sample Site Brachial, left 10/19/22 10:38 ABG pH 7.32 (7.35-7.45) L 10/19/22 10:38 ABG pCO2 83.0 mmHg (35-45) H* 10/19/22 10:38 ABG pO2 69.3 mmHg (80.0-100.0) L 10/19/22 10:38 ABG HCO3 42.9 mmol/L (22-26) H 10/19/22 10:38 ABG O2 Saturation 96.1 10/19/22 10:38 ABG Base Excess 13.2 mmol/L (-2.0-2.0) H 10/19/22 10:38 Jason Test N/a 10/19/22 10:38 A-a O2 Gradient 4.0 mmHg (5-10) L 10/19/22 10:38 Hematocrit 38.7 % (37-47) 10/19/22 10:38 Hgb O2 Saturation 90.6 % (95-100) L 10/19/22 10:38 Carboxyhemoglobin 5.0 %THgb (0.4-20.1) 10/19/22 10:38 Methemoglobin 0.7 % (0.4-1.5) 10/19/22 10:38 Total Hemoglobin 12.6 g/dL (12-16) 10/19/22 10:38 Sodium 143.0 mmol/L (131-143) 10/19/22 10:38 Potassium 4.4 mmol/L (3.5-5.0) 10/19/22 10:38 Glucose 115.0 mg/dL (70-115) 10/19/22 10:38 Ionized Calcium 1.2 mmol/L (1.1-1.4) 10/19/22 10:38 O2 Delivery Device Nc 10/19/22 10:38 O2 Liters/Min 2.0 % 10/19/22 10:38 FiO2 28.0 % 10/19/22 10:38 Sports Equipment Racker ID [email or web address] 10/19/22 10:38 Sodium 143 mmol/L (136-145) 10/19/22 11:12 Potassium 4.0 mmol/L (3.5-5.1) 10/19/22 11:12 Chloride 99 mmol/L (98-107) 10/19/22 11:12 Carbon Dioxide 39 mmol/L (22-29) H 10/19/22 11:12 Anion Gap 9.0 (5-19) 10/19/22 11:12 BUN 10 mg/dL (6-20) 10/19/22 11:12 Creatinine 0.4 mg/dL (0.5-0.9) L 10/19/22 11:12 GFR Calculation 171.1 mL/min (90-130) H 10/19/22 11:12 Glucose 102 mg/dL (65-115) 10/19/22 11:12 Calculated Osmolality 295 mOsm/kg (285-295) 10/19/22 11:12 Calcium 8.7 mg/dL (8.5-10.5) 10/19/22 11:12 Total Bilirubin 0.2 mg/dL (0.15-1.2) 10/19/22 11:12 AST 12 U/L (0-32) 10/19/22 11:12 ALT 15 U/L (0-33) 10/19/22 11:12 Alkaline Phosphatase 68 U/L (35-105) 10/19/22 11:12 Troponin T Baseline 11 ng/L (0-10) H 10/19/22 11:12 Total Protein 5.6 g/dL (6.6-8.7) L 10/19/22 11:12 Albumin 3.9 g/dL (3.5-5.2) 10/19/22 11:12 Globulin 1.7 g/dL (1.3-4.6) 10/19/22 11:12 Discharge Plan Discharge Patient Disposition: Admitted As Inpatient Admit Provider: Nicolsa Bernard Clinical Impression: Acute exacerbation of chronic obstructive airways disease, Acute and chronic respiratory failure with hypercapnia Condition: Stable Coding Level of Care Code ED Athletic Scout for Chg Fwd Documented by User: Jefe Sanchez MD 10/19/22 12:28 HPI - SOB/Dyspnea General: Chief Complaint: Shortness of Breath/Dyspnea Stated Complaint: SOB Time Seen by Provider: 10/19/22 10:20 [facility] ED PFSH: Medical History Acute exacerbation of chronic obstructive airways disease Acute exacerbation of chronic obstructive airways disease COPD (chronic obstructive pulmonary disease) COPD exacerbation Nicotine dependence Respiratory failure with hypoxia and hypercapnia Social History Smoking and tobacco status: current every day smoker Course Vital Signs: Vital signs: Vital Signs Temperature 98.1 F 10/19/22 10:11 Pulse Rate 70 10/19/22 11:58 Respiratory Rate 17 10/19/22 11:58 Blood Pressure 111/79 10/19/22 10:32 Pulse Oximetry 97 10/19/22 11:58 Oxygen Delivery Me thod Nasal Cannula 10/19/22 11:58 Oxygen Flow Rate 2 10/19/22 11:58 Fraction of Inspir ed Oxygen 35 10/19/22 11:05 MDM - SOB/Dyspnea Medical Decision Making Patient presents here with COPD exacerbation she is hypercapnic did place her on BiPAP repeat EKG shows some slight worsening hypercapnia we will adjust her settings she does have a chronic hypercapnia from her severe COPD x-ray shows no pneumonia she is in minimal distress here will admit for observation at this time I spoke to the hospitalist. Medical Records I reviewed the patient's medical records. Lab Data I reviewed the patient's lab results. 10/19/22 11:12 10/19/22 11:12 Labs/Radiology: Radiology Impressions Chest X-Ray 10/19/22 10:20 IMPRESSION: There is chronic air trapping and granulomatous appearance of the parenchyma and hemithoraces similar overall.No interval acute cardiopulmonary changes are appreciated. Laboratory Results WBC 9.1 10^3/uL (4.0-10.0) 10/19/22 11:12 RBC 4.61 10^6/uL (4.1-5.3) 10/19/22 11:12 Hgb 13.6 g/dL (11.5-15.3) 10/19/22 11:12 Hct 46.4 % (37.0-47.0) 10/19/22 11:12 MCV 100.7 fl (81-99) H 10/19/22 11:12 MCH 29.5 pg (28.0-34.0) 10/19/22 11:12 MCHC 29.3 g/dL (30.0-36.0) L 10/19/22 11:12 RDW 13.0 % (12.1-15.1) 10/19/22 11:12 Plt Count 209 10^3/cmm (130-400) 10/19/22 11:12 MPV 10.4 fL (7.4-10.4) 10/19/22 11:12 Neut % (Auto) 76.2 % 10/19/22 11:12 Lymph % (Auto) 14.8 % 10/19/22 11:12 Preston % (Auto) 6.3 % 10/19/22 11:12 Eos % (Auto) 2.0 % 10/19/22 11:12 Baso % (Auto) 0.4 % 10/19/22 11:12 Neut # (Auto) 6.89 10^3/uL (1.8-7.7) 10/19/22 11:12 Lymph # (Auto) 1.3 10^3/uL (0.8-4.8) 10/19/22 11:12 Preston # (Auto) 0.6 10^3/uL (0.2-0.9) 10/19/22 11:12 Eos # (Auto) 0.2 10^3/uL (0.0-0.8) 10/19/22 11:12 Baso # (Auto) 0.0 10^3/uL (0.0-0.1) 10/19/22 11:12 Nucleated RBC % (auto) 0 % 10/19/22 11:12 Nucleated RBCs # 0.0 /100WBC 10/19/22 11:12 D-Dimer 0.37 ug/mIFEU (0-0.59) 10/19/22 11:12 Specimen Type Arterial 10/19/22 10:38 Sample Site Brachial, left 10/19/22 10:38 ABG pH 7.32 (7.35-7.45) L 10/19/22 10:38 ABG pCO2 83.0 mmHg (35-45) H* 10/19/22 10:38 ABG pO2 69.3 mmHg (80.0-100.0) L 10/19/22 10:38 ABG HCO3 42.9 mmol/L (22-26) H 10/19/22 10:38 ABG O2 Saturation 96.1 10/19/22 10:38 ABG Base Excess 13.2 mmol/L (-2.0-2.0) H 10/19/22 10:38 Jason Test N/a 10/19/22 10:38 A-a O2 Gradient 4.0 mmHg (5-10) L 10/19/22 10:38 Hematocrit 38.7 % (37-47) 10/19/22 10:38 Hgb O2 Saturation 90.6 % (95-100) L 10/19/22 10:38 Carboxyhemoglobin 5.0 %THgb (0.4-20.1) 10/19/22 10:38 Methemoglobin 0.7 % (0.4-1.5) 10/19/22 10:38 Total Hemoglobin 12.6 g/dL (12-16) 10/19/22 10:38 Sodium 143.0 mmol/L (131-143) 10/19/22 10:38 Potassium 4.4 mmol/L (3.5-5.0) 10/19/22 10:38 Glucose 115.0 mg/dL (70-115) 10/19/22 10:38 Ionized Calcium 1.2 mmol/L (1.1-1.4) 10/19/22 10:38 O2 Delivery Device Nc 10/19/22 10:38 O2 Liters/Min 2.0 % 10/19/22 10:38 FiO2 28.0 % 10/19/22 10:38 Sports Equipment Racker ID [email or web address] 10/19/22 10:38 Sodium 143 mmol/L (136-145) 10/19/22 11:12 Potassium 4.0 mmol/L (3.5-5.1) 10/19/22 11:12 Chloride 99 mmol/L (98-107) 10/19/22 11:12 Carbon Dioxide 39 mmol/L (22-29) H 10/19/22 11:12 Anion Gap 9.0 (5-19) 10/19/22 11:12 BUN 10 mg/dL (6-20) 10/19/22 11:12 Creatinine 0.4 mg/dL (0.5-0.9) L 10/19/22 11:12 GFR Calculation 171.1 mL/min (90-130) H 10/19/22 11:12 Glucose 102 mg/dL (65-115) 10/19/22 11:12 Calculated Osmolality 295 mOsm/kg (285-295) 10/19/22 11:12 Calcium 8.7 mg/dL (8.5-10.5) 10/19/22 11:12 Total Bilirubin 0.2 mg/dL (0.15-1.2) 10/19/22 11:12 AST 12 U/L (0-32) 10/19/22 11:12 ALT 15 U/L (0-33) 10/19/22 11:12 Alkaline Phosphatase 68 U/L (35-105) 10/19/22 11:12 Troponin T Baseline 11 ng/L (0-10) H 10/19/22 11:12 Total Protein 5.6 g/dL (6.6-8.7) L 10/19/22 11:12 Albumin 3.9 g/dL (3.5-5.2) 10/19/22 11:12 Globulin 1.7 g/dL (1.3-4.6) 10/19/22 11:12 Critical Care Time Critical Care Time: Critical Care Time: Yes Total Critical Care Time: 40 Attestation: The high probability of a clinically significant, sudden or life threatening deterioration of the patient's resp system(s) required my full and direct attention, intervention and personal management. The critical care time is as shown. This time is in addition to time spent performing any reported procedures but includes the following: [x] Data and vital sign review and interpretation [x] Patient assessment, examination and intervention [x] Documentation [x] Medication orders and management Discharge Plan Discharge Patient Disposition: Admitted As Inpatient Admit Provider: Nicolas Bernard Clinical Impression: Acute exacerbation of chronic obstructive airways disease, Acute and chronic respiratory failure with hypercapnia Condition: Stable Coding Level of Care Code ED Athletic Scout for [place]
[2022-10-19 10:53] LABS: ABG PH Result 7.32 (7.35-7.45); Arterial Blood Gas Hematocrit 38.7 % (37-47); Base Excess ABG 13.2 mmol/L (-2.0-2.0); Blood Gas Operator Identificat GD; Blood Gas Sample Site Brachial, left; Blood Gas Sample Type Arterial; HCO3 ABG 42.9 mmol/L (22-26); HGB O2 Sat 90.6 % (95-100); Ionized Calcium Level - ABG 1.2 mmol/L (1.1-1.4); Methemoglobin 0.7 % (0.4-1.5); Oxygen Device NC; Oxygen Saturation ABG 96.1; PO2 ABG 69.3 mmHg (80.0-100.0); Potassium Level - ABG 4.4 mmol/L (3.5-5.0); Total Hemoglobin 12.6 g/dL (12-16)
[2022-10-19 11:25] LABS: Basophils % 0.4 %; Eosinophils # 0.2 10^3/uL (0.0-0.8); Hematocrit 46.4 % (37.0-47.0); Hemoglobin 13.6 g/dL (11.5-15.3); Lymphocytes # 1.3 10^3/uL (0.8-4.8); Lymphocytes % 14.8 %; Mean Corpuscular HGB Conc 29.3 g/dL (30.0-36.0); Mean Corpuscular Hemoglobin 29.5 pg (28.0-34.0); Mean Corpuscular Volume 100.7 fl (81-99); Mean Platelet Volume 10.4 fL (7.4-10.4); Monocytes # 0.6 10^3/uL (0.2-0.9); Monocytes % 6.3 %; Neutrophils # 6.89 10^3/uL (1.8-7.7); Neutrophils % 76.2 %; Nucleated Red Blood Cells % 0 %; Platelet Count 209 10^3/cmm (130-400); Red Blood Count 4.61 10^6/uL (4.1-5.3); White Blood Count 9.1 10^3/uL (4.0-10.0)
[2022-10-19] MEDS: dexamethasone 10 mg/mL INJ IVP (11:38)
[2022-10-19 11:44] LABS: Alanine Aminotransferase 15 U/L (0-33); Albumin Level 3.9 g/dL (3.5-5.2); Alkaline Phosphatase 68 U/L (35-105); Aspartate Amino Transferase 12 U/L (0-32); Blood Urea Nitrogen 10 mg/dL (6-20); Calcium 8.7 mg/dL (8.5-10.5); Carbon Dioxide 39 mmol/L (22-29); Chloride 99 mmol/L (98-107); Globulin 1.7 g/dL (1.3-4.6); Glomerular Filtration Rate 171.1 mL/min (90-130); Glucose 102 mg/dL (65-115); Osmolality Calculated 295 mOsm/kg (285-295); Sodium 143 mmol/L (136-145); Total Bilirubin 0.2 mg/dL (0.15-1.2); Total Protein 5.6 g/dL (6.6-8.7)
[2022-10-19 11:47] LABS: Troponin(5th) Baseline 11 ng/L (0-10)
[2022-10-19 11:48] LABS: D Dimer 0.37 ug/mIFEU (0-0.59)
[2022-10-19] MEDS: ipratropium-albuterol 3 mL Neb 6 ML INHALATION (11:57)
[2022-10-19 12:12] LABS: Arterial Blood Gas Hematocrit 38.6 % (37-47); Base Excess ABG 12.2 mmol/L (-2.0-2.0); Blood Gas Allen Test Pos; Blood Gas Sample Site Radial, right; Blood Gas Sample Type Arterial; HCO3 ABG 42.2 mmol/L (22-26); Oxygen Device NC
[2022-10-19 12:14] LABS: ABG PCO2 86.4 mmHg (35-45)
--- NOTE | 2022-10-19 12:21 | ECG_ITS ---
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 Measurements Intervals [place] Rate: 73 P: 84 [place]: 136 QRS: 77 QRSD: 82 T: 62 QT: 431 QTc: 476 Interpretive Statements SINUS RHYTHM POSSIBLE RIGHT VENTRICULAR CONDUCTION DELAY [RSR (QR) IN V1/V2] Compared to ECG 10/04/2022 15:57:56 Short [place] interval no longer present Left-axis deviation no longer present Myocardial infarct finding no longer present Electronically Signed On 10-19-2022 12:09:34 CDT by Jeffery Nguyen M.D. [id number]
[2022-10-19] MEDS: LORazepam 2 mg/mL INJ 1 mL 0.5 MG IVP (12:39)
--- NOTE | 2022-10-19 13:06 | PM.HP ---
Providers/Chief Complaint Admitting Physician: Nicolas Bernard MD Primary Care Provider: Nurys Brooks DO Chief Complaint: SOB History of Present Illness Rebekah Gabriel is a 47 year old female with history of chronic hypoxic respiratory failure on 2 to 3 L of oxygen at baseline, tobacco use disorder, COPD, and anxiety who presents with shortness of breath, found to have acute on chronic hypercapnic respiratory failure requiring non-invasive mechanical ventilation. Patient also treated with Ativan prior to my evaluation. She was very stuporous on evaluation, unable to provide history. Attempted to complete a complete history of medical, surgical, family, and social but patient unable to provide due to medical condition. Collateral information obtained from ED provider and chart review. Per ED provider, patient says her shortness of breath started approximately 2 days ago.? She also endorses a dry nonproductive cough that started 2 days ago as well.? Any exertion makes shortness of breath worse.? Denies any nasal drainage or congestion, chest pain, fevers, heart palpitations, abdominal pain, nausea/vomiting, bladder or bowel symptoms.? Patient states that she tried to quit smoking but recently started smoking 4 to 5 cigarettes daily again over the past week. Associated symptoms: Deny abdominal pain, chest pain, fever(s), nausea, orthopnea, palpitations or vomiting Review of Systems Narrative: A complete review of systems was attempted but patient unable to provide due to stuporous status. Medications/Allergies Home Medications Medication Instructions Recorded Confirmed Last Taken Type albuterol sulfate 90 mcg/actuation 2 inh inhalation Q4H PRN shortness 10/03/21 10/19/22 Unknown Rx aerosol inhaler of breath or wheezing #8.5 grams guaifenesin 600 mg tablet, 600 mg PO DAILY PRN Congestion 09/26/22 10/19/22 Unknown History extended release 12 hr (Mucinex) ipratropium 0.5 mg-albuterol 3 mg 3 ml inhalation Q4H PRN Shortness 09/26/22 10/19/22 Unknown History (2.5 mg base)/3 mL nebulization Of Breath soln propranolol 10 mg tablet 10 mg PO DAILY 09/26/22 10/19/22 10/19/22 History budesonide-formoterol HFA 160 2 puff inhalation BID 10/04/22 10/19/22 10/19/22 History mcg-4.5 mcg/actuation aerosol inhaler (Symbicort) alprazolam 0.5 mg tablet (Xanax) 0.5 mg PO BID PRN anxiety #14 tabs 10/06/22 10/19/22 Unknown Rx budesonide-formoterol HFA 160 1 inh inhalation BID #10.2 grams 10/06/22 10/19/22 10/19/22 Rx mcg-4.5 mcg/actuation aerosol inhaler (Symbicort) tiotropium bromide 2.5 2 inh inhalation DAILY #4 grams 10/06/22 10/19/22 10/19/22 Rx mcg/actuation mist for inhalation (Spiriva Respimat) Allergies Allergy/AdvReac Type Severity Reaction Status Date / Time levofloxacin [From Levaquin] Allergy Unknown Verified 09/26/22 09:46 Penicillins Allergy Unknown Verified 09/26/22 09:46 Sulfa (Sulfonamide Allergy Unknown Verified 09/26/22 09:46 Antibiotics) PFSH Acute PFSH: Medical History (Updated 10/19/22 @ 21:38 by Nicolas Bernard MD) Acute exacerbation of chronic obstructive airways disease Acute exacerbation of chronic obstructive airways disease COPD (chronic obstructive pulmonary disease) COPD exacerbation Nicotine dependence Respiratory failure with hypoxia and hypercapnia Social History Smoking and tobacco status: current every day smoker Vitals/I&O/Wt Last Vital Signs Temp 98.1 F 10/19/22 10:11 Pulse 70 10/19/22 11:58 Resp 17 10/19/22 11:58 BP 111/79 10/19/22 10:32 Pulse Ox 97 10/19/22 11:58 O2 Del Method Nasal Cannula 10/19/22 11:58 O2 Flow Rate 2 10/19/22 11:58 FiO2 35 10/19/22 11:05 Weight last 48 hrs Weight 65.771 kg Physical Exam Narrative: General: Patient is in a stuporous state on BIPAP. Head: Normocephalic. Atraumatic. Neck: No JVD. Cardiovascular: RRR. No gallops. No murmurs. Lungs: Poor air movement. DIffuse wheezing. No rales or crackles. Using accessory muscles. On BIPAP. Skin: No jaundice. No rashes. Abdomen: Normal bowel sounds, abdomen soft and nontender. Genito Urinary: Genital exam not performed since complaints not related. Rectal: Rectal exam not performed since no symptoms indicated blood loss. Extremities: No cyanosis or clubbing. Musculoskeletal: Normal muscle mass. Neurological: No myoclonus. Moves all 4 extremities. Data 10/19/22 11:12 10/19/22 11:12 A&P Assessment and plan (1) Acute and chronic respiratory failure with hypercapnia: Secondary to acute COPD exacerbation BiPAP as tolerated Start steroids Breathing treatments Supportive care (2) Acute exacerbation of chronic obstructive airways disease: As above (3) Nicotine dependence: Patient would benefit from smoking cessation (4) Acute metabolic encephalopathy: Secondary to CO2 retention Continue BIPAP Plan Code: Full Attestations Medical Necessity Statement*: Patient presents with respiratory failure requiring non-invasive mechanical ventilation with expected hospitalization not to cross 2 midnights. Coding Level of Care Code Acute Code for Chg Fwd Diagnoses Acute and chronic respiratory failure with hypercapnia J96.22 Acute exacerbation of chronic obstructive airways disease J44.1 Nicotine dependence F17.200 Acute metabolic encephalopathy G93.41
[2022-10-19 13:32] LABS: Influenza A by IFA negative (Negative); Influenza B by IFA negative (Negative)
[2022-10-19 14:02] LABS: SARS Covid-2 Antigen negative (Negative)
[2022-10-19 14:05] LABS: Troponin 5 2HR 7.99 ng/L (0-10)
--- NOTE | 2022-10-19 14:57 | PC.NURSE ---
Patient arrived on floor via gourney from ER. Patient is slow to answer and answers in very few words. Nurse hooked her up to telemetry and gave her a sandwich and some water. When I asked what I could get for her she responded food and when I asked her what she wanted to drink she said liquid . Unable to get a good healthy history from her and the moment. Patient is still sleepy from dose of ativan given in the ER.
--- NOTE | 2022-10-19 15:07 | ECG_ITS ---
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 Measurements Intervals [place] Rate: 82 P: 83 [place]: 131 QRS: 77 QRSD: 86 T: 64 QT: 395 QTc: 464 Interpretive Statements SINUS RHYTHM POSSIBLE RIGHT VENTRICULAR CONDUCTION DELAY [RSR (QR) IN V1/V2] Compared to ECG 10/19/2022 10:27:42 No significant changes Electronically Signed On 10-19-2022 21:05:23 CDT by Jeffery Nguyen M.D. [id number]
[2022-10-19 15:09] LABS: Troponin 5 2HR Delta -3.01 ABS# (0-10)
--- NOTE | 2022-10-19 15:11 | PC.NURSE ---
Patient's stated complaint in the ER was shortness of breath x 2 days but now in the room she is reporting chest pain 50 to 60 on a scale of 0-10. She asked nurse what are all these cardiac issues I've been having .
[2022-10-19] MEDS: ipratropium-albuterol 3 mL Neb INHALATION ×3 (15:57→23:16)
[2022-10-19] MEDS: enoxaparin 40 mg/0.4 mL Syringe SUBCUT (15:58)
[2022-10-19 16:51] LABS: Procalcitonin 0.02 ng/mL (0-0.5)
[2022-10-19] MEDS: budesonide 0.5 mg/2 mL Neb INHALATION (20:28)
[2022-10-20] VITALS (17 sets, daily range): BP systolic 98–125; BP diastolic 72–79; PULSE 73–108; RESP 16–31; TEMP 36.7–36.8; O2SAT 97–99
[2022-10-20] MEDS: ipratropium-albuterol 3 mL Neb INHALATION ×5 (04:05→19:55)
[2022-10-20] MEDS: budesonide 0.5 mg/2 mL Neb INHALATION ×2 (07:59→19:55)
[2022-10-20] MEDS: ALPRAZolam 0.5 mg Tablet PO (09:07)
[2022-10-20] MEDS: propranolol 20 mg Tablet 10 MG PO (09:07)
[2022-10-20] MEDS: predniSONE 20 mg Tablet 40 MG PO (12:17)
[2022-10-20] MEDS: acetaminophen 325 mg Tablet 650 MG PO (16:49)
--- NOTE | 2022-10-20 17:11 | PM.DCS ---
Discharge Providers Date of Admission: 10/19/22 12:24 Date of Discharge: October 20, 2022 Attending Provider at Admission: Nicolas Bernard MD Attending Provider at Discharge: Nicolas Bernard MD Primary Care Provider: Nurys Brooks DO Diagnoses at Discharge Discharge Diagnosis (1) Acute and chronic respiratory failure with hypercapnia: Status: Resolved (2) Acute exacerbation of chronic obstructive airways disease: Status: Resolved (3) Nicotine dependence: Status: Inactive (4) Acute metabolic encephalopathy: Status: Resolved Reason for Visit Reason for Visit: SOB Hospital Course Hospital Course Rebekah Gabriel is a 47 year old female with history of chronic hypoxic respiratory failure on 2 to 3 L of oxygen at baseline, tobacco use disorder, COPD, and anxiety who presents with shortness of breath, found to have acute on chronic hypercapnic respiratory failure requiring non-invasive mechanical ventilation secondary to acute COPD exacerbation complicated by acute metabolic encephalopathy secondary to CO2 retention. Patient treated with steroids, breathing treatments, and supportive care. Patient recovered quicker than expected. Oxygen requirements returned to baseline. She was rotated to oral prednisone. Smoking cessation counseling was performed for 5 minutes. Patient adamant about quit smoking at this time. Reports she previously stopped for two weeks but started again due to relationship stress. Offered pharmacological options and patient declined. Patient discharged to home in stable condition. Physical Exam Narrative: General: Patient is awake and alert. Pleasant. Head:? Normocephalic. Atraumatic. Neck: No JVD. Cardiovascular: RRR. No gallops. No murmurs. Lungs: Adequate air movement. Faint end expiratory wheezing is present. On nasal canula. Skin: No jaundice. No rashes. Abdomen: Normal bowel sounds, abdomen soft and nontender. Genito Urinary: Genital exam not performed since complaints not related. Rectal: Rectal exam not performed since no symptoms indicated blood loss. Extremities: No cyanosis or clubbing. Musculoskeletal: Normal muscle mass. Neurological:? No myoclonus.? Moves all 4 extremities. Discharge Data Studies Completed and Pending Completed Studies During Hospitalization Category Date Time Status XR chest 1V portable [id number] Stat Exams 10/19/22 10:20 Completed Radiology Impressions Chest X-Ray 10/19/22 10:20 IMPRESSION: There is chronic air trapping and granulomatous appearance of the parenchyma and hemithoraces similar overall.No interval acute cardiopulmonary changes are appreciated. Laboratory Results WBC 9.1 10^3/uL (4.0-10.0) 10/19/22 11:12 RBC 4.61 10^6/uL (4.1-5.3) 10/19/22 11:12 Hgb 13.6 g/dL (11.5-15.3) 10/19/22 11:12 Hct 46.4 % (37.0-47.0) 10/19/22 11:12 MCV 100.7 fl (81-99) H 10/19/22 11:12 MCH 29.5 pg (28.0-34.0) 10/19/22 11:12 MCHC 29.3 g/dL (30.0-36.0) L 10/19/22 11:12 RDW 13.0 % (12.1-15.1) 10/19/22 11:12 Plt Count 209 10^3/cmm (130-400) 10/19/22 11:12 MPV 10.4 fL (7.4-10.4) 10/19/22 11:12 Neut % (Auto) 76.2 % 10/19/22 11:12 Lymph % (Auto) 14.8 % 10/19/22 11:12 [place] % (Auto) 6.3 % 10/19/22 11:12 Eos % (Auto) 2.0 % 10/19/22 11:12 Baso % (Auto) 0.4 % 10/19/22 11:12 Neut # (Auto) 6.89 10^3/uL (1.8-7.7) 10/19/22 11:12 Lymph # (Auto) 1.3 10^3/uL (0.8-4.8) 10/19/22 11:12 [place] # (Auto) 0.6 10^3/uL (0.2-0.9) 10/19/22 11:12 Eos # (Auto) 0.2 10^3/uL (0.0-0.8) 10/19/22 11:12 Baso # (Auto) 0.0 10^3/uL (0.0-0.1) 10/19/22 11:12 Nucleated RBC % (auto) 0 % 10/19/22 11:12 Nucleated RBCs # 0.0 /100WBC 10/19/22 11:12 D-Dimer 0.37 ug/mIFEU (0-0.59) 10/19/22 11:12 Specimen Type Arterial 10/19/22 10:38 Sample Site Brachial, left 10/19/22 10:38 ABG pH 7.32 (7.35-7.45) L 10/19/22 10:38 ABG pCO2 83.0 mmHg (35-45) H* 10/19/22 10:38 ABG pO2 69.3 mmHg (80.0-100.0) L 10/19/22 10:38 ABG HCO3 42.9 mmol/L (22-26) H 10/19/22 10:38 ABG O2 Saturation 96.1 10/19/22 10:38 ABG Base Excess 13.2 mmol/L (-2.0-2.0) H 10/19/22 10:38 Jason Test N/a 10/19/22 10:38 A-a O2 Gradient 4.0 mmHg (5-10) L 10/19/22 10:38 Hematocrit 38.7 % (37-47) 10/19/22 10:38 Hgb O2 Saturation 90.6 % (95-100) L 10/19/22 10:38 Carboxyhemoglobin 5.0 %THgb (0.4-20.1) 10/19/22 10:38 Methemoglobin 0.7 % (0.4-1.5) 10/19/22 10:38 Total Hemoglobin 12.6 g/dL (12-16) 10/19/22 10:38 Sodium 143.0 mmol/L (131-143) 10/19/22 10:38 Potassium 4.4 mmol/L (3.5-5.0) 10/19/22 10:38 Glucose 115.0 mg/dL (70-115) 10/19/22 10:38 Ionized Calcium 1.2 mmol/L (1.1-1.4) 10/19/22 10:38 O2 Delivery Device Nc 10/19/22 10:38 O2 Liters/Min 2.0 % 10/19/22 10:38 FiO2 28.0 % 10/19/22 10:38 Traffic Maintenance Supervisor ID [id number] 10/19/22 10:38 Sodium 143 mmol/L (136-145) 10/19/22 11:12 Potassium 4.0 mmol/L (3.5-5.1) 10/19/22 11:12 Chloride 99 mmol/L (98-107) 10/19/22 11:12 Carbon Dioxide 39 mmol/L (22-29) H 10/19/22 11:12 Anion Gap 9.0 (5-19) 10/19/22 11:12 BUN 10 mg/dL (6-20) 10/19/22 11:12 Creatinine 0.4 mg/dL (0.5-0.9) L 10/19/22 11:12 GFR Calculation 171.1 mL/min (90-130) H 10/19/22 11:12 Glucose 102 mg/dL (65-115) 10/19/22 11:12 Calculated Osmolality 295 mOsm/kg (285-295) 10/19/22 11:12 Calcium 8.7 mg/dL (8.5-10.5) 10/19/22 11:12 Total Bilirubin 0.2 mg/dL (0.15-1.2) 10/19/22 11:12 AST 12 U/L (0-32) 10/19/22 11:12 ALT 15 U/L (0-33) 10/19/22 11:12 Alkaline Phosphatase 68 U/L (35-105) 10/19/22 11:12 Troponin T Baseline 11 ng/L (0-10) H 10/19/22 11:12 Troponin T 120 Minute 7.99 ng/L (0-10) 10/19/22 13:25 Delta Troponin T -3.01 ABS# (0-10) L 10/19/22 13:25 Troponin T Hi Sens 6Hr 6.00 ng/L (0-10) 10/19/22 17:32 Troponin T Hi Sens 6Hr Delta -5.00 ng/L (0-12) L 10/19/22 17:32 C-Reactive Protein 3.0 mg/L (0.0-4.9) 10/19/22 13:25 Total Protein 5.6 g/dL (6.6-8.7) L 10/19/22 11:12 Albumin 3.9 g/dL (3.5-5.2) 10/19/22 11:12 Globulin 1.7 g/dL (1.3-4.6) 10/19/22 11:12 Procalcitonin 0.02 ng/mL (0-0.5) 10/19/22 13:25 Influenza Type A Ag negative (Negative) 10/19/22 12:24 Influenza Type B Ag negative (Negative) 10/19/22 12:24 SARS-CoV-2 Ag (Rapid) negative (Negative) 10/19/22 12:24 Procedures Performed None Vitals Last Vital Signs Temp 98.2 F 10/20/22 07:05 Pulse 86 10/20/22 15:31 Resp 16 10/20/22 15:31 BP 120/77 10/20/22 15:31 Pulse Ox 98 10/20/22 15:31 O2 Del Method Nasal Cannula 10/20/22 15:31 O2 Flow Rate 2 10/20/22 15:30 FiO2 35 10/20/22 10:59 Discharge Plan Discharge Patient Disposition: Home Condition: Stable Prescriptions: New prednisone 20 mg Tablet 40 mg PO DAILY 10 Days Qty: 20 0RF Continued albuterol sulfate 90 mcg/actuation HFA aerosol inhaler 2 inh inhalation Q4H PRN (Reason: shortness of breath or wheezing) Qty: 8.5 0RF ipratropium-albuterol 0.5 mg-3 mg(2.5 mg base)/3 mL Solution For Nebulization 3 ml INHALATION Q4H PRN (Reason: Shortness Of Breath) propranolol 10 mg Tablet 10 mg PO DAILY guaifenesin [Mucinex] 600 mg Tablet Extended Release 12hr 600 mg PO DAILY PRN (Reason: Congestion) budesonide-formoterol [Symbicort] 160-4.5 mcg/actuation Hfa Aerosol Inhaler 2 puff INHALATION BID budesonide-formoterol [Symbicort] 160-4.5 mcg/actuation HFA aerosol inhaler 1 inh inhalation BID Qty: 10.2 4RF Spiriva Respimat 2.5 mcg/actuation mist 2 inh inhalation DAILY Qty: 4 5RF alprazolam [Xanax] 0.5 mg tablet 0.5 mg PO BID PRN (Reason: anxiety) Qty: 14 0RF Discharge Orders: Discharge Order (Routine); Ordered 10/20/22 Ordered By: Nicolas Bernard Referrals: Nurys Brooks DO [Primary Care Provider] - 1-3 days (Please call for an follow-up appointment with Nurys Brooks in 1 to 3 days. ) Discharge Diet: Advance as tolerated and Usual diet Discharge Activity: Resume usual activity and Increase activity as tolerated Patient Instructions: Prednisone (By mouth) (predniSONE Intensol, Prednicot, Deltasone, Maxi), How to Stop Smoking (DC), Encephalopathy (DC), Acute Respiratory Failure (GEN), COPD Stoplight, Opioid Safety Plan of Treatment: 1. Stop smoking. 2. Take medications as prescribed. 3. Follow up with primary care physician. 4. Do not smoke around oxygen devices. Discharge Attestations Time Spent in Discharge Care*: greater than 30 min Time Spent in Smoking Cessation: 3 to 10 minutes Quality Metrics Clinical Quality Measures [ No reported AMI, CVA or VTE this stay] Coding Level of Care Code Acute Code for Chg Fwd Diagnoses Acute and chronic respiratory failure with hypercapnia J96.22 Acute exacerbation of chronic obstructive airways disease J44.1 Nicotine dependence F17.200 Acute metabolic encephalopathy G93.41
== END 2022-10-20 20:55 | disposition home or self-care (01) ==
LOC: ER 12:35 → CSU 12:42
PROVIDERS: Physician Assistant; Admitting Provider Internal Medicine; Emergency Provider Emergency Medicine; PCP Family Medicine; Visit Provider Internal Medicine
DX: J44.1 Chronic obstructive pulmonary disease with (acute) exacerbation (principal); Z99.81 Dependence on supplemental oxygen; F17.210 Nicotine dependence, cigarettes, uncomplicated; J96.22 Acute and chronic respiratory failure with hypercapnia; G93.41 Metabolic encephalopathy; Z79.51 Long term (current) use of inhaled steroids
CPT/HCPCS: 36415; 36600; 71045; 80051; 80053; 82330; 82803; 82805; 84145; 84484; 85025; 85378; 86140; 87426; 87804; 93005; 94640; 94660; 94664; 96372; 96374; 96375; 96376; 99285; G0378; J1100; J1650; J2060; J7512; J7626

== ENCOUNTER → 2022-11-01 13:30 | Outpatient (BNVA) | payer MEDICAID, SELFPAY | PROVIDERS: PCP Family Medicine; Visit Provider Internal Medicine Pulmonary Disease | DX: J44.9 Chronic obstructive pulmonary disease, unspecified (principal); F17.200 Nicotine dependence, unspecified, uncomplicated | CPT/HCPCS: 36415; 82785; 85025; 86003; 99204 ==

== ENCOUNTER 2022-11-20 06:10 | Emergency (ER) | payer MEDICAID, SELFPAY ==
[2022-11-20 06:11] VITALS: BP 123/80; PULSE 85; RESP 22; TEMP 36.7; O2SAT 96; BMI 24.0
--- NOTE | 2022-11-20 06:18 | XRR_ITS ---
PROCEDURE INFORMATION: Exam: XR Chest Exam date and time: 11/20/2022 6:25 AM Age: 47 years old Clinical indication: Shortness of breath; Additional info: SOB TECHNIQUE: Imaging protocol: Radiologic exam of the chest. Views: 1 view. Total images: 359 COMPARISON: CR (CHEST, ) 10/19/2022 11:13 AM FINDINGS: Lungs: Benign granulomatous disease of the lung is noted. Pleural spaces: Unremarkable. No pleural effusion. No pneumothorax. Heart/Mediastinum: Unremarkable. No cardiomegaly. Bones/joints: Old left rib fractures are evident. XR/XR chest 1V portable [id number] IMPRESSION: No acute cardiopulmonary process.
--- NOTE | 2022-11-20 06:23 | ED_ITS ---
HPI - SOB/Dyspnea General: Chief Complaint: Shortness of Breath/Dyspnea Stated Complaint: RESP. DISTRESS Time Seen by Provider: 11/20/22 06:12 Source: patient and EMS Mode of arrival: EMS Limitations: no limitations History of Present Illness: HPI Narrative: 47-year-old female has extensive history of COPD she states that she had a mild headache this morning when she woke up she states that she is also having shortness of breath. She does wear BiPAP at night she is on 3 L oxygen at all times. Patient here is 96% on her 3 L she states she felt like she had some increased wheezing she had a slight cough over the last 2 days patient denies any fever denies any chest pain she did receive a breathing treatment and Solu- Medrol in route and is feeling improved. Associated symptoms: Deny abdominal pain, chest pain, fever(s), nausea or vomiting Review of Systems Const: Denies: fever(s) or chills Eyes: Denies: eye discomfort ENMT: Denies: throat pain or dental pain Card: Denies: chest pain Resp: Reports: dyspnea and wheezing GI: Denies: abdominal pain, nausea, vomiting or diarrhea Musc: Denies: neck pain or back pain Skin/Breast: Denies: rash Neuro: Reports: headache(s) PFS ED PFSH: Medical History Acute exacerbation of chronic obstructive airways disease Acute exacerbation of chronic obstructive airways disease COPD (chronic obstructive pulmonary disease) COPD exacerbation Nicotine dependence Respiratory failure with hypoxia and hypercapnia Social History Smoking and tobacco status: current every day smoker Physical Exam Const: COMMON NORMALS: no acute distress, patient oriented x3 and healthy appearing HENMT: COMMON NORMALS: normocephalic and atraumatic HEAD & SCALP: normocephalic and atraumatic Eye: COMMON NORMALS: conjunctivae normal CONJUNCTIVA: Yes conjunctivae normal Neck/C-Spine: COMMON NORMALS: full ROM and supple Chest: COMMONS NORMALS: normal inspection of the chest and normal palpation of entire chest wall Resp: COMMON NORMALS: normal respiratory effort, No retractions and No use of accessory muscles AUSCULTATION: wheezes Cardio: COMMON NORMALS: regular rate, regular rhythm and No murmurs present (Cardio) RATE: regular rate RHYTHM: regular rhythm GI: COMMON NORMALS: Normal to inspection, nondistended, normoactive bowel sounds present, Soft to palpation, non-tender and no masses PALPATION: Yes Soft to palpation Extremity: COMMON NORMALS: normal to inspection and full ROM Neuro: COMMON NORMALS: patient oriented x3, moves all extremities and no focal motor deficits Psych: COMMON NORMALS: mental status grossly normal, Normal thought process present and cooperative THOUGHT PROCESS: Normal thought process present Skin: COMMON NORMALS: no rashes or lesions noted and no wounds GENERAL SKIN EXAM: no rashes or lesions noted Course Vital Signs: Vital signs: Vital Signs Temperature 98.1 F 11/20/22 06:11 Pulse Rate 103 H 11/20/22 08:48 Respiratory Rate 18 11/20/22 08:48 Blood Pressure 113/72 11/20/22 08:48 Pulse Oximetry 95 11/20/22 08:48 Oxygen Delivery Me thod Nasal Cannula 11/20/22 08:48 Oxygen Flow Rate 3 11/20/22 08:48 MDM - SOB/Dyspnea Medical Decision Making Patient presents here with COPD exacerbation she feels much improved here she is at her baseline on oxygen she does have chronic hypercapnia she is to wear her BiPAP at home she is wanting to go home I feel she is stable for discharge return if worsening. No signs of pneumonia. Medical Records I reviewed the patient's medical records. Lab Data I reviewed the patient's lab results. 11/20/22 06:55 11/20/22 06:55 Labs/Radiology: Radiology Impressions Chest X-Ray 11/20/22 06:18 IMPRESSION: No acute cardiopulmonary process. Laboratory Results WBC 7.5 10^3/uL (4.0-10.0) 11/20/22 06:55 RBC 4.53 10^6/uL (4.1-5.3) 11/20/22 06:55 Hgb 13.3 g/dL (11.5-15.3) 11/20/22 06:55 Hct 43.6 % (37.0-47.0) 11/20/22 06:55 MCV 96.2 fl (81-99) 11/20/22 06:55 MCH 29.4 pg (28.0-34.0) 11/20/22 06:55 MCHC 30.5 g/dL (30.0-36.0) 11/20/22 06:55 RDW 12.5 % (12.1-15.1) 11/20/22 06:55 Plt Count 219 10^3/cmm (130-400) 11/20/22 06:55 MPV 9.7 fL (7.4-10.4) 11/20/22 06:55 Neut % (Auto) 74.6 % 11/20/22 06:55 Lymph % (Auto) 17.5 % 11/20/22 06:55 [place] % (Auto) 4.8 % 11/20/22 06:55 Eos % (Auto) 2.0 % 11/20/22 06:55 Baso % (Auto) 0.8 % 11/20/22 06:55 Neut # (Auto) 5.60 10^3/uL (1.8-7.7) 11/20/22 06:55 Lymph # (Auto) 1.3 10^3/uL (0.8-4.8) 11/20/22 06:55 [place] # (Auto) 0.4 10^3/uL (0.2-0.9) 11/20/22 06:55 Eos # (Auto) 0.2 10^3/uL (0.0-0.8) 11/20/22 06:55 Baso # (Auto) 0.1 10^3/uL (0.0-0.1) 11/20/22 06:55 Nucleated RBC % (auto) 0 % 11/20/22 06:55 Nucleated RBCs # 0.0 /100WBC 11/20/22 06:55 Specimen Type Arterial 11/20/22 06:45 Sample Site Brachial, left 11/20/22 06:45 ABG pH 7.29 (7.35-7.45) L 11/20/22 06:45 ABG pCO2 77.5 mmHg (35-45) H* 11/20/22 06:45 ABG pO2 70.0 mmHg (80.0-100.0) L 11/20/22 06:45 ABG HCO3 37.1 mmol/L (22-26) H 11/20/22 06:45 ABG Base Excess 7.7 mmol/L (-2.0-2.0) H 11/20/22 06:45 Jason Test N/a 11/20/22 06:45 Hematocrit 39.1 % (37-47) 11/20/22 06:45 Hgb O2 Saturation 88.5 % (95-100) L 11/20/22 06:45 Carboxyhemoglobin 5.8 %THgb (0.4-20.1) 11/20/22 06:45 Methemoglobin 0.9 % (0.4-1.5) 11/20/22 06:45 Total Hemoglobin 12.8 g/dL (12-16) 11/20/22 06:45 O2 Delivery Device Nc 11/20/22 06:45 O2 Liters/Min 3.0 % 11/20/22 06:45 FiO2 32.0 % 11/20/22 06:45 Financial Service Professional ID Amh 11/20/22 06:45 Sodium 137 mmol/L (136-145) 11/20/22 06:55 Potassium 4.1 mmol/L (3.5-5.1) 11/20/22 06:55 Chloride 99 mmol/L (98-107) 11/20/22 06:55 Carbon Dioxide 30 mmol/L (22-29) H 11/20/22 06:55 Anion Gap 12.1 (5-19) 11/20/22 06:55 BUN 9 mg/dL (6-20) 11/20/22 06:55 Creatinine 0.5 mg/dL (0.5-0.9) 11/20/22 06:55 GFR Calculation 132.2 mL/min (90-130) H 11/20/22 06:55 Glucose 103 mg/dL (65-115) 11/20/22 06:55 Calculated Osmolality 283 mOsm/kg (285-295) L 11/20/22 06:55 Calcium 8.7 mg/dL (8.5-10.5) 11/20/22 06:55 Total Bilirubin 0.2 mg/dL (0.15-1.2) 11/20/22 06:55 AST 18 U/L (0-32) 11/20/22 06:55 ALT 18 U/L (0-33) 11/20/22 06:55 Alkaline Phosphatase 67 U/L (35-105) 11/20/22 06:55 NT-Pro-B Natriuret Pep 61 pg/mL (0-125) 11/20/22 06:55 Total Protein 6.3 g/dL (6.6-8.7) L 11/20/22 06:55 Albumin 3.8 g/dL (3.5-5.2) 11/20/22 06:55 Globulin 2.5 g/dL (1.3-4.6) 11/20/22 06:55 EKG Data EKG 1: I personally reviewed and interpreted this EKG as follows: EKG Interpretation Date: 11/20/22 EKG interpretation time: :22 Interpretation: nsr hr [address] or t wave abnormalities qrs 80 qtc 417 Discharge Plan Discharge Patient Disposition: Home Clinical Impression: Acute exacerbation of chronic obstructive airways disease Condition: Stable Prescriptions: New prednisone 50 mg tablet 50 mg PO DAILY Qty: 5 0RF No Action prednisone 20 mg tablet 20 mg PO DAILY alprazolam [Xanax] 0.5 mg tablet 0.5 mg PO BID PRN (Reason: anxiety) Qty: 14 0RF montelukast [Singulair] 10 mg tablet 10 mg PO DAILY Qty: 30 3RF levalbuterol tartrate [Xopenex HFA] 45 mcg/actuation HFA aerosol inhaler 1 puff inhalation Q6H Qty: 15 5RF levalbuterol HCl 0.63 mg/3 mL solution for nebulization 0.63 mg inhalation TID Qty: 75 3RF ipratropium-albuterol 0.5 mg-3 mg(2.5 mg base)/3 mL Solution For Nebulization 3 ml INHALATION Q4H PRN (Reason: Shortness Of Breath) propranolol 10 mg Tablet 10 mg PO DAILY guaifenesin [Mucinex] 600 mg Tablet Extended Release 12hr 600 mg PO DAILY PRN (Reason: Congestion) budesonide-formoterol [Symbicort] 160-4.5 mcg/actuation Hfa Aerosol Inhaler 2 puff INHALATION BID budesonide-formoterol [Symbicort] 160-4.5 mcg/actuation HFA aerosol inhaler 1 inh inhalation BID Qty: 10.2 4RF Spiriva Respimat 2.5 mcg/actuation mist 2 inh inhalation DAILY Qty: 4 5RF Discharge Orders: Discharge ED (Routine); Ordered 07/05/23 Ordered By: Jefe Sanchez Referrals: Avi Samayoa MD [Physician] - 1-3 days Discharge Diet: Advance as tolerated Discharge Activity: Resume usual activity Patient Instructions: COPD (Chronic Obstructive Pulmonary Disease) (ED) Coding Level of Care Code ED Dental Cream Maker for Juan M Vegas
[2022-11-20 06:25] VITALS: BP 123/80; PULSE 88; RESP 24; O2SAT 96
[2022-11-20] MEDS: ipratropium 0.5 mg/2.5 mL Neb INHALATION (06:45)
[2022-11-20] MEDS: albuterol 2.5 mg/3 mL Neb INHALATION (06:45)
[2022-11-20 06:53] VITALS: PULSE 88; RESP 24; O2SAT 100
[2022-11-20 06:56] LABS: ABG PH Result 7.29 (7.35-7.45); Arterial Blood Gas Hematocrit 39.1 % (37-47); Base Excess ABG 7.7 mmol/L (-2.0-2.0); Blood Gas Operator Identificat AMH; Blood Gas Sample Site Brachial, left; Blood Gas Sample Type Arterial; Carboxyhemoglobin 5.8 %THgb (0.4-20.1); HCO3 ABG 37.1 mmol/L (22-26); HGB O2 Sat 88.5 % (95-100); Methemoglobin 0.9 % (0.4-1.5); Oxygen Device NC; Total Hemoglobin 12.8 g/dL (12-16)
[2022-11-20 06:57] LABS: ABG PCO2 77.5 mmHg (35-45)
[2022-11-20 07:06] LABS: Basophils # 0.1 10^3/uL (0.0-0.1); Basophils % 0.8 %; Eosinophils # 0.2 10^3/uL (0.0-0.8); Hematocrit 43.6 % (37.0-47.0); Hemoglobin 13.3 g/dL (11.5-15.3); Lymphocytes # 1.3 10^3/uL (0.8-4.8); Lymphocytes % 17.5 %; Mean Corpuscular HGB Conc 30.5 g/dL (30.0-36.0); Mean Corpuscular Hemoglobin 29.4 pg (28.0-34.0); Mean Corpuscular Volume 96.2 fl (81-99); Mean Platelet Volume 9.7 fL (7.4-10.4); Monocytes # 0.4 10^3/uL (0.2-0.9); Monocytes % 4.8 %; Neutrophils % 74.6 %; Nucleated Red Blood Cells % 0 %; Platelet Count 219 10^3/cmm (130-400); Red Blood Count 4.53 10^6/uL (4.1-5.3); Red Cell Distribution Width 12.5 % (12.1-15.1); White Blood Count 7.5 10^3/uL (4.0-10.0)
[2022-11-20 07:16] VITALS: BP 119/76; PULSE 87; RESP 18; O2SAT 94
[2022-11-20 07:35] LABS: Alanine Aminotransferase 18 U/L (0-33); Albumin Level 3.8 g/dL (3.5-5.2); Alkaline Phosphatase 67 U/L (35-105); Aspartate Amino Transferase 18 U/L (0-32); Blood Urea Nitrogen 9 mg/dL (6-20); Calcium 8.7 mg/dL (8.5-10.5); Carbon Dioxide 30 mmol/L (22-29); Chloride 99 mmol/L (98-107); Globulin 2.5 g/dL (1.3-4.6); Glomerular Filtration Rate 132.2 mL/min (90-130); Glucose 103 mg/dL (65-115); NT Pro B Type Natriuretic Pept 61 pg/mL (0-125); Osmolality Calculated 283 mOsm/kg (285-295); Sodium 137 mmol/L (136-145); Total Bilirubin 0.2 mg/dL (0.15-1.2); Total Protein 6.3 g/dL (6.6-8.7)
[2022-11-20 07:41] LABS: Anion Gap 12.1 (5-19); Potassium 4.1 mmol/L (3.5-5.1)
--- NOTE | 2022-11-20 07:44 | ECG_ITS ---
[facility] Test Date: 2022-11-20 Pat Name: Rebekah Gabriel Department: Room: Gender: Female Social Services Assistant: : 1975 Requested By: Jefe Sanchez Order Number: [id number] Chandana MD: Connie Lopez M.D. Measurements Intervals [place] Rate: 85 P: 85 [place]: 135 QRS: 86 QRSD: 80 T: 69 QT: 375 QTc: 447 Interpretive Statements SINUS RHYTHM POSSIBLE RIGHT VENTRICULAR CONDUCTION DELAY [RSR (QR) IN V1/V2] POSSIBLE ANTERIOR MYOCARDIAL INFARCTION , OF INDETERMINATE AGE [30 ms Q WAVE IN V3/V4, OR R < 0.2 mV IN V4] Compared to ECG 10/19/2022 15:07:12 Myocardial infarct finding now present Electronically Signed On 11-20-2022 9:52:01 CDT by Connie Lopez M.D. [id number]
[2022-11-20 08:48] VITALS: BP 113/72; PULSE 103; RESP 18; O2SAT 95
== END 2022-11-20 08:49 | disposition home or self-care (01) ==
PROVIDERS: Emergency Provider Emergency Medicine; PCP Family Medicine
DX: J44.1 Chronic obstructive pulmonary disease with (acute) exacerbation (principal); F17.210 Nicotine dependence, cigarettes, uncomplicated
CPT/HCPCS: 36415; 36600; 71045; 80053; 82805; 83880; 85025; 93005; 94640; 99285; J7613; J7644

== ENCOUNTER 2022-12-06 22:16 | Emergency (ER) | payer MEDICAID, SELFPAY ==
[2022-12-06 22:18] VITALS: BP 133/83; PULSE 111; RESP 19; TEMP 36.5; O2SAT 95; BMI 24.0
--- NOTE | 2022-12-06 22:36 | W.ED.SOB ---
HPI - SOB/Dyspnea General: Chief Complaint: Shortness of Breath/Dyspnea Stated Complaint: Resp Distress Time Seen by Provider: 12/06/22 22:36 History of Present Illness: HPI Narrative: 47-year-old female comes in today with increased shortness of breath. Patient reports that she had not used her BiPAP all day due to falling asleep while resting outside. Patient awoke she felt short of breath and started to have some anxiety so she paged 911. Patient reports feeling really anxious and believes she is having anxiety attack. Patient appears nontoxic. Patient does appear in moderate respiratory distress. Patient has a history of severe COPD and uses a BiPAP machine at home. Associated symptoms: Deny chest pain, fever(s), nausea or vomiting Review of Systems General: Reports: 10 or more systems reviewed and unremarkable except in HPI and below Const: Denies: fever(s) Eyes: Denies: change in vision ENMT: Denies: throat pain Card: Denies: chest pain Resp: Reports: dyspnea GI: Denies: nausea or vomiting : Denies: difficulty voiding Musc: Denies: neck pain or back pain Psych: Reports: anxiety PFSH ED PFSH: Medical History Acute exacerbation of chronic obstructive airways disease Acute exacerbation of chronic obstructive airways disease COPD (chronic obstructive pulmonary disease) COPD exacerbation Nicotine dependence Respiratory failure with hypoxia and hypercapnia Social History Smoking and tobacco status: current every day smoker Physical Exam Const: COMMON NORMALS: alert HENMT: COMMON NORMALS: normocephalic HEAD & SCALP: normocephalic Neck/C-Spine: COMMON NORMALS: full ROM Resp: EFFORT & INSPECTION: Yes able to speak in complete sentences and Yes uses accessory muscles AUSCULTATION: no rhonchi and no wheezes Cardio: COMMON NORMALS: regular rate and regular rhythm RATE: regular rate RHYTHM: regular rhythm GI: COMMON NORMALS: non-tender Extremity: COMMON NORMALS: no pedal edema Neuro: SENSORIUM/ORIENTATION: Yes alert Skin: COMMON NORMALS: turgor normal GENERAL SKIN EXAM: turgor normal Course Vital Signs: Vital signs: Vital Signs Temperature 97.7 F 12/06/22 22:18 Pulse Rate 116 H 12/06/22 22:55 Respiratory Rate 18 12/07/22 03:50 Blood Pressure 124/70 12/06/22 22:48 Pulse Oximetry 99 12/07/22 03:50 Oxygen Delivery Me thod Nasal Cannula 12/06/22 22:55 Oxygen Flow Rate 5 12/06/22 22:55 MDM - SOB/Dyspnea Medical Decision Making Patient came into the emergency department for concerns of increased shortness of breath and anxiety. Patient appears nontoxic. Patient does have increased effort and difficulty with expiratory phase of her respirations. No adventitious sounds are noted in the lungs. Decreased air movement is noted. Vital signs noted no fever and O2 sats are 95% on 5 L. Differential diagnosis is anxiety, hypercapnia, pneumonia, exacerbation of COPD, pneumothorax. Chest x-ray showed no acute findings. CBC and CMP were unremarkable. ABG noted a carbon dioxide 71 which is in the normal range for patient. Patient was given a respiratory treatment and a dose of alprazolam for anxiety. Patient had improvement of symptoms and wanted to be discharged home to continue her care at home. Patient has her BiPAP machine and able to manage her symptoms at home. Patient does continue to smoke cigarettes. Lab Data 12/06/22 23:08 12/06/22 23:08 Labs/Radiology: Radiology Impressions Chest X-Ray 12/06/22 22:37 IMPRESSION: No acute findings. Laboratory Results WBC 13.3 10^3/uL (4.0-10.0) H 12/06/22 23:08 RBC 4.59 10^6/uL (4.1-5.3) 12/06/22 23:08 Hgb 13.5 g/dL (11.5-15.3) 12/06/22 23:08 Hct 43.9 % (37.0-47.0) 12/06/22 23:08 MCV 95.6 fl (81-99) 12/06/22 23:08 MCH 29.4 pg (28.0-34.0) 12/06/22 23:08 MCHC 30.8 g/dL (30.0-36.0) 12/06/22 23:08 RDW 12.4 % (12.1-15.1) 12/06/22 23:08 Plt Count 203 10^3/cmm (130-400) 12/06/22 23:08 MPV 9.6 fL (7.4-10.4) 12/06/22 23:08 Neut % (Auto) 76.0 % 12/06/22 23:08 Lymph % (Auto) 15.1 % 12/06/22 23:08 [place] % (Auto) 7.2 % 12/06/22 23:08 Eos % (Auto) 0.8 % 12/06/22 23:08 Baso % (Auto) 0.7 % 12/06/22 23:08 Neut # (Auto) 10.12 10^3/uL (1.8-7.7) H 12/06/22 23:08 Lymph # (Auto) 2.0 10^3/uL (0.8-4.8) 12/06/22 23:08 [place] # (Auto) 1.0 10^3/uL (0.2-0.9) H 12/06/22 23:08 Eos # (Auto) 0.1 10^3/uL (0.0-0.8) 12/06/22 23:08 Baso # (Auto) 0.1 10^3/uL (0.0-0.1) 12/06/22 23:08 Nucleated RBC % (auto) 0 % 12/06/22 23:08 Nucleated RBCs # 0.0 /100WBC 12/06/22 23:08 Specimen Type Arterial 12/06/22 23:00 Sample Site Brachial, left 12/06/22 23:00 ABG pH 7.31 (7.35-7.45) L 12/06/22 23:00 ABG pCO2 72.1 mmHg (35-45) H* 12/06/22 23:00 ABG pO2 107.0 mmHg (80.0-100.0) H 12/06/22 23:00 ABG HCO3 36.5 mmol/L (22-26) H 12/06/22 23:00 ABG Base Excess 7.5 mmol/L (-2.0-2.0) H 12/06/22 23:00 Jason Test N/a 12/06/22 23:00 Hematocrit 42.6 % (37-47) 12/06/22 23:00 Hgb O2 Saturation 94.6 % (95-100) L 12/06/22 23:00 Carboxyhemoglobin 3.4 %THgb (0.4-20.1) 12/06/22 23:00 Methemoglobin 0.7 % (0.4-1.5) 12/06/22 23:00 Total Hemoglobin 13.9 g/dL (12-16) 12/06/22 23:00 O2 Delivery Device Nc 12/06/22 23:00 O2 Liters/Min 6.0 % 12/06/22 23:00 FiO2 45.0 % 12/06/22 23:00 Station Mechanic Helper ID Krys 12/06/22 23:00 Sodium 143 mmol/L (136-145) 12/06/22 23:08 Potassium 4.0 mmol/L (3.5-5.1) 12/06/22 23:08 Chloride 99 mmol/L (98-107) 12/06/22 23:08 Carbon Dioxide 33 mmol/L (22-29) H 12/06/22 23:08 Anion Gap 15.0 (5-19) 12/06/22 23:08 BUN 20 mg/dL (6-20) 12/06/22 23:08 Creatinine 0.6 mg/dL (0.5-0.9) 12/06/22 23:08 GFR Calculation 107.2 mL/min (90-130) 12/06/22 23:08 Glucose 99 mg/dL (65-115) 12/06/22 23:08 Calculated Osmolality 299 mOsm/kg (285-295) H 12/06/22 23:08 Calcium 9.3 mg/dL (8.5-10.5) 12/06/22 23:08 Total Bilirubin 0.5 mg/dL (0.15-1.2) 12/06/22 23:08 AST 13 U/L (0-32) 12/06/22 23:08 ALT 16 U/L (0-33) 12/06/22 23:08 Alkaline Phosphatase 60 U/L (35-105) 12/06/22 23:08 Total Protein 6.1 g/dL (6.6-8.7) L 12/06/22 23:08 Albumin 4.3 g/dL (3.5-5.2) 12/06/22 23:08 Globulin 1.8 g/dL (1.3-4.6) 12/06/22 23:08 Discharge Plan Discharge Patient Disposition: Home Clinical Impression: Acute exacerbation of chronic obstructive airways disease, Hypercapnic respiratory failure, chronic Condition: Stable Prescriptions: No Action prednisone 20 mg tablet 20 mg PO DAILY alprazolam [Xanax] 0.5 mg tablet 0.5 mg PO BID PRN (Reason: anxiety) Qty: 14 0RF montelukast [Singulair] 10 mg tablet 10 mg PO DAILY Qty: 30 3RF levalbuterol tartrate [Xopenex HFA] 45 mcg/actuation HFA aerosol inhaler 1 puff inhalation Q6H Qty: 15 5RF levalbuterol HCl 0.63 mg/3 mL solution for nebulization 0.63 mg inhalation TID Qty: 75 3RF ipratropium-albuterol 0.5 mg-3 mg(2.5 mg base)/3 mL Solution For Nebulization 3 ml INHALATION Q4H PRN (Reason: Shortness Of Breath) propranolol 10 mg Tablet 10 mg PO DAILY guaifenesin [Mucinex] 600 mg Tablet Extended Release 12hr 600 mg PO DAILY PRN (Reason: Congestion) budesonide-formoterol [Symbicort] 160-4.5 mcg/actuation Hfa Aerosol Inhaler 2 puff INHALATION BID budesonide-formoterol [Symbicort] 160-4.5 mcg/actuation HFA aerosol inhaler 1 inh inhalation BID Qty: 10.2 4RF Spiriva Respimat 2.5 mcg/actuation mist 2 inh inhalation DAILY Qty: 4 5RF prednisone 50 mg tablet 50 mg PO DAILY Qty: 5 0RF Discharge Orders: Discharge ED (Routine); Ordered 12/06/22 Ordered By: Jerry Bautista Referrals: Nurys Brooks DO [Primary Care Provider] - Discharge Diet: Usual diet Discharge Activity: Increase activity as tolerated Patient Instructions: COPD (Chronic Obstructive Pulmonary Disease) (ED) Activity Restrictions/Additional Instructions: Home and continue routine care. Return to ED for worsening symptoms such as high fever or increasing shortness of breath. Coding Level of Care Code ED Instrument Panel Assembler for Juan M Vegas
--- NOTE | 2022-12-06 22:37 | XRR_ITS ---
PROCEDURE INFORMATION: Exam: XR Chest Exam date and time: 12/06/2022 10:45 PM Age: 47 years old Clinical indication: Shortness of breath; Additional info: Short of breath TECHNIQUE: Imaging protocol: Radiologic exam of the chest. Views: 1 view. COMPARISON: CR (CHEST, ) 11/20/2022 6:25 AM FINDINGS: Lungs: No acute infiltrate or pulmonary edema. Stable small calcified granulomas. Pleural spaces: Unremarkable. No pleural effusion. No pneumothorax. Heart/Mediastinum: Cardiomediastinal silhouette is stable and unremarkable. Bones/joints: No acute osseous abnormality. Couple of old healed left rib fractures. XR/XR chest 1V portable [id number] IMPRESSION: No acute findings.
[2022-12-06 22:48] VITALS: BP 124/70; PULSE 112; RESP 34; O2SAT 90
[2022-12-06] MEDS: ipratropium-albuterol 3 mL Neb INHALATION (22:51)
[2022-12-06] MEDS: acetaminophen 500 mg Tablet 1000 MG PO (22:52)
[2022-12-06] MEDS: ALPRAZolam 0.5 mg Tablet PO (22:52)
[2022-12-06 22:55] VITALS: PULSE 116; RESP 21; O2SAT 94
[2022-12-06 23:12] LABS: ABG PH Result 7.31 (7.35-7.45); Arterial Blood Gas Hematocrit 42.6 % (37-47); Base Excess ABG 7.5 mmol/L (-2.0-2.0); Blood Gas Sample Site Brachial, left; Blood Gas Sample Type Arterial; Carboxyhemoglobin 3.4 %THgb (0.4-20.1); HCO3 ABG 36.5 mmol/L (22-26); HGB O2 Sat 94.6 % (95-100); Methemoglobin 0.7 % (0.4-1.5); Oxygen Device NC; Total Hemoglobin 13.9 g/dL (12-16)
[2022-12-06 23:13] LABS: ABG PCO2 72.1 mmHg (35-45)
[2022-12-06 23:14] LABS: Basophils # 0.1 10^3/uL (0.0-0.1); Basophils % 0.7 %; Eosinophils # 0.1 10^3/uL (0.0-0.8); Eosinophils % 0.8 %; Hematocrit 43.9 % (37.0-47.0); Hemoglobin 13.5 g/dL (11.5-15.3); Lymphocytes % 15.1 %; Mean Corpuscular HGB Conc 30.8 g/dL (30.0-36.0); Mean Corpuscular Hemoglobin 29.4 pg (28.0-34.0); Mean Corpuscular Volume 95.6 fl (81-99); Mean Platelet Volume 9.6 fL (7.4-10.4); Monocytes % 7.2 %; Neutrophils # 10.12 10^3/uL (1.8-7.7); Nucleated Red Blood Cells % 0 %; Platelet Count 203 10^3/cmm (130-400); Red Blood Count 4.59 10^6/uL (4.1-5.3); Red Cell Distribution Width 12.4 % (12.1-15.1); White Blood Count 13.3 10^3/uL (4.0-10.0)
[2022-12-06 23:35] LABS: Alanine Aminotransferase 16 U/L (0-33); Albumin Level 4.3 g/dL (3.5-5.2); Alkaline Phosphatase 60 U/L (35-105); Aspartate Amino Transferase 13 U/L (0-32); Blood Urea Nitrogen 20 mg/dL (6-20); Calcium 9.3 mg/dL (8.5-10.5); Carbon Dioxide 33 mmol/L (22-29); Chloride 99 mmol/L (98-107); Globulin 1.8 g/dL (1.3-4.6); Glomerular Filtration Rate 107.2 mL/min (90-130); Glucose 99 mg/dL (65-115); Osmolality Calculated 299 mOsm/kg (285-295); Sodium 143 mmol/L (136-145); Total Bilirubin 0.5 mg/dL (0.15-1.2); Total Protein 6.1 g/dL (6.6-8.7)
[2022-12-07 03:50] VITALS: RESP 18; O2SAT 99
== END 2022-12-07 03:55 | disposition home or self-care (01) ==
PROVIDERS: Emergency Provider Nurse Practitioner Family; PCP Family Medicine
DX: J44.9 Chronic obstructive pulmonary disease, unspecified (principal); J96.12 Chronic respiratory failure with hypercapnia; Z79.899 Other long term (current) drug therapy; Z79.52 Long term (current) use of systemic steroids; F17.210 Nicotine dependence, cigarettes, uncomplicated
CPT/HCPCS: 36415; 36600; 71045; 80053; 82805; 85025; 94640; 99284

== ENCOUNTER 2023-01-25 10:04 | Inpatient (IN) | payer MEDICAID, SELFPAY ==
[2023-01-25] VITALS (126 sets, daily range): BP systolic 96–154; BP diastolic 64–98; PULSE 71–115; RESP 18–42; TEMP 36.6–37; O2SAT 88–99; BMI 21.4
--- NOTE | 2023-01-25 10:11 | XRR_ITS ---
PROCEDURE INFORMATION: Exam: XR Chest Exam date and time: 01/25/2023 10:29 AM Age: 47 Clinical indication: Shortness of breath; Additional info: Dyspnea/cough TECHNIQUE: Imaging protocol: Radiologic exam of the chest. Views: 1 view. COMPARISON: CR (CHEST, ) 12/06/2022 10:45 PM FINDINGS: Lungs: There is interval development of bibasilar interstitial/ground-glass opacities more pronounced on the right likely representing either interstitial pneumonia or atypical CHF pattern. There are stable granulomatous calcifications within the right mid lung zone. Upper lung walker are clear. Pleural spaces: Unremarkable. No pleural effusion. No pneumothorax. Heart/Mediastinum: Cardiac silhouette is within upper limits of normal, stable. Bones/joints: There are old healed fractures left ribs ribcage. No acute bony abnormalities detected. XR/XR chest 1V portable [id number] IMPRESSION: Interval development of bibasilar interstitial opacities as discussed above.
--- NOTE | 2023-01-25 10:12 | ED_ITS ---
HPI - SOB/Dyspnea General: Chief Complaint: Shortness of Breath/Dyspnea Stated Complaint: SOB Time Seen by Provider: 01/25/23 10:06 Source: patient Mode of arrival: ambulatory History of Present Illness: HPI Narrative: 47-year-old female with a history of COPD is O2 dependent at 2 L/min. She is on 6 L/min on arrival. She is difficult to understand because of tachypnea and work of breathing she has not been wearing her BiPAP lately. MD elicited complaint: shortness of breath and cough Pertinent past history: COPD Onset (ago): hour(s) Timing: constant Exacerbating factors: nothing Relieving factors: nothing Known history of: COPD Associated symptoms: Reports chest congestion and cough; Deny abdominal pain, chest pain, diaphoresis, dizziness, extremity pain, fever(s), hemoptysis, lightheadedness, myalgias, nausea, orthopnea, palpitations, paresthesias, polydipsia, polyuria, rash, sense of impending doom, syncope or vomiting Review of Systems Const: Reports: fatigue and malaise; Denies: fever(s), chills or diaphoresis Card: Denies: chest pain, palpitations, lightheadedness, syncope or orthopnea Resp: Reports: dyspnea, non-productive cough, wheezing and chest congestion; Denies: hemoptysis GI: Denies: abdominal pain, nausea or vomiting Musc: Denies: extremity pain Neuro: Denies: dizziness Endo: Denies: polyuria or polydipsia PFSH ED PFSH: Medical History Acute exacerbation of chronic obstructive airways disease Acute exacerbation of chronic obstructive airways disease COPD (chronic obstructive pulmonary disease) COPD exacerbation Nicotine dependence Respiratory failure with hypoxia and hypercapnia Social History Smoking and tobacco status: current every day smoker Physical Exam HENMT: COMMON NORMALS: normocephalic, atraumatic and hearing grossly normal bilaterally HEAD & SCALP: normocephalic and atraumatic Resp: COMMON NORMALS: normal respiratory effort, No retractions and No use of accessory muscles AUSCULTATION: rhonchi and wheezes Cardio: COMMON NORMALS: regular rhythm and No murmurs present (Cardio) RATE: tachycardic RHYTHM: regular rhythm GI: COMMON NORMALS: Soft to palpation and No hepatosplenomegaly present AUSCULTATION: Yes normoactive bowel sounds PALPATION: Yes Soft to palpation, No Tenderness to palpation present (GI), No Guarding due to palpation present (G I) and Yes No hepatosplenomegaly present Extremity: COMMON NORMALS: normal to inspection, capillary refill normal, no clubbing, cyanosis or edema, no calf tenderness and no pedal edema Skin: COMMON NORMALS: no rashes or lesions noted GENERAL SKIN EXAM: no rashes or lesions noted Course Vital Signs: Vital signs: Vital Signs Temperature 97.9 F 01/25/23 10:05 Pulse Rate 105 H 01/25/23 13:45 Respiratory Rate 22 H 01/25/23 13:45 Blood Pressure 135/98 01/25/23 10:53 Pulse Oximetry 95 01/25/23 13:45 Oxygen Delivery Me thod BiPAP 01/25/23 10:59 Oxygen Flow Rate 2.5 01/25/23 10:30 Fraction of Inspir ed Oxygen 30 01/25/23 13:45 MDM - SOB/Dyspnea Medical Decision Making Hypercapnic respiratory failure with pneumonia. Start IV antibiotics nebulizers given trial of BiPAP not a lot of improvement with her hypercapnia Dr. Santos asked that we intubate patient refuses began and asked to leave Dr. Santos will talk to her to see if he can convince her to stay she is admitted to the ICU. Medical Records I reviewed the patient's medical records. Lab Data I reviewed the patient's lab results. 01/25/23 10:20 01/25/23 10:20 Labs/Radiology: Radiology Impressions Chest X-Ray 01/25/23 10:11 IMPRESSION: Interval development of bibasilar interstitial opacities as discussed above. Laboratory Results WBC 18.89 10^3/uL (3.29-11.43) H 01/25/23 10:20 RBC 4.57 10^6/uL (3.85-5.65) 01/25/23 10:20 Hgb 13.50 g/dL (11.27-16.99) 01/25/23 10:20 Hct 43.2 % (36-47) 01/25/23 10:20 MCV 94.5 fl (85-98) 01/25/23 10:20 MCH 29.5 pg (27-33) 01/25/23 10:20 MCHC 31.3 g/dL (30-55) 01/25/23 10:20 RDW 12.2 % (12.1-15.1) 01/25/23 10:20 Plt Count 145 10^3/cmm (157-399) L 01/25/23 10:20 MPV 10.3 fL (7.4-10.4) 01/25/23 10:20 Neut % (Auto) 86.0 % 01/25/23 10:20 Lymph % (Auto) 4.0 % 01/25/23 10:20 [place] % (Auto) 9.1 % 01/25/23 10:20 Eos % (Auto) 0.2 % 01/25/23 10:20 Baso % (Auto) 0.4 % 01/25/23 10:20 Neut # (Auto) 16.27 10^3/uL (1.8-7.7) H 01/25/23 10:20 Lymph # (Auto) 0.8 10^3/uL (0.8-4.8) 01/25/23 10:20 [place] # (Auto) 1.7 10^3/uL (0.2-0.9) H 01/25/23 10:20 Eos # (Auto) 0.0 10^3/uL (0.0-0.8) 01/25/23 10:20 Baso # (Auto) 0.1 10^3/uL (0.0-0.1) 01/25/23 10:20 Nucleated RBC % (auto) 0 % 01/25/23 10:20 Nucleated RBCs # 0.0 /100WBC 01/25/23 10:20 Specimen Type Arterial 01/25/23 11:45 Sample Site Brachial, left 01/25/23 11:45 ABG pH 7.29 (7.35-7.45) L 01/25/23 11:45 ABG pCO2 80.2 mmHg (35-45) H* 01/25/23 11:45 ABG pO2 64.2 mmHg (80.0-100.0) L 01/25/23 11:45 ABG HCO3 38.4 mmol/L (22-26) H 01/25/23 11:45 ABG O2 Saturation 91.3 01/25/23 11:45 ABG Base Excess 8.5 mmol/L (-2.0-2.0) H 01/25/23 11:45 Jason Test Pos 01/25/23 11:45 A-a O2 Gradient 11.9 mmHg (5-10) H 01/25/23 11:45 Hematocrit 42.3 % (37-47) 01/25/23 11:45 Hgb O2 Saturation 89.1 % (95-100) L 01/25/23 11:45 Carboxyhemoglobin 1.7 %THgb (0.4-20.1) 01/25/23 11:45 Methemoglobin 0.7 % (0.4-1.5) 01/25/23 11:45 Total Hemoglobin 13.8 g/dL (12-16) 01/25/23 11:45 Sodium 138.0 mmol/L (131-143) 01/25/23 11:45 Potassium 4.0 mmol/L (3.5-5.0) 01/25/23 11:45 Glucose 105.0 mg/dL (70-115) 01/25/23 11:45 Ionized Calcium 1.2 mmol/L (1.1-1.4) 01/25/23 11:45 O2 Delivery Device Bipap 01/25/23 11:45 O2 Liters/Min 2.5 % 01/25/23 10:31 FiO2 35.0 % 01/25/23 11:45 Numerical Control Machine Operator ID [place] 01/25/23 11:45 Sodium 136 mmol/L (136-145) 01/25/23 10:20 Potassium 4.1 mmol/L (3.5-5.1) 01/25/23 10:20 Chloride 94 mmol/L (98-107) L 01/25/23 10:20 Carbon Dioxide 36 mmol/L (22-29) H 01/25/23 10:20 Anion Gap 10.1 (5-19) 01/25/23 10:20 BUN 12 mg/dL (6-20) 01/25/23 10:20 Creatinine 0.4 mg/dL (0.5-0.9) L 01/25/23 10:20 GFR Calculation 171.1 mL/min (90-130) H 01/25/23 10:20 Glucose 109 mg/dL (65-115) 01/25/23 10:20 Calculated Osmolality 282 mOsm/kg (285-295) L 01/25/23 10:20 Calcium 9.2 mg/dL (8.5-10.5) 01/25/23 10:20 Total Bilirubin 0.3 mg/dL (0.15-1.2) 01/25/23 10:20 AST 21 U/L (0-32) 01/25/23 10:20 ALT 17 U/L (0-33) 01/25/23 10:20 Alkaline Phosphatase 73 U/L (35-105) 01/25/23 10:20 Total Protein 6.8 g/dL (6.6-8.7) 01/25/23 10:20 Albumin 4.1 g/dL (3.5-5.2) 01/25/23 10:20 Globulin 2.7 g/dL (1.3-4.6) 01/25/23 10:20 SARS-CoV-2 Ag (Rapid) negative (Negative) 01/25/23 10:38 Discharge Plan Discharge Patient Disposition: Admitted As Inpatient Admit Provider: Cooper Santos Clinical Impression: Respiratory failure with hypoxia and hypercapnia, COPD (chronic obstructive pulmonary disease), Community acquired pneumonia Condition: Stable Coding Level of Care Code ED Dry Cell And Battery Assembler for Juan M Vegas
--- NOTE | 2023-01-25 10:17 | ECG_ITS ---
[facility] Test Date: 2023-01-25 Pat Name: Rebekah Gabriel Department: Room: Gender: Female Buffing Turner And Counter: : 1975 Requested By: Juan Jay Order Number: [id number] Chandana MD: Shakeel Jean M.D. Measurements Intervals Sasser Rate: 115 P: 85 MT: 110 QRS: 106 QRSD: 82 T: 63 QT: 327 QTc: 453 Interpretive Statements SINUS TACHYCARDIA WITH SHORT MT INTERVAL POSSIBLE RIGHT ATRIAL ENLARGEMENT [0.25mV P-WAVE] POSSIBLE LEFT ATRIAL ENLARGEMENT [-0.1mV P-WAVE IN V1/V2] INDETERMINATE AXIS POSSIBLE RIGHT VENTRICULAR CONDUCTION DELAY [RSR (QR) IN V1/V2] POSSIBLE ANTERIOR MYOCARDIAL INFARCTION , OF INDETERMINATE AGE [30 ms Q WAVE IN V3/V4, OR R < 0.2 mV IN V4] Compared to ECG 11/20/2022 06:22:36 Short MT interval now present Indeterminate axis now present Sinus rhythm no longer present Myocardial infarct finding still present Electronically Signed On 01-25-2023 13:58:52 CDT by Shakeel Jean M.D. [id number]
[2023-01-25] MEDS: ipratropium-albuterol 3 mL Neb INHALATION ×5 (10:30→23:05)
[2023-01-25 10:32] LABS: ABG PH Result 7.27 (7.35-7.45); Alveolar-Arterial Oxygen Gradi 6.2 mmHg (5-10); Arterial Blood Gas Hematocrit 42.3 % (37-47); Base Excess ABG 9.8 mmol/L (-2.0-2.0); Blood Gas Allen Test Pos; Blood Gas LPM 2.5 %; Blood Gas Operator Identificat MONRO; Blood Gas Sample Site Brachial, left; Blood Gas Sample Type Arterial; Carboxyhemoglobin 1.7 %THgb (0.4-20.1); HCO3 ABG 40.5 mmol/L (22-26); HGB O2 Sat 87.8 % (95-100); Ionized Calcium Level - ABG 1.2 mmol/L (1.1-1.4); Methemoglobin 0.7 % (0.4-1.5); Oxygen Device NC; PO2 ABG 62.8 mmHg (80.0-100.0); Total Hemoglobin 13.8 g/dL (12-16)
[2023-01-25 10:33] LABS: Basophils # 0.1 10^3/uL (0.0-0.1); Basophils % 0.4 %; Eosinophils % 0.2 %; Hematocrit 43.2 % (36-47); Lymphocytes # 0.8 10^3/uL (0.8-4.8); Mean Corpuscular HGB Conc 31.3 g/dL (30-55); Mean Corpuscular Hemoglobin 29.5 pg (27-33); Mean Corpuscular Volume 94.5 fl (85-98); Mean Platelet Volume 10.3 fL (7.4-10.4); Monocytes # 1.7 10^3/uL (0.2-0.9); Monocytes % 9.1 %; Neutrophils # 16.27 10^3/uL (1.8-7.7); Nucleated Red Blood Cells % 0 %; Platelet Count 145 10^3/cmm (157-399); Red Blood Count 4.57 10^6/uL (3.85-5.65); Red Cell Distribution Width 12.2 % (12.1-15.1); White Blood Count 18.89 10^3/uL (3.29-11.43)
[2023-01-25 10:33] LABS: ABG PCO2 88.2 mmHg (35-45)
[2023-01-25 10:57] LABS: Alanine Aminotransferase 17 U/L (0-33); Albumin Level 4.1 g/dL (3.5-5.2); Alkaline Phosphatase 73 U/L (35-105); Anion Gap 10.1 (5-19); Aspartate Amino Transferase 21 U/L (0-32); Blood Urea Nitrogen 12 mg/dL (6-20); Calcium 9.2 mg/dL (8.5-10.5); Carbon Dioxide 36 mmol/L (22-29); Chloride 94 mmol/L (98-107); Creatinine Clr Calc Pharmacy 152.3348; Globulin 2.7 g/dL (1.3-4.6); Glomerular Filtration Rate 171.1 mL/min (90-130); Glucose 109 mg/dL (65-115); Osmolality Calculated 282 mOsm/kg (285-295); Potassium 4.1 mmol/L (3.5-5.1); Sodium 136 mmol/L (136-145); Total Bilirubin 0.3 mg/dL (0.15-1.2); Total Protein 6.8 g/dL (6.6-8.7)
[2023-01-25] MEDS: ipratropium-albuterol 3 mL Neb 6 ML INHALATION (10:59)
[2023-01-25] MEDS: cefTRIAXone 1,000 MG in sodium chloride 0.9% (plus) 50 ML 100 MG IV (11:05)
[2023-01-25] MEDS: dexamethasone 10 mg/mL INJ IVP (11:06)
[2023-01-25 11:16] LABS: SARS Covid-2 Antigen negative (Negative)
[2023-01-25] MEDS: azithromycin 500 MG in sodium chloride 0.9% 250 ML 250 MG IV (11:41)
[2023-01-25 11:56] LABS: ABG PH Result 7.29 (7.35-7.45); Alveolar-Arterial Oxygen Gradi 11.9 mmHg (5-10); Arterial Blood Gas Hematocrit 42.3 % (37-47); Base Excess ABG 8.5 mmol/L (-2.0-2.0); Blood Gas Allen Test Pos; Blood Gas Operator Identificat MONRO; Blood Gas Sample Site Brachial, left; Blood Gas Sample Type Arterial; Carboxyhemoglobin 1.7 %THgb (0.4-20.1); HCO3 ABG 38.4 mmol/L (22-26); HGB O2 Sat 89.1 % (95-100); Ionized Calcium Level - ABG 1.2 mmol/L (1.1-1.4); Methemoglobin 0.7 % (0.4-1.5); Oxygen Device BIPAP; Oxygen Saturation ABG 91.3; PO2 ABG 64.2 mmHg (80.0-100.0); Total Hemoglobin 13.8 g/dL (12-16)
[2023-01-25 11:57] LABS: ABG PCO2 80.2 mmHg (35-45)
[2023-01-25] MEDS: dexmedetomidine 400 MCG in sodium chloride 0.9% (100 ml) 100 ML IV (13:50)
[2023-01-25 14:18] LABS: Bilirubin Urine 1+ (Negative); Blood Urine Neg (Negative); Glucose Urine UA Norm (Normal); Ketones Urine 2+ (Negative); Leukocyte Esterase Urine Trace (Negative); Nitrate Urine Negative (Negative); Protein Urine Trace (Negative); Urine Appearance Clear (CLEAR); Urine Color Dark Yellow (Yellow); Urobilinogen Urine Norm (Negative); pH Urine 5 (5-7)
[2023-01-25 14:19] LABS: Add Urine Culture? No; Bacteria Urine 2+ /hpf; Mucus Urine 1+ /hpf
--- NOTE | 2023-01-25 14:19 | P.HP_ITS ---
Providers/Chief Complaint Admitting Physician: Cooper Santos MD Primary Care Provider: Nurys Brooks DO Chief Complaint: SOB History of Present Illness Rebekah Gabriel is a 47 year old female past medical history of chronic hypoxic respiratory failure due to COPD COPD on chronically 2 to 3 L of oxygen, c chronic oxygen dependence, anxiety presents to the ER today because of difficulty in breathing which has been getting worse over last 2 days. Patient has had multiple admissions within the last 3 months because of COPD exacerbation. In the ER she was found to have hypercapnic respiratory failure with rapid respiratory acidosis for which she was placed on BiPAP. Denies any nausea vomiting, headache. Asking for medication for anxiety. Review of Systems General: Reports: 10 or more systems reviewed and unremarkable except in HPI and below Const: Denies: fever(s), chills, body aches, change in appetite, change in weight, malaise, night sweats, diaphoresis, change in sleep pattern, daytime sleepiness or snoring Eyes: Denies: change in vision, blurry vision, photophobia, eye discomfort or eye discharge ENMT: Denies: throat pain, enlarged tonsils, hoarseness, mouth pain, oral sores, dry mouth, tinnitus, nasal congestion or post nasal drip Card: Denies: chest pain, palpitations, irregular heart rhythm, edema, swelling of feet/ankles, lightheadedness, syncope, pre-syncope, dyspnea on exertion, orthopnea, leg pain with exertion or acrocyanosis Resp: Denies: dyspnea, productive cough, non-productive cough, wheezing, stridor, pain on inspiration, change in phlegm color, hemoptysis or chest congestion GI: Denies: abdominal pain, nausea, vomiting, hematemesis, coffee ground emesis, dysphagia, heartburn, diarrhea, constipation, bloating, GI cramping, change in bowel habits, pain on defecation, hematochezia or melena : Denies: flank pain, dysuria, urinary frequency, urinary urgency, urinary hesitancy, nocturia or hematuria Musc: Denies: neck pain, back pain, extremity pain, joint pain, joint swelling, joint redness, joint stiffness or limited range of motion Neuro: Denies: headache(s), numbness in extremities, weakness in extremities, sensory changes, lack of coordination, difficulty walking, frequent falls, dizziness, vertigo, confusion, Slurred speech present, difficulty communicating thoughts or seizure-like activity Psych: Denies: anxiety, depression, mood swings, panic attacks, hopelessness or irritability Endo: Denies: polyuria, polydipsia, tired all the time, cold intolerance, excessive sweating, flushing or heat intolerance Keshawn/Lymph: Denies: easy bruising or easy bleeding All/Imm: Denies: tongue swelling, facial swelling or acute wheezing Medications/Allergies Home Medications Medication Instructions Recorded Confirmed Last Taken Type ipratropium 0.5 mg-albuterol 3 mg 3 ml inhalation Q4H PRN Shortness 09/26/22 01/25/23 Unknown History (2.5 mg base)/3 mL nebulization Of Breath soln propranolol 10 mg tablet 10 mg PO DAILY 09/26/22 01/25/23 10/19/22 History budesonide-formoterol HFA 160 2 puff inhalation BID 10/04/22 01/25/23 10/19/22 History mcg-4.5 mcg/actuation aerosol inhaler (Symbicort) tiotropium bromide 2.5 2 inh inhalation DAILY #4 grams 10/06/22 01/25/23 10/19/22 Rx mcg/actuation mist for inhalation (Spiriva Respimat) alprazolam 0.5 mg tablet (Xanax) 0.5 mg PO BID PRN anxiety #14 tabs 11/01/22 01/25/23 Unknown Rx levalbuterol HCl 0.63 mg/3 mL 0.63 mg (3 mL) inhalation TID #75 11/01/22 01/25/23 Unknown Rx solution for nebulization mL levalbuterol tartrate 45 1 puff inhalation Q6H #15 grams 11/01/22 01/25/23 Unknown Rx mcg/actuation aerosol inhaler (Xopenex HFA) montelukast 10 mg tablet 10 mg PO DAILY #30 tabs 11/01/22 01/25/23 Unknown Rx (Singulair) Allergies Allergy/AdvReac Type Severity Reaction Status Date / Time levofloxacin [From Levaquin] Allergy Unknown Verified 01/25/23 10:13 Penicillins Allergy Unknown Verified 01/25/23 10:13 Sulfa (Sulfonamide Allergy Unknown Verified 01/25/23 10:13 Antibiotics) PFSH Acute PFSH: Medical History (Updated 01/25/23 @ 16:26 by Cooper Santos MD) Acute exacerbation of chronic obstructive airways disease Acute exacerbation of chronic obstructive airways disease COPD (chronic obstructive pulmonary disease) COPD exacerbation Nicotine dependence Respiratory failure with hypoxia and hypercapnia Social History Smoking and tobacco status: current every day smoker Vitals/I&O/Wt Last Vital Signs Temp 97.9 F 01/25/23 10:05 Pulse 105 H 01/25/23 13:45 Resp 22 H 01/25/23 13:45 BP 135/98 01/25/23 10:53 Pulse Ox 95 01/25/23 13:45 O2 Del Method BiPAP 01/25/23 10:59 O2 Flow Rate 2.5 01/25/23 10:30 FiO2 30 01/25/23 13:45 01/24/23 01/25/23 01/25/23 22:59 06:59 14:59 Intake Total 300 / 300 Balance 300 / 300 Weight last 48 hrs Weight 56.699 kg Data 01/25/23 10:20 01/25/23 10:20 Micro: Microbiology 01/25/23 10:26 Blood Culture - Preliminary Blood SPECIMEN COLLECTED 01/25/23 10:20 Blood Culture - Preliminary Blood SPECIMEN COLLECTED A&P Assessment and plan (1) Acute on chronic respiratory failure with hypoxia and hypercapnia: Insetting of severe COPD exacerbation. With respiratory acidosis. Appreciate ABG. Switch from BiPAP 18/10 to AVAPS mode. Monitor pressures and tidal volumes. Repeat ABG in 1 hour. DuoNebs every 4 hour, budesonide twice daily. Solu-Medrol 125 mg one-time followed by 40 mg every 6 hourly. IV mag one-time. Check CT chest. Given young age, severity of COPD cannot rule out alpha-1 antitrypsin deficiency. Check levels, ESR, CRP, ZARIA panel. Patient does have leukocytosis but no other signs of pneumonia for now. Check CT chest for consolidation. For now only start oral azithromycin 500 mg daily. Patient given IV ceftriaxone and azithromycin in the ER. Check sputum culture, respiratory viral panel, MRSA swab, ESR, CRP. (2) Acute exacerbation of chronic obstructive airways disease: (3) Amphetamine abuse: Positive for urine drug screen. Monitor for withdrawal. Check HIV, hepatitis panel. (4) Anxiety: Continue home dose of Xanax. Morphine 1 mg every 4 hourly as needed. Start on Precedex drip. Plan Nicotine dependence: Nicotine patch. Goals of care discussion: We discussed in detail with patient that if BiPAP does not improve respiratory acidosis and hypercapnia next step would be ventilator. Patient states she knows if he ends up on ventilator she is never coming off and has been dealing with breathing issues for her whole life and would not want to be on a ventilator and wants to go back to her dog as soon as possible. She does not want to be intubated as it would mean that she would be ventilator dependent. After chest compressions. CODE STATUS: Limited resuscitation to chest compressions only Cardiac diet Protonix for PUD prophylaxis Lovenox for DVT prophylaxis Nicotine patch Attestations Medical Necessity Statement*: Admission for more than 2 midnights for management of hypercapnic and hypoxic respiratory failure leading to respiratory acidosis in setting of COPD exacerbation Coding Level of Care Code Critical Care >/= 30 minutes Critical care time (in minutes): 60 The high probability of a clinically significant, sudden or life threatening deterioration, as referenced in this documentation, required my full and direct attention, intervention and personal management. The critical care time shown is in addition to time spent performing any reported separately billable procedures and includes the following: [x] Data and vital sign review and interpretation [x ] Patient assessment, examination and intervention [x] Medication orders and management [x] Patient/Family updates as able [x] Care Coordination and Documentation. Diagnoses Acute on chronic respiratory failure with hypoxia and hypercapnia J96.21; J96.22 Acute exacerbation of chronic obstructive airways disease J44.1 Amphetamine abuse F15.10 Anxiety F41.9
[2023-01-25] MEDS: budesonide 0.5 mg/2 mL Neb INHALATION ×2 (14:25→19:17)
[2023-01-25] MEDS: methylPREDNISolone sod succ 125 MG in water for injection-sterile 2 ML 24 MG IVP (14:32)
[2023-01-25] MEDS: sodium chloride 0.9% 1,000 ML 100 ML IV ×2 (14:36→23:14)
[2023-01-25] MEDS: pantoprazole 40 mg SDV IVP (14:45)
[2023-01-25] MEDS: heparin 5,000 unit/mL INJ 1 mL 5000 UNIT SUBCUT ×2 (14:45→21:20)
[2023-01-25 14:46] LABS: Amphetamines Screen Urine Positive (Negative); Barbiturates Screen Urine Negative (Negative); Benzodiazepines Screen Urine Negative (Negative); Cocaine Screen Urine Negative (Negative); Opiate Screen Urine Negative (Negative); PCP Screen Urine Negative (Negative); THC Screen Urine Positive (Negative)
[2023-01-25 15:28] LABS: D Dimer 0.31 ug/mLFEU (0-0.59)
[2023-01-25 15:37] LABS: NT Pro B Type Natriuretic Pept 164 pg/mL (0-125); Vitamin B12 482 pg/mL (232-1245)
[2023-01-25 15:40] LABS: Phosphorus 3.5 mg/dL (2.5-4.5); Thyroid Stimulating Hormone 0.34 uIU/mL (0.27-4.20)
[2023-01-25 15:48] LABS: Iron 16 ug/dL (37-145); Percent Saturation 5.3 % (20-50); Total Iron Binding Capacity 299 mcg/dl; Unsaturated Iron Binding 283 ug/dL (112-347)
--- NOTE | 2023-01-25 16:02 | CTR_ITS ---
PROCEDURE INFORMATION: Exam: CT Chest Without Contrast; Diagnostic Exam date and time: 01/25/2023 5:11 PM Age: 47 years old Clinical indication: Shortness of breath; Additional info: Copd exacerberation TECHNIQUE: Imaging protocol: Diagnostic computed tomography of the chest without contrast. Radiation optimization: All CT scans at this facility use at least one of these dose optimization techniques: automated exposure control; mA and/or kV adjustment per patient size (includes targeted exams where dose is matched to clinical indication); or iterative reconstruction. REPORTING DATA: Count of CT and Cardiac NM exams in prior 12 months: This patient has received 0 known CTs and 0 known cardiac nuclear medicine studies in the 12 months prior to the current study. COMPARISON: CR (CHEST, ) 01/25/2023 10:29 AM RADIATION DOSE METRICS: Total DLP (mGy-cm): 303.75 FINDINGS: Lungs: Small patchy infiltrates peripherally right lung base and to lesser extent left lingula likely secondary to pneumonia. Remaining lung walker are clear. Diffuse upper lobe emphysematous changes. Scattered chronic granulomatous calcifications both lung walker. Pleural spaces: Unremarkable. No pneumothorax. No pleural effusion. Heart: Heart is not significantly enlarged. No significant coronary artery calcifications. No significant pericardial effusion. Lymph nodes: Unremarkable. No enlarged lymph nodes. Vasculature: Unremarkable. No aortic aneurysm. Bones/joints: Unremarkable. No acute fracture. Soft tissues: Unremarkable. CT/CT chest wo con [id number] IMPRESSION: 1. Small patchy lower lobe infiltrates likely secondary to pneumonia. 2. COPD with upper lobe emphysematous changes.
[2023-01-25 16:47] LABS: ABG PH Result 7.34 (7.35-7.45); Arterial Blood Gas Hematocrit 41.1 % (37-47); Blood Gas Allen Test Pos; Blood Gas Sample Type Arterial; Carboxyhemoglobin 1.8 %THgb (0.4-20.1); HCO3 ABG 37.5 mmol/L (22-26); HGB O2 Sat 87.6 % (95-100); Ionized Calcium Level - ABG 1.2 mmol/L (1.1-1.4); Methemoglobin 0.3 % (0.4-1.5); Oxygen Saturation ABG 89.4; PO2 ABG 55.3 mmHg (80.0-100.0); Potassium Level - ABG 5.1 mmol/L (3.5-5.0); Total Hemoglobin 13.4 g/dL (12-16)
[2023-01-25 16:50] LABS: ABG PCO2 69.9 mmHg (35-45); Alveolar-Arterial Oxygen Gradi 9.8 mmHg (5-10); Blood Gas Operator Identificat MONRO; Blood Gas Sample Site Brachial, left; Oxygen Device BIPAP
[2023-01-25 16:57] LABS: C Reactive Protein 94.7 mg/L (0.0-4.9)
[2023-01-25 17:08] LABS: HIV 1 & 2 Antibody Non-Reactive (Non-Reactiv); HIV 1 & 2 Antigen Non-Reactive (Non-Reactiv)
[2023-01-25 17:15] LABS: Erythrocyte Sedimentation Rate 19 mm/hr (0-15)
[2023-01-25 17:18] LABS: Hepatitis A Antibody IgM Non-Reactive (Nonreactive); Hepatitis B Core AB, Total Non-Reactive (Nonreactive); Hepatitis B Surface Antigen Non-Reactive (Nonreactive); Hepatitis C Virus Antibody Non-Reactive (Nonreactive)
[2023-01-25 17:20] LABS: Hepatitis B Surface AB < 3.5 (11.5-1000)
[2023-01-25] MEDS: methylPREDNISolone sod succ 40 MG in water for injection-sterile 1 ML 12 MG IVP (18:09)
[2023-01-25 18:22] LABS: Adenovirus Not Detected (NOT DETECT); Chlamydia Pneumoniae Not Detected (NOT DETECT); Coronavirus 229E,HKU1,NL63,OC4 Not Detected (NOT DETECT); Human Metapneumovirus Not Detected (NOT DETECT); Human Rhinovirus/Enterovirus Not Detected (NOT DETECT); Influenza A Not Detected (NOT DETECT); Influenza A H1 Not Detected (NOT DETECT); Influenza A H1-2009 Not Detected (NOT DETECT); Influenza A H3 Not Detected (NOT DETECT); Influenza B Not Detected (NOT DETECT); Mycoplasma Pneumoniae Not Detected (NOT DETECT); Parainfluenza Virus Type 1 Not Detected (NOT DETECT); Parainfluenza Virus Type 2 Not Detected (NOT DETECT); Parainfluenza Virus Type 3 Not Detected (NOT DETECT); Parainfluenza Virus Type 4 Not Detected (NOT DETECT); Respiratory Syncytial Virus A Not Detected (NOT DETECT); Respiratory Syncytial Virus B Not Detected (NOT DETECT); SARS-COV-2 Not Detected (NOT DETECT)
--- NOTE | 2023-01-25 18:31 | PC.NURSE ---
Received patient from ER staff at 1320. Patient is alert to self only. Patient is confused, yelling about how she wants to see her dog. Temp: 98.6, HR: 105, BP: 116/68, 96% on 30%fio2 bipap. Precedex started. one time dose of morphone ordered, but precedex was effective at calming patient, Dr campbell ordered to hold morphine
--- NOTE | 2023-01-25 18:39 | PC.NURSE ---
Patient has been on unit for about 5 hours. No urine output. No erickson. Nurse bladder scanned patient and it shows 100mL retained. Will continue to monitor.
--- NOTE | 2023-01-25 18:40 | PC.NURSE ---
Addendum entered by Higinio Link RN 01/25/23 19:34: Uneventful shift. After receiveing patient form ER, patient was calm and spent rest of shift sleeping while on 0.1mcg/kg/hr of precedex and on bipap. Taken to CT and results available in reports. Original Note: Uneventful shift. After receiveing patient form ER, patient was calm and spent rest of shift sleeping while on 0.1mcg/kg/hr and on bipap. Taken to CT and results available in reports.
[2023-01-25] MEDS: methylPREDNISolone sod succ 40 MG in water for injection-sterile 1 ML IVP (23:12)
[2023-01-26] VITALS (82 sets, daily range): BP systolic 93–135; BP diastolic 58–93; PULSE 61–108; RESP 16–36; O2SAT 89–100
[2023-01-26] MEDS: ipratropium-albuterol 3 mL Neb INHALATION ×5 (03:00→19:47)
[2023-01-26 03:04] LABS: ABG PH Result 7.37 (7.35-7.45); Alveolar-Arterial Oxygen Gradi 9.2 mmHg (5-10); Arterial Blood Gas Hematocrit 38.5 % (37-47); Base Excess ABG 7.4 mmol/L (-2.0-2.0); Blood Gas Allen Test Pos; Blood Gas Sample Site Radial, right; Blood Gas Sample Type Arterial; Carboxyhemoglobin 1.6 %THgb (0.4-20.1); HCO3 ABG 34.6 mmol/L (22-26); HGB O2 Sat 93.4 % (95-100); Ionized Calcium Level - ABG 1.3 mmol/L (1.1-1.4); Methemoglobin 0.5 % (0.4-1.5); Oxygen Device BIPAP; Oxygen Saturation ABG 95.4; PO2 ABG 70.9 mmHg (80.0-100.0); Potassium Level - ABG 4.3 mmol/L (3.5-5.0); Total Hemoglobin 12.6 g/dL (12-16)
[2023-01-26 03:06] LABS: ABG PCO2 60.3 mmHg (35-45)
[2023-01-26 05:08] LABS: Basophils % 0.1 %; Hematocrit 41.9 % (36-47); Lymphocytes # 0.4 10^3/uL (0.8-4.8); Lymphocytes % 4.8 %; Mean Corpuscular HGB Conc 30.1 g/dL (30-55); Mean Corpuscular Volume 96.3 fl (85-98); Mean Platelet Volume 10.6 fL (7.4-10.4); Monocytes # 0.1 10^3/uL (0.2-0.9); Neutrophils % 93.7 %; Nucleated Red Blood Cells % 0 %; Platelet Count 150 10^3/cmm (157-399); Red Blood Count 4.35 10^6/uL (3.85-5.65); Red Cell Distribution Width 12.4 % (12.1-15.1); White Blood Count 9.18 10^3/uL (3.29-11.43)
[2023-01-26 05:22] LABS: Chol HDL Ratio 2.52 mg/dL (0.0-4.40); Cholesterol 146 mg/dL (0-200); HDL Cholesterol 58 mg/dL (60-100); LDL Cholesterol Calculated 76 mg/dL (50-129); LDL HDL Ratio 1.31 RATIO (0.00-3.22); Magnesium 2.2 mg/dL (1.7-2.3); Triglycerides 62 mg/dL (0-150); VLDL Cholestrol Calculation 12 mg/dL (0-30)
[2023-01-26 05:25] LABS: Estmated Average Glucose 108; Hemoglobin A1C 5.4 % (4.0-6.0)
[2023-01-26 05:29] LABS: Alanine Aminotransferase 13 U/L (0-33); Albumin Level 3.6 g/dL (3.5-5.2); Alkaline Phosphatase 63 U/L (35-105); Anion Gap 14.2 (5-19); Aspartate Amino Transferase 15 U/L (0-32); Blood Urea Nitrogen 13 mg/dL (6-20); Calcium 8.9 mg/dL (8.5-10.5); Carbon Dioxide 34 mmol/L (22-29); Chloride 98 mmol/L (98-107); Globulin 2.3 g/dL (1.3-4.6); Glomerular Filtration Rate 171.1 mL/min (90-130); Glucose 121 mg/dL (65-115); Osmolality Calculated 293 mOsm/kg (285-295); Potassium 5.2 mmol/L (3.5-5.1); Sodium 141 mmol/L (136-145); Total Bilirubin 0.3 mg/dL (0.15-1.2); Total Protein 5.9 g/dL (6.6-8.7)
[2023-01-26] MEDS: heparin 5,000 unit/mL INJ 1 mL 5000 UNIT SUBCUT (05:30)
[2023-01-26 05:32] LABS: Creatinine Clr Calc Pharmacy 152.3348
[2023-01-26] MEDS: methylPREDNISolone sod succ 40 MG in water for injection-sterile 1 ML IVP (05:32)
[2023-01-26 06:00] LABS: Slide Review Slide Review Perform
[2023-01-26] MEDS: dexmedetomidine 400 MCG in sodium chloride 0.9% (100 ml) 100 ML 7.37 MCG IV (06:26)
[2023-01-26] MEDS: budesonide 0.5 mg/2 mL Neb INHALATION ×2 (07:57→19:48)
[2023-01-26] MEDS: montelukast sodium 10 mg Tablet PO (08:53)
[2023-01-26] MEDS: azithromycin 250 mg Tablet 500 MG PO (08:53)
[2023-01-26] MEDS: sodium chloride 0.9% 1,000 ML 100 ML IV (09:50)
[2023-01-26] MEDS: ALPRAZolam 0.5 mg Tablet PO (10:54)
[2023-01-26] MEDS: PARoxetine 20 mg Tablet PO (11:31)
[2023-01-26] MEDS: pantoprazole 40 mg SDV IVP (14:15)
[2023-01-26] MEDS: methylPREDNISolone sod succ 40 MG in water for injection-sterile 1 ML 12 MG IVP (14:16)
--- NOTE | 2023-01-26 15:36 | P.PN_ITS ---
Subjective Subjective: No acute events overnight. Today morning seen sitting up in bed on nasal cannula. Was on BiPAP till earlier today morning. Continues to remain on Precedex at 0.5 which was turned down and then weaned off. Patient on examination if tearful, wants to go home as soon as possible as she knows she is going to because of chronic worsening COPD and wants to spend as long as she can at home. States she has been trying to get BiPAP settings adjusted at home for a long time through her outpatient oxygen company but not been able to which has been very frustrating for her and she thinks is most likely reason for her recurrent admissions. Currently she is on 2 L of oxygen supplementation. Blood work from today morning appreciated for a stable CBC, stable thrombocytopenia, ABG showing resolution of respiratory acidosis, PCO2 of 60 which seems to be baseline, PO2 of 70.9, chemistry showing mild hyperkalemia up to 5.2 Vitals/I&O/Wt Last Vital Signs Temp 98.6 F 01/25/23 15:30 Pulse 107 H 01/26/23 14:00 Resp 35 H 01/26/23 14:00 BP 128/78 01/26/23 14:00 Pulse Ox 96 01/26/23 14:00 O2 Del Method Nasal Cannula 01/26/23 14:00 O2 Flow Rate 2 01/26/23 14:00 FiO2 30 01/26/23 08:00 01/26/23 01/26/23 01/26/23 06:59 14:59 22:59 Intake Total 920.142 / 3768.080 2135.008 / 1325.008 Output Total 350 / 350 Balance 570.142 / 080.863 0945.008 / 1325.008 Weight last 48 hrs Weight 56.699 kg Physical Exam Narrative: General: No acute distress, AO x3, NC oxygen supplementation, anxious, tearful HEENT: PERRLA, pupils bilaterally equal and reactive Chest: Bronchial breath sounds all over lung field with diffuse scattered rhonchi and crackles CVS: S1-S2 regular, no murmurs, no tachycardia, no gallops, no rubs Abdomen: Soft, nontender, no organomegaly, bowel sounds present, morbidly obese Neuro: No focal deficits, no facial deformity, AO x3, power 5/5 in all limbs Data 01/26/23 04:39 01/26/23 04:39 Micro: Microbiology 01/25/23 10:26 Blood Culture - Preliminary Blood NEGATIVE TO DATE 01/25/23 10:20 Blood Culture - Preliminary Blood NEGATIVE TO DATE A&P Assessment and plan (1) Acute on chronic respiratory failure with hypoxia and hypercapnia: Insetting of severe COPD exacerbation. With respiratory acidosis. Appreciate ABG. Improvement since yesterday. Continue with nasal cannula oxygen supplementation keeping saturation over 90%. BiPAP nightly and as needed. Have requested patient to bring her outpatient BiPAP machine so new settings can be adjusted in the machine. Plan to keep patient on her outpatient BiPAP machine on new and current settings and monitor in AM. If patient remains stable can even discharged on steroid taper. Wean Solu-Medrol to 40 mg every 8 hourly. Respiratory viral panel negative, ESR CRP levels appreciated. ZARIA pending, alpha-1 antitrypsin levels pending. Follow-up sputum culture. For now continue with oral azithromycin. (2) Acute exacerbation of chronic obstructive airways disease: (3) Amphetamine abuse: Positive for urine drug screen. Monitor for withdrawal. Negative HIV, hepatitis panel. (4) Anxiety: Continue home dose of Xanax. Morphine 1 mg every 4 hourly as needed. Wean off Precedex drip. Start on paroxetine 20 mg oral daily. Patient is agreeable. Plan Nicotine dependence: Nicotine patch. Goals of care discussion: We discussed in detail with patient that if BiPAP does not improve respiratory acidosis and hypercapnia next step would be ventilator. Patient states she knows if he ends up on ventilator she is never coming off and has been dealing with breathing issues for her whole life and would not want to be on a ventilator and wants to go back to her dog as soon as possible. She does not want to be intubated as it would mean that she would be ventilator dependent. After chest compressions. CODE STATUS: Limited resuscitation to chest compressions only Cardiac diet Protonix for PUD prophylaxis Lovenox for DVT prophylaxis Nicotine patch Attestations Medical Necessity Statement*: Requires further hospitalization for management of COPD exacerbation leading to hypoxic hypercapnic respiratory failure, anxiety while outpatient BiPAP machine settings were adjusted, Precedex weaned off Coding Level of Care Code Critical Care >/= 30 minutes Critical care time (in minutes): 60 The high probability of a clinically significant, sudden or life threatening deterioration, as referenced in this documentation, required my full and direct attention, intervention and personal management. The critical care time shown is in addition to time spent performing any reported separately billable procedures and includes the following: [x] Data and vital sign review and interpretation [x ] Patient assessment, examination and intervention [x] Medication orders and management [x] Patient/Family updates as able [x] Care Coordination and Documentation. Diagnoses Acute on chronic respiratory failure with hypoxia and hypercapnia J96.21; J96.22 Acute exacerbation of chronic obstructive airways disease J44.1 Amphetamine abuse F15.10 Anxiety F41.9
[2023-01-26] MEDS: methylPREDNISolone sod succ 40 MG in water for injection-sterile 1 ML 999 MG IVP (22:40)
[2023-01-27] VITALS (33 sets, daily range): BP systolic 126–157; BP diastolic 73–97; PULSE 61–95; RESP 18–34; TEMP 36.6–36.9; O2SAT 86–99
[2023-01-27] MEDS: ipratropium-albuterol 3 mL Neb INHALATION ×3 (03:04→11:55)
[2023-01-27 04:33] LABS: Basophils % 0.1 %; Hematocrit 42.7 % (36-47); Lymphocytes # 0.4 10^3/uL (0.8-4.8); Mean Corpuscular HGB Conc 30.9 g/dL (30-55); Mean Corpuscular Hemoglobin 29.8 pg (27-33); Mean Corpuscular Volume 96.4 fl (85-98); Mean Platelet Volume 11.1 fL (7.4-10.4); Monocytes # 0.3 10^3/uL (0.2-0.9); Monocytes % 1.8 %; Neutrophils # 13.49 10^3/uL (1.8-7.7); Neutrophils % 94.7 %; Nucleated Red Blood Cells % 0 %; Platelet Count 144 10^3/cmm (157-399); Red Blood Count 4.43 10^6/uL (3.85-5.65); Red Cell Distribution Width 12.3 % (12.1-15.1); White Blood Count 14.24 10^3/uL (3.29-11.43)
[2023-01-27 04:52] LABS: Magnesium 2.3 mg/dL (1.7-2.3)
[2023-01-27 04:54] LABS: Alanine Aminotransferase 13 U/L (0-33); Albumin Level 3.7 g/dL (3.5-5.2); Alkaline Phosphatase 62 U/L (35-105); Anion Gap 9.6 (5-19); Aspartate Amino Transferase 13 U/L (0-32); Blood Urea Nitrogen 18 mg/dL (6-20); Calcium 8.7 mg/dL (8.5-10.5); Carbon Dioxide 33 mmol/L (22-29); Chloride 103 mmol/L (98-107); Globulin 2.2 g/dL (1.3-4.6); Glomerular Filtration Rate 132.2 mL/min (90-130); Glucose 145 mg/dL (65-115); Osmolality Calculated 296 mOsm/kg (285-295); Potassium 4.6 mmol/L (3.5-5.1); Sodium 141 mmol/L (136-145); Total Bilirubin 0.2 mg/dL (0.15-1.2); Total Protein 5.9 g/dL (6.6-8.7)
[2023-01-27] MEDS: methylPREDNISolone sod succ 40 MG in water for injection-sterile 1 ML 999 MG IVP (05:22)
--- NOTE | 2023-01-27 05:40 | PC.NURSE ---
Patient refusing heparin injections. Physician notified.
[2023-01-27] MEDS: azithromycin 250 mg Tablet 500 MG PO (08:12)
[2023-01-27] MEDS: PARoxetine 20 mg Tablet PO (08:12)
[2023-01-27] MEDS: propranolol 20 mg Tablet 10 MG PO (08:13)
[2023-01-27] MEDS: montelukast sodium 10 mg Tablet PO (08:13)
[2023-01-27] MEDS: budesonide 0.5 mg/2 mL Neb INHALATION (08:30)
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
[2023-01-27 15:11] LABS: Anti-Double Strand DNA AB <1 IU/mL; Jo-1 Antibody <1.0 NEG AI (<1.0 NEG); SM/RNP Antibodies <1.0 NEG AI (<1.0 NEG); SS-B/LA IGG <1.0 NEG AI (<1.0 NEG); Scleroderma Ab(Scl-70) Ab <1.0 NEG AI (<1.0 NEG); Ss-A/Ro Igg <1.0 NEG AI (<1.0 NEG)
[2023-01-27 15:33] LABS: Methicillin-Resist S.aureu PCR DETECTED (NOT DETECTED)
[2023-01-28 11:23] LABS: Alpha 1 Antitrypsin 193 mg/dL (83-199)
== END 2023-01-27 14:17 | disposition home or self-care (01) | DRG 190 ==
LOC: ER 10:46 → ICU 12:37
PROVIDERS: Admitting Provider Student in an Organized Health Care Education/Training Program; Emergency Provider Family Medicine; PCP Family Medicine; Visit Provider Internal Medicine
DX: J44.1 Chronic obstructive pulmonary disease with (acute) exacerbation (principal); J18.9 Pneumonia, unspecified organism; J96.22 Acute and chronic respiratory failure with hypercapnia; J96.21 Acute and chronic respiratory failure with hypoxia; E87.29 Other acidosis; J44.0 Chronic obstructive pulmonary disease with (acute) lower respiratory infection; F15.10 Other stimulant abuse, uncomplicated; F41.9 Anxiety disorder, unspecified; Z99.81 Dependence on supplemental oxygen; F17.210 Nicotine dependence, cigarettes, uncomplicated; E88.01 Alpha-1-antitrypsin deficiency; D69.6 Thrombocytopenia, unspecified; E87.5 Hyperkalemia
CPT/HCPCS: 36415; 36600; 71045; 71250; 80051; 80053; 80061; 80306; 81001; 82103; 82330; 82607; 82805; 83036; 83540; 83550; 83735; 83880; 84100; 84145; 84443; 85025; 85378; 85651; 86140; 86225; 86235; 86705; 86706; 86709; 86803; 87040; 87340; 87426; 87486; 87581; 87633; 87641; 87806; 93005; 94640; 94660; 94760; 96365; 96367; 96372; 96375; 96376; 99291; C9113; J0456; J0696; J1100; J1644; J2920; J2930; J3475; J7030; J7050; J7626; Q0144

== ENCOUNTER 2023-02-18 11:50 | Inpatient (IN) | payer MEDICAID, SELFPAY ==
[2023-02-18] VITALS (38 sets, daily range): BP systolic 108–130; BP diastolic 66–92; PULSE 88–112; RESP 16–44; TEMP 36.5–36.8; O2SAT 89–98; BMI 22.3
--- NOTE | 2023-02-18 12:05 | XR_ITS ---
WS: [id number] EXAMINATION: XR chest 1V portable [id number] REASON FOR EXAM: Dyspnea COMPARISON: 01/25/2023 ORDER DATE: 02/18/2023 12:08 PM FINDINGS: There are scattered perihilar granulomatous calcifications. There are chronically increased perihilar /basilar bronchovascular and interstitial thickening with hyperinflation. The cardiac and mediastin al outlines are unremarkable. There are no pleural effusions. There are no discrete noncalcified pulm onary nodules. Chronic degenerative spine changes are present with numerous old healed left rib fract ures.. IMPRESSION: DIFFUSE PULMONARY CHANGES OF COPD. NO ACUTE PULMONARY CHANGE.
--- NOTE | 2023-02-18 12:05 | ECG_ITS ---
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 Measurements Intervals [place] Rate: 111 P: 87 WV: 129 QRS: 83 QRSD: 76 T: 74 QT: 334 QTc: 454 Interpretive Statements SINUS TACHYCARDIA RIGHT ATRIAL ENLARGEMENT [0.3mV P-WAVE] LEFT ATRIAL ENLARGEMENT [-0.15mV P-WAVE IN V1/V2] POSSIBLE RIGHT VENTRICULAR CONDUCTION DELAY [RSR (QR) IN V1/V2] POSSIBLE ANTERIOR MYOCARDIAL INFARCTION , OF INDETERMINATE AGE [30 ms Q WAVE IN V3/V4, OR R < 0.2 mV IN V4] Compared to ECG 01/25/2023 10:17:44 Short WV interval no longer present Indeterminate axis no longer present Myocardial infarct finding still present Electronically Signed On 02-18-2023 16:45:57 CDT by Connie Lopez M.D. [email or web address]
[2023-02-18 12:35] LABS: Influenza A by IFA negative (Negative); Influenza B by IFA negative (Negative)
[2023-02-18 12:43] LABS: Base Excess VBG 9.9 mmol/L (-3.0-3.0); Blood Gas Operator Identificat CAK; Blood Gas Sample Type Venous; HCO3 VBG 38.2 mmol/L (24-28); Oxygen Device NC; PO2 VBG 32.7 mmHg (25-40); Venous Blood Gas Hematocrit 43.4 % (37-47); pH VBG 7.36 (7.32-7.42)
[2023-02-18 12:44] LABS: PCO2 VBG 67.3 mmHg (41-51)
--- NOTE | 2023-02-18 12:51 | PC.PHAR ---
pt states lately she has been taking care of her own medications-pt states she has been out of her xanax for about 4-5 days xanax 0.5mg bid prn rx filled 01/27/23 5d/s from pt states she has rx from her pcp also but states her insurance wouldnt pay for it-pt states she uses all the inhalers that are entered-pt states she stop taking propranolol 10mg daily ext shows last filled 12/17/22 30d/s-pt and gwendolyn king states the pts epipen is on backorder-pt was on a titrating dose of prednisone 20mg 60mg daily x3 days,then 40mg daily x3 days 20mg daily x3 days then 10mg daily for 4 days filled 01/27/23 13d/s then another rx for prednisone 5mg 15mg daily x3 days,10mg daily x3 days and 5mg daily for 3 days filled on 02/08/23 9d/s pt states she doubled up and made it like a 4 day supply states been out of them for a while-notes are made in the pharmacy comments
[2023-02-18 12:53] LABS: Basophils % 0.3 %; Eosinophils # 0.1 10^3/uL (0.0-0.8); Eosinophils % 1.2 %; Hematocrit 44.8 % (36-47); Lymphocytes # 1.2 10^3/uL (0.8-4.8); Lymphocytes % 13.5 %; Mean Corpuscular HGB Conc 30.4 g/dL (30-55); Mean Corpuscular Hemoglobin 29.8 pg (27-33); Mean Corpuscular Volume 98.2 fl (85-98); Mean Platelet Volume 9.4 fL (7.4-10.4); Monocytes # 0.4 10^3/uL (0.2-0.9); Monocytes % 4.3 %; Neutrophils # 7.09 10^3/uL (1.8-7.7); Neutrophils % 80.5 %; Nucleated Red Blood Cells % 0 %; Platelet Count 213 10^3/cmm (157-399); Red Blood Count 4.56 10^6/uL (3.85-5.65); Red Cell Distribution Width 12.7 % (12.1-15.1); White Blood Count 8.82 10^3/uL (3.29-11.43)
[2023-02-18 13:30] LABS: Alanine Aminotransferase 13 U/L (0-33); Albumin Level 3.8 g/dL (3.5-5.2); Alkaline Phosphatase 84 U/L (35-105); Anion Gap 12.1 (5-19); Aspartate Amino Transferase 10 U/L (0-32); Blood Urea Nitrogen 7 mg/dL (6-20); Calcium 9.2 mg/dL (8.5-10.5); Carbon Dioxide 34 mmol/L (22-29); Chloride 99 mmol/L (98-107); Globulin 2.5 g/dL (1.3-4.6); Glomerular Filtration Rate 237.4 mL/min (90-130); Glucose 129 mg/dL (65-115); Magnesium 1.9 mg/dL (1.7-2.3); NT Pro B Type Natriuretic Pept 79 pg/mL (0-125); Osmolality Calculated 292 mOsm/kg (285-295); Potassium 4.1 mmol/L (3.5-5.1); Sodium 141 mmol/L (136-145); Total Bilirubin 0.2 mg/dL (0.15-1.2); Total Protein 6.3 g/dL (6.6-8.7)
[2023-02-18] MEDS: albuterol 2.5 mg/3 mL Neb 10 MG INHALATION (14:03)
--- NOTE | 2023-02-18 14:16 | W.ED.SOB ---
HPI - SOB/Dyspnea General: Chief Complaint: Shortness of Breath/Dyspnea Stated Complaint: SOB, COPD Time Seen by Provider: 02/18/23 11:52 History of Present Illness: HPI Narrative: 48-year-old female presents emergency department complaints of increased shortness of breath worsening over the previous 3 days. Patient states that she has a longstanding history of end-stage COPD and was hospitalized approximately 2 weeks ago for pneumonia. She states over the last 3 days she is required continuous BiPAP at her home and she feels like she is having oxygen starvation still. She states she called EMS because she felt like she could not breathe they did provide her DuoNeb breathing treatment as well as terbutaline and 125 mg of Solu-Medrol in route to the hospital. The patient continues to have significant work of breathing with an oxygen saturation of 89 to 90% on 3 L nasal cannula upon initial presentation. Patient states she is continues to feel like she is struggling to breathe. She states she did smoke 2 puffs off of a cigarette yesterday. Review of Systems General: Reports: 10 or more systems reviewed and unremarkable except in HPI and below Const: Reports: fatigue and malaise Resp: Reports: dyspnea, non-productive cough and wheezing PFSH ED PFSH: Medical History Acute exacerbation of chronic obstructive airways disease Acute exacerbation of chronic obstructive airways disease COPD (chronic obstructive pulmonary disease) COPD exacerbation Nicotine dependence Respiratory failure with hypoxia and hypercapnia Social History Smoking and tobacco status: current every day smoker Physical Exam Const: COMMON NORMALS: patient oriented x3 GENERAL APPEARANCE: cooperative, in distress and anxious HENMT: COMMON NORMALS: normocephalic, atraumatic, hearing grossly normal bilaterally, external ears normal, EAC's normal, TM's normal bilaterally and Normal external nose present HEAD & SCALP: normocephalic and atraumatic NOSE: Normal external nose present EXTERNAL EAR: Yes external ears normal EXTERNAL AUDITORY CANAL: EAC's normal TYMPANIC MEMBRANE: TM's normal bilaterally Eye: COMMON NORMALS: Equal, round and reactive pupils present, EOMs intact bilaterally and conjunctivae normal CONJUNCTIVA: Yes conjunctivae normal PUPIL: Yes Equal, round and reactive pupils present Neck/C-Spine: COMMON NORMALS: full ROM and no meningeal signs Chest: COMMONS NORMALS: normal inspection of the chest and normal palpation of entire chest wall Resp: EFFORT & INSPECTION: Yes symmetric chest movement, Yes tachypneic, Yes respiratory distress, Yes pursed lip breathing, Yes audible wheezes and Yes tripod positioning Cardio: COMMON NORMALS: regular rhythm, S1 normal heart sound present and S2 normal heart sound present PALPATION: normal PMI RATE: tachycardic RHYTHM: regular rhythm HEART SOUNDS: S1 normal heart sound present, S2 normal heart sound present and Murmur heart sound present GI: COMMON NORMALS: Normal to inspection, nondistended, normoactive bowel sounds present, Soft to palpation, non-tender and No hepatosplenomegaly present PALPATION: Yes Soft to palpation and Yes No hepatosplenomegaly present : COMMON NORMALS: Yes no CVA tenderness BLADDER/KIDNEY EXAM: Yes no CVA tenderness Back/Pelvis: COMMON NORMALS: no CVA tenderness Extremity: COMMON NORMALS: normal to inspection, full ROM, capillary refill normal and no joint enlargement Neuro: COMMON NORMALS: patient oriented x3, moves all extremities and no focal motor deficits MENINGEAL SIGNS: Yes no meningeal signs Psych: MOOD & AFFECT: Yes anxious Skin: COMMON NORMALS: no rashes or lesions noted and no wounds GENERAL SKIN EXAM: no rashes or lesions noted Course Vital Signs: Vital signs: Vital Signs Pulse Rate 105 H 02/18/23 14:00 Respiratory Rate 18 02/18/23 14:00 Blood Pressure 108/77 02/18/23 13:30 Pulse Oximetry 95 02/18/23 14:00 Oxygen Delivery Me thod Nasal Cannula 02/18/23 14:00 Oxygen Flow Rate 2 02/18/23 14:00 MDM - SOB/Dyspnea Medical Decision Making 48-year-old female presents via EMS with severe COPD exacerbation. Patient appears very anxious. We will obtain laboratory evaluation as well as radiographic examination she states she was here approximately 2 week ago I did review her previous medical record and laboratory evaluation. EMS provided DuoNeb breathing treatment as well as Solu-Medrol and terbutaline I will do an hour-long albuterol treatment given the patient's worsening dyspnea and recent hospitalization I have contacted the hospitalist physician for admission to the hospital for additional evaluation treatment and care. Medical Records I reviewed the patient's medical records. Lab Data I reviewed the patient's lab results. 02/18/23 12:40 02/18/23 12:40 Labs/Radiology: Laboratory Results WBC 8.82 10^3/uL (3.29-11.43) 02/18/23 12:40 RBC 4.56 10^6/uL (3.85-5.65) 02/18/23 12:40 Hgb 13.60 g/dL (11.27-16.99) 02/18/23 12:40 Hct 44.8 % (36-47) 02/18/23 12:40 MCV 98.2 fl (85-98) H 02/18/23 12:40 MCH 29.8 pg (27-33) 02/18/23 12:40 MCHC 30.4 g/dL (30-55) 02/18/23 12:40 RDW 12.7 % (12.1-15.1) 02/18/23 12:40 Plt Count 213 10^3/cmm (157-399) 02/18/23 12:40 MPV 9.4 fL (7.4-10.4) 02/18/23 12:40 Neut % (Auto) 80.5 % 02/18/23 12:40 Lymph % (Auto) 13.5 % 02/18/23 12:40 Fisher % (Auto) 4.3 % 02/18/23 12:40 Eos % (Auto) 1.2 % 02/18/23 12:40 Baso % (Auto) 0.3 % 02/18/23 12:40 Neut # (Auto) 7.09 10^3/uL (1.8-7.7) 02/18/23 12:40 Lymph # (Auto) 1.2 10^3/uL (0.8-4.8) 02/18/23 12:40 Fisher # (Auto) 0.4 10^3/uL (0.2-0.9) 02/18/23 12:40 Eos # (Auto) 0.1 10^3/uL (0.0-0.8) 02/18/23 12:40 Baso # (Auto) 0.0 10^3/uL (0.0-0.1) 02/18/23 12:40 Nucleated RBC % (auto) 0 % 02/18/23 12:40 Nucleated RBCs # 0.0 /100WBC 02/18/23 12:40 PT 12.40 SECONDS (12.1-14.9) 02/18/23 12:40 INR 0.90 (0.8-1.2) 02/18/23 12:40 Specimen Type Venous 02/18/23 12:31 Jason Test N/a 02/18/23 12:31 VBG pH 7.36 (7.32-7.42) 02/18/23 12:31 VBG pCO2 67.3 mmHg (41-51) H* 02/18/23 12:31 VBG pO2 32.7 mmHg (25-40) 02/18/23 12:31 VBG HCO3 38.2 mmol/L (24-28) H 02/18/23 12:31 VBG Base Excess 9.9 mmol/L (-3.0-3.0) H 02/18/23 12:31 VBG Hematocrit 43.4 % (37-47) 02/18/23 12:31 O2 Delivery Device Nc 02/18/23 12:31 O2 Liters/Min 2.0 % 02/18/23 12:31 FiO2 28.0 % 02/18/23 12:31 Line Haul Owner Operator ID Cak 02/18/23 12:31 Sodium 141 mmol/L (136-145) 02/18/23 12:40 Potassium 4.1 mmol/L (3.5-5.1) 02/18/23 12:40 Chloride 99 mmol/L (98-107) 02/18/23 12:40 Carbon Dioxide 34 mmol/L (22-29) H 02/18/23 12:40 Anion Gap 12.1 (5-19) 02/18/23 12:40 BUN 7 mg/dL (6-20) 02/18/23 12:40 Creatinine 0.3 mg/dL (0.5-0.9) L 02/18/23 12:40 GFR Calculation 237.4 mL/min (90-130) H 02/18/23 12:40 Glucose 129 mg/dL (65-115) H 02/18/23 12:40 Calculated Osmolality 292 mOsm/kg (285-295) 02/18/23 12:40 Lactic Acid 1.0 mmol/L (0.5-2.2) 02/18/23 12:40 Calcium 9.2 mg/dL (8.5-10.5) 02/18/23 12:40 Magnesium 1.9 mg/dL (1.7-2.3) 02/18/23 12:40 Total Bilirubin 0.2 mg/dL (0.15-1.2) 02/18/23 12:40 AST 10 U/L (0-32) 02/18/23 12:40 ALT 13 U/L (0-33) 02/18/23 12:40 Alkaline Phosphatase 84 U/L (35-105) 02/18/23 12:40 NT-Pro-B Natriuret Pep 79 pg/mL (0-125) 02/18/23 12:40 Total Protein 6.3 g/dL (6.6-8.7) L 02/18/23 12:40 Albumin 3.8 g/dL (3.5-5.2) 02/18/23 12:40 Globulin 2.5 g/dL (1.3-4.6) 02/18/23 12:40 Influenza Type A Ag negative (Negative) 02/18/23 12:11 Influenza Type B Ag negative (Negative) 02/18/23 12:11 XR interpretation done by ED provider, pending radiology final review Discharge Plan Discharge Patient Disposition: Admitted As Inpatient Clinical Impression: COPD (chronic obstructive pulmonary disease) Condition: Stable Prescriptions: No Action levalbuterol HCl 0.63 mg/3 mL solution for nebulization 0.63 mg inhalation TID Qty: 270 6RF ipratropium-albuterol 0.5 mg-3 mg(2.5 mg base)/3 mL Solution For Nebulization 3 ml INHALATION Q8H PRN (Reason: Shortness Of Breath) budesonide-formoterol [Symbicort] 160-4.5 mcg/actuation Hfa Aerosol Inhaler 2 puff INHALATION BID Spiriva Respimat 2.5 mcg/actuation mist 2 inh inhalation DAILY Qty: 4 5RF alprazolam [Xanax] 0.5 mg tablet 0.5 mg PO BID PRN (Reason: anxiety) Qty: 10 0RF [place] See Rx Instructions .ROUTE .COMPLEX Rx Instructions: uses daily on legs EpiPen 2-Deondre 0.3 mg/0.3 mL Auto-Injector See Rx Instructions .ROUTE .COMPLEX Rx Instructions: as directed Singulair 10 mg tablet 10 mg PO QAM Xopenex HFA 45 mcg/actuation HFA aerosol inhaler 1 puff inhalation Q6H PRN (Reason: unknown) Referrals: Nurys Brooks DO [Primary Care Provider] - Coding Level of Care Code ED Portable Grinding Machine Operator for [facility]
--- NOTE | 2023-02-18 14:29 | PC.RESP ---
resp. informed about AVAPS dependent. stated he will let admit put the order in.
[2023-02-18] MEDS: acetaminophen 325 mg Tablet 650 MG PO (16:44)
--- NOTE | 2023-02-18 17:03 | P.HP_ITS ---
Providers/Chief Complaint Admitting Physician: Margarita Briceno MD Primary Care Provider: Nurys Brooks DO Chief Complaint: SOB, COPD History of Present Illness Rebekah Gabriel is a 48 year old female past medical history of chronic hypoxic respiratory failure due to COPD on chronically 2 to 3 L of oxygen, anxiety presents to the ER today because of difficulty in breathing which has been getting worse over last 2-3 days.? Patient has had multiple admissions within the last 3 months because of COPD exacerbation.?She has been using Bipap at home withotu relief. in the ER noted to have tachypne aand increased work of breathing necessitating admission today. no fever, chills or increased cough Review of Systems General: Reports: 10 or more systems reviewed and unremarkable except in HPI and below Const: Denies: fever(s), chills or body aches Eyes: Denies: change in vision, blurry vision or photophobia ENMT: Reports: hoarseness; Denies: throat pain, enlarged tonsils, odynophagia or nasal congestion Card: Denies: chest pain, palpitations, irregular heart rhythm, edema, swelling of feet/ankles, lightheadedness, pre-syncope, dyspnea on exertion or orthopnea Resp: Denies: dyspnea, productive cough, non-productive cough, wheezing, stridor, pain on inspiration, change in phlegm color, hemoptysis or chest congestion GI: Denies: abdominal pain, nausea, vomiting, hematemesis, coffee ground emesis, dysphagia, heartburn, diarrhea, constipation, GI cramping, change in stool character, hematochezia or melena : Denies: flank pain, difficulty voiding, dysuria, urinary frequency, u rinary urgency, urinary hesitancy or hematuria Musc: Denies: neck pain, back pain, extremity pain, joint swelling, joint warmth or deformity Neuro: Denies: headache(s), numbness in extremities, weakness in extremities, sensory changes, difficulty walking, frequent falls, dizziness, vertigo, behavioral changes, Slurred speech present or seizure-like activity Psych: Denies: anxiety, depression, suicidal ideation or homicidal ideation Endo: Denies: polyuria, polydipsia, tired all the time, cold intolerance or hot flashes K[place]hawn/Lymph: Denies: easy bruising or easy bleeding Medications/Allergies Home Medications Medication Instructions Recorded Confirmed Last Taken Type ipratropium 0.5 mg-albuterol 3 mg 3 ml inhalation Q8H PRN Shortness 09/26/22 02/18/23 Unknown History (2.5 mg base)/3 mL nebulization Of Breath soln budesonide-formoterol HFA 160 2 puff inhalation BID 10/04/22 02/18/23 10/19/22 History mcg-4.5 mcg/actuation aerosol inhaler (Symbicort) tiotropium bromide 2.5 2 inh inhalation DAILY #4 grams 10/06/22 02/18/23 10/19/22 Rx mcg/actuation mist for inhalation (Spiriva Respimat) alprazolam 0.5 mg tablet (Xanax) 0.5 mg PO BID PRN anxiety #10 tabs 01/27/23 02/18/23 4 Days Ago Rx ~02/14/23 pt states out levalbuterol HCl 0.63 mg/3 mL 0.63 mg (3 mL) inhalation TID #270 02/13/23 02/18/23 02/18/23 Rx solution for nebulization mL [place] See Rx Instructions .Route .COMPLEX 02/18/23 02/18/23 Unknown History epinephrine 0.3 mg/0.3 mL See Rx Instructions .Route .COMPLEX 02/18/23 02/18/23 Unknown History injection, auto-injector (EpiPen 2-Deondre) levalbuterol tartrate 45 1 puff inhalation Q6H PRN unknown 02/18/23 02/18/23 Unknown History mcg/actuation aerosol inhaler (Xopenex HFA) montelukast 10 mg tablet 10 mg PO QAM 02/18/23 02/18/23 02/18/23 History (Singulair) Allergies Allergy/AdvReac Type Severity Reaction Status Date / Time levofloxacin [From Levaquin] Allergy Unknown Verified 02/18/23 12:06 Penicillins Allergy Unknown Verified 02/18/23 12:06 Sulfa (Sulfonamide Allergy Unknown Verified 02/18/23 12:06 Antibiotics) PFSH Acute PFSH: Medical History Acute exacerbation of chronic obstructive airways disease Acute exacerbation of chronic obstructive airways disease COPD (chronic obstructive pulmonary disease) COPD exacerbation Nicotine dependence Respiratory failure with hypoxia and hypercapnia Social History Smoking and tobacco status: current every day smoker Vitals/I&O/Wt Last Vital Signs Temp 97.7 F 02/18/23 15:39 Pulse 88 02/18/23 15:39 Resp 20 H 02/18/23 15:39 BP 108/72 02/18/23 15:39 Pulse Ox 94 02/18/23 15:39 O2 Del Method Nasal Cannula 02/18/23 15:39 O2 Flow Rate 2 02/18/23 14:00 Weight last 48 hrs Weight 58.967 kg Physical Exam Narrative: General: tachypneic, anxious, oriented x 3 HEENT: PERRLA, pupils bilaterally equal and reactive, pallors not present Chest: wheezing B/L CVS: S1-S2 regular, no murmurs, no tachycardia, no gallops, no rubs Abdomen: Soft, nontender, no organomegaly, bowel sounds present Neuro: No focal deficits, no facial deformity, AO x3, power 5/5 in all limbs Data 02/18/23 12:40 02/18/23 12:40 Micro: Microbiology 02/18/23 12:31 Blood Culture - Preliminary Blood SPECIMEN COLLECTED 02/18/23 12:40 Blood Culture - Preliminary Blood SPECIMEN COLLECTED ABG Interpretation 1: 02/18/23 12:31 VBG pH 7.36 VBG pCO2 67.3 H* VBG pO2 32.7 VBG HCO3 38.2 H VBG Base Excess 9.9 H My Interpretation: FINDINGS: There are scattered perihilar granulomatous calcifications. There are chronically increased perihilar /basilar bronchovascular and interstitial thickening with hyperinflation.? The cardiac and mediastinal outlines are unremarkable. There are no pleural effusions. There are no discrete noncalcified pulmonary nodules. Chronic degenerative spine changes are present with numerous old healed left rib fractures.. IMPRESSION: DIFFUSE PULMONARY CHANGES OF COPD. NO ACUTE PULMONARY CHANGE. A&P Assessment and plan (1) Acute exacerbation of chronic obstructive airways disease: (2) Acute on chronic respiratory failure with hypoxia and hypercapnia: Attestations Medical Necessity Statement*: Admit in view of acute on chronic COPD exacerbation Appreciate ABG. BiPAP nightly and prn, may need AVAPS mode as on previous admisson Dexamethasone 6mg IVP daily duoneb q6h, budesonide q12h scheduled nebulization screen with D dimer , if elevated to proceed with CTA for PE CXR without consolidation Coding Level of Care Code Acute Code for Chg Fwd Moderate MDM includes number and complexity of problems actively addressed during encounter, amount and/or complexity of data reviewed/ordered and described risk of complication, morbidity or mortality of management as documented Diagnoses Acute exacerbation of chronic obstructive airways disease J44.1 Acute on chronic respiratory failure with hypoxia and hypercapnia J96.21; J96.22
[2023-02-18 17:47] LABS: D Dimer <= 0.27 ug/mLFEU (0-0.59)
[2023-02-18] MEDS: dexamethasone 4 mg/mL INJ 6 MG IVP (18:12)
[2023-02-18] MEDS: mupirocin oint 22 gm 1 APPLIC TOPICAL (18:13)
[2023-02-18] MEDS: ALPRAZolam 0.5 mg Tablet PO (19:50)
[2023-02-18] MEDS: budesonide 0.5 mg/2 mL Neb INHALATION (20:00)
[2023-02-18] MEDS: ipratropium-albuterol 3 mL Neb INHALATION (20:01)
[2023-02-18 20:18] LABS: Adenovirus Not Detected (NOT DETECT); Chlamydia Pneumoniae Not Detected (NOT DETECT); Coronavirus 229E,HKU1,NL63,OC4 Not Detected (NOT DETECT); Human Metapneumovirus Not Detected (NOT DETECT); Human Rhinovirus/Enterovirus Not Detected (NOT DETECT); Influenza A Not Detected (NOT DETECT); Influenza A H1 Not Detected (NOT DETECT); Influenza A H1-2009 Not Detected (NOT DETECT); Influenza A H3 Not Detected (NOT DETECT); Influenza B Not Detected (NOT DETECT); Mycoplasma Pneumoniae Not Detected (NOT DETECT); Parainfluenza Virus Type 1 Not Detected (NOT DETECT); Parainfluenza Virus Type 2 Not Detected (NOT DETECT); Parainfluenza Virus Type 3 Not Detected (NOT DETECT); Parainfluenza Virus Type 4 Not Detected (NOT DETECT); Respiratory Syncytial Virus A Not Detected (NOT DETECT); Respiratory Syncytial Virus B Not Detected (NOT DETECT); SARS-COV-2 Not Detected (NOT DETECT)
[2023-02-19] VITALS (10 sets, daily range): BP systolic 110–133; BP diastolic 61–83; PULSE 63–104; RESP 16–28; TEMP 36.6–36.9; O2SAT 97–100
[2023-02-19] MEDS: ipratropium-albuterol 3 mL Neb INHALATION ×2 (02:53→07:17)
[2023-02-19 05:46] LABS: Hematocrit 43.2 % (36-47); Lymphocytes # 0.5 10^3/uL (0.8-4.8); Lymphocytes % 5.2 %; Mean Corpuscular HGB Conc 30.6 g/dL (30-55); Mean Corpuscular Hemoglobin 29.7 pg (27-33); Mean Corpuscular Volume 97.1 fl (85-98); Mean Platelet Volume 9.8 fL (7.4-10.4); Monocytes # 0.4 10^3/uL (0.2-0.9); Monocytes % 4.3 %; Neutrophils # 8.21 10^3/uL (1.8-7.7); Neutrophils % 90.2 %; Nucleated Red Blood Cells % 0 %; Platelet Count 241 10^3/cmm (157-399); Red Blood Count 4.45 10^6/uL (3.85-5.65); Red Cell Distribution Width 12.5 % (12.1-15.1)
[2023-02-19 06:10] LABS: Alanine Aminotransferase 12 U/L (0-33); Albumin Level 3.9 g/dL (3.5-5.2); Alkaline Phosphatase 84 U/L (35-105); Blood Urea Nitrogen 14 mg/dL (6-20); Calcium 9.3 mg/dL (8.5-10.5); Carbon Dioxide 30 mmol/L (22-29); Chloride 99 mmol/L (98-107); Glomerular Filtration Rate 131.7 mL/min (90-130); Glucose 128 mg/dL (65-115); Osmolality Calculated 292 mOsm/kg (285-295); Sodium 140 mmol/L (136-145); Total Bilirubin 0.2 mg/dL (0.15-1.2); Total Protein 5.9 g/dL (6.6-8.7)
[2023-02-19 06:16] LABS: Anion Gap 15.9 (5-19); Aspartate Amino Transferase 10 U/L (0-32); Potassium 4.9 mmol/L (3.5-5.1)
[2023-02-19] MEDS: budesonide 0.5 mg/2 mL Neb INHALATION (07:17)
[2023-02-19] MEDS: pantoprazole DR 40 mg Tablet PO (08:26)
[2023-02-19] MEDS: ALPRAZolam 0.5 mg Tablet PO (08:26)
[2023-02-19] MEDS: mupirocin oint 22 gm 1 APPLIC TOPICAL (08:31)
--- NOTE | 2023-02-19 10:06 | PC.CHAP ---
Pastoral Care Encounter/Spiritual Assessment Type of Contact [] Declined jail guard visit [] Patient/Family/Request visit [] Outpatient visit [] Follow-up visit [] Physician referral [] Code/Alert [x] Routine visit [] Staff referral [] Actively dying [] Patient sleeping [] Family support [] [] Out of room [] Palliative care [] [] Receiving care in room [] Pre-surgical visit [] Trauma [] Long length of stay [] ICU visit [] Other: Relational/Emotional Strength [] Patient feels connected with others/family/visitors/staff [x] Distress [x] Loneliness/isolation [] Abandonment Spirituality of Patient [] Person of [place] [] Attends Caodaism of their [place] [x] Believes in Prayer [] Reads Bible or Restorationism materials [x] There are Spiritual issues to be addressed Hot Head Machine Operator Interventions [x] Prayer [x] Active listening [] Non-anxious presence [x] Spiritual/emotional support [] Crisis/trauma care [x] Spiritual counseling [] Bereavement support [] Provided bereavement packet [] Provided Bible/devotional materials [] Provided toy/stuffed animal, coloring book to patient or family member [] Provided Communion [] Anointing/[place] [] Salvation [] Completed spiritual assessment [] Other: Impact on Illness or Injury [] Angry [] Fearful [] Anxious [] Often cries [] Exhaustion [] Unable to work [] Unable to attend episcopal [] Unable to walk/stand [] Unable to read [] Unable to drive [] Unable to eat/drink [] Unable to sleep [] Unable to be with family [] Patient intubated [] Other: Summary ms Welch is struggling with her spiritual condition. Prayed with her , Luz Valenzuela 5:13 I write these things to youwho believe in the name of the Son of God that YOU may KNOW that you have ETERNAL LIFE! Time spent with patient 15 min
[2023-02-19] MEDS: guaiFENesin 600 mg Tablet PO (12:05)
[2023-02-19] MEDS: acetaminophen 325 mg Tablet 650 MG PO (13:59)
--- NOTE | 2023-02-19 15:38 | PM.DCS ---
Discharge Providers Date of Admission: 02/18/23 15:02 Date of Discharge: February 19, 2023 Attending Provider at Admission: Margarita Briceno MD Attending Provider at Discharge: Margarita Briceno MD Primary Care Provider: Nurys Brooks DO Diagnoses at Discharge Discharge Diagnosis (1) Acute exacerbation of chronic obstructive airways disease: Status: Acute (2) Acute on chronic respiratory failure with hypoxia and hypercapnia: Status: Acute Reason for Visit Reason for Visit: SOB, COPD Hospital Course Hospital Course 48-year-old lady with COPD, recurrent hospitalizations, currently on 2 L oxygen, also has a BiPA/home vent, however, the settings have not been working for her and she had had trouble getting adjusted, was admitted for a shortness of breath. She was diagnosed with acute on chronic COPD exacerbation,treated with iv steroids, initially AVAPS support, oxygen support, breathing treatments, pulmonary toilet.? She has been transitioned to steroid taper. Additionally started on prednisone 5mg once daily once she completes the steroid taper until her follow-up with pulmonology. Patient has missed several scheduled appointments with pulmonology, states that her anxiety usually precludes her from getting out of the house. She states that she has felt better with Paxil before but has never been able to get a consistent prescription. She depressed related to her chronic illness. I have given her a prescription for paroxetine 10 mg daily, reinstructed to follow-up with her primary care physician in 2 weeks to assess for up titration of paroxetine dosing to optimize per response. Encouraged to keep next follow-up with pulmonology. She will be following up with her home [employer] company to work on settings for AVAPs. She feels much better and wishes to return home today. Incidentally she was noted to have a wound over the left treviño of her tibia which she says she sustained after her dog accidentally scratched her. Instructed to apply mupirocin and change daily dressing. Follow-up with primary care physician to ensure this is improving and does not turn into cellulitis. Physical Exam Narrative: General: No acute distress, AO x3, chroniocally ill appearing HEENT: PERRLA, pupils bilaterally equal and reactive, pallors not present Chest: Normal vesicular breath sounds, no added sounds, equal good air entry bilaterally CVS: S1-S2 regular, no murmurs, no tachycardia, no gallops, no rubs Abdomen: Soft, nontender, no organomegaly, bowel sounds present Neuro: No focal deficits, no facial deformity, AO x3, power 5/5 in all limbs Discharge Data Studies Completed and Pending Completed Studies During Hospitalization Category Date Time Status XR chest 1V portable [id number] Stat Exams 02/18/23 12:05 Completed Pending at discharge Category Date Time Status Blood Culture Stat Lab 02/18/23 12:31 Results Venous Blood Gas Stat Lab 02/18/23 12:31 Results Laboratory Results WBC 9.10 10^3/uL (3.29-11.43) 02/19/23 04:56 RBC 4.45 10^6/uL (3.85-5.65) 02/19/23 04:56 Hgb 13.20 g/dL (11.27-16.99) 02/19/23 04:56 Hct 43.2 % (36-47) 02/19/23 04:56 MCV 97.1 fl (85-98) 02/19/23 04:56 MCH 29.7 pg (27-33) 02/19/23 04:56 MCHC 30.6 g/dL (30-55) 02/19/23 04:56 RDW 12.5 % (12.1-15.1) 02/19/23 04:56 Plt Count 241 10^3/cmm (157-399) 02/19/23 04:56 MPV 9.8 fL (7.4-10.4) 02/19/23 04:56 Neut % (Auto) 90.2 % 02/19/23 04:56 Lymph % (Auto) 5.2 % 02/19/23 04:56 [place] % (Auto) 4.3 % 02/19/23 04:56 Eos % (Auto) 0.0 % 02/19/23 04:56 Baso % (Auto) 0.0 % 02/19/23 04:56 Neut # (Auto) 8.21 10^3/uL (1.8-7.7) H 02/19/23 04:56 Lymph # (Auto) 0.5 10^3/uL (0.8-4.8) L 02/19/23 04:56 [place] # (Auto) 0.4 10^3/uL (0.2-0.9) 02/19/23 04:56 Eos # (Auto) 0.0 10^3/uL (0.0-0.8) 02/19/23 04:56 Baso # (Auto) 0.0 10^3/uL (0.0-0.1) 02/19/23 04:56 Nucleated RBC % (auto) 0 % 02/19/23 04:56 Nucleated RBCs # 0.0 /100WBC 02/19/23 04:56 PT 12.40 SECONDS (12.1-14.9) 02/18/23 12:40 INR 0.90 (0.8-1.2) 02/18/23 12:40 D-Dimer <= 0.27 ug/mLFEU (0-0.59) 02/18/23 12:40 Specimen Type Venous 02/18/23 12:31 Jason Test N/a 02/18/23 12:31 VBG pH 7.36 (7.32-7.42) 02/18/23 12:31 VBG pCO2 67.3 mmHg (41-51) H* 02/18/23 12:31 VBG pO2 32.7 mmHg (25-40) 02/18/23 12:31 VBG HCO3 38.2 mmol/L (24-28) H 02/18/23 12:31 VBG Base Excess 9.9 mmol/L (-3.0-3.0) H 02/18/23 12:31 VBG Hematocrit 43.4 % (37-47) 02/18/23 12:31 O2 Delivery Device Nc 02/18/23 12:31 O2 Liters/Min 2.0 % 02/18/23 12:31 FiO2 28.0 % 02/18/23 12:31 Advertising Specialist ID Cak 02/18/23 12:31 Sodium 140 mmol/L (136-145) 02/19/23 04:56 Potassium 4.9 mmol/L (3.5-5.1) 02/19/23 04:56 Chloride 99 mmol/L (98-107) 02/19/23 04:56 Carbon Dioxide 30 mmol/L (22-29) H 02/19/23 04:56 Anion Gap 15.9 (5-19) 02/19/23 04:56 BUN 14 mg/dL (6-20) 02/19/23 04:56 Creatinine 0.5 mg/dL (0.5-0.9) 02/19/23 04:56 GFR Calculation 131.7 mL/min (90-130) H 02/19/23 04:56 Glucose 128 mg/dL (65-115) H 02/19/23 04:56 Calculated Osmolality 292 mOsm/kg (285-295) 02/19/23 04:56 Lactic Acid 1.0 mmol/L (0.5-2.2) 02/18/23 12:40 Calcium 9.3 mg/dL (8.5-10.5) 02/19/23 04:56 Magnesium 1.9 mg/dL (1.7-2.3) 02/18/23 12:40 Total Bilirubin 0.2 mg/dL (0.15-1.2) 02/19/23 04:56 AST 10 U/L (0-32) 02/19/23 04:56 ALT 12 U/L (0-33) 02/19/23 04:56 Alkaline Phosphatase 84 U/L (35-105) 02/19/23 04:56 NT-Pro-B Natriuret Pep 79 pg/mL (0-125) 02/18/23 12:40 Total Protein 5.9 g/dL (6.6-8.7) L 02/19/23 04:56 Albumin 3.9 g/dL (3.5-5.2) 02/19/23 04:56 Globulin 2.0 g/dL (1.3-4.6) 02/19/23 04:56 Nasal Influ A H1 2008 PCR Not detected (NOT DETECT) 02/18/23 18:10 Adenovirus (PCR) Not detected (NOT DETECT) 02/18/23 18:10 C. pneumoniae DNA (PCR) Not detected (NOT DETECT) 02/18/23 18:10 Coronavirus 229E (PCR) Not detected (NOT DETECT) 02/18/23 18:10 Human Metapneumovir PCR Not detected (NOT DETECT) 02/18/23 18:10 Influenza A (H1) PCR Not detected (NOT DETECT) 02/18/23 18:10 Influenza A (H3) PCR Not detected (NOT DETECT) 02/18/23 18:10 Influenza Type A Ag negative (Negative) 02/18/23 12:11 Influenza Type A (PCR) Not detected (NOT DETECT) 02/18/23 18:10 Influenza Type B Ag negative (Negative) 02/18/23 12:11 Influenza Type B (PCR) Not detected (NOT DETECT) 02/18/23 18:10 M. pneumoniae (PCR) Not detected (NOT DETECT) 02/18/23 18:10 Parainfluenza 1 (PCR) Not detected (NOT DETECT) 02/18/23 18:10 Parainfluenza 2 (PCR) Not detected (NOT DETECT) 02/18/23 18:10 Parainfluenza 3 (PCR) Not detected (NOT DETECT) 02/18/23 18:10 Parainfluenza 4 (PCR) Not detected (NOT DETECT) 02/18/23 18:10 RSV Type A (PCR) Not detected (NOT DETECT) 02/18/23 18:10 RSV Type B (PCR) Not detected (NOT DETECT) 02/18/23 18:10 Entero/Rhino (PCR) Not detected (NOT DETECT) 02/18/23 18:10 SARS-CoV-2 (PCR) Not detected (NOT DETECT) 02/18/23 18:10 Vitals Last Vital Signs Temp 98.2 F 02/19/23 12:00 Pulse 63 02/19/23 12:00 Resp 18 02/19/23 12:00 BP 121/81 02/19/23 12:00 Pulse Ox 97 02/19/23 12:00 O2 Del Method Nasal Cannula 02/19/23 07:17 O2 Flow Rate 2 02/19/23 08:31 FiO2 30 02/19/23 03:29 Discharge Plan Discharge Patient Disposition: Home Condition: Stable Prescriptions: New pantoprazole 40 mg Tablet,Delayed Release (Dr/Ec) 40 mg PO DAILY 30 Days Qty: 30 0RF prednisone 10 mg tablets,dose pack See Taper PO DAILY Qty: 48 0RF Taper: predniSONE 60-10 60 mg Daily for 2 Days and 0 Hour 50 mg Daily for 2 Days and 0 Hour 40 mg Daily for 2 Days and 0 Hour 30 mg Daily for 2 Days and 0 Hour 20 mg Daily for 2 Days and 0 Hour 10 mg Daily for 2 Days and 0 Hour Rx Instructions: orally; prednisone 5 mg tablet 5 mg PO DAILY Qty: 30 0RF Rx Instructions: take after you are done with taper prednisone Paxil 10 mg tablet 10 mg PO DAILY 30 Days Qty: 30 0RF mupirocin 2 % ointment 1 applic topical DAILY Qty: 22 0RF Continued levalbuterol HCl 0.63 mg/3 mL solution for nebulization 0.63 mg inhalation TID Qty: 270 6RF ipratropium-albuterol 0.5 mg-3 mg(2.5 mg base)/3 mL Solution For Nebulization 3 ml INHALATION Q8H PRN (Reason: Shortness Of Breath) budesonide-formoterol [Symbicort] 160-4.5 mcg/actuation Hfa Aerosol Inhaler 2 puff INHALATION BID Spiriva Respimat 2.5 mcg/actuation mist 2 inh inhalation DAILY Qty: 4 5RF [place] See Rx Instructions .ROUTE .COMPLEX Rx Instructions: uses daily on legs EpiPen 2-Deondre 0.3 mg/0.3 mL Auto-Injector See Rx Instructions .ROUTE .COMPLEX Rx Instructions: as directed Singulair 10 mg tablet 10 mg PO QAM Xopenex HFA 45 mcg/actuation HFA aerosol inhaler 1 puff inhalation Q6H PRN (Reason: unknown) Xanax 0.5 mg tablet 0.5 mg PO BID PRN (Reason: anxiety) 7 Days Qty: 14 0RF Discharge Orders: Discharge Order (Routine); Ordered 02/19/23 Ordered By: Margarita Briceno Referrals: DatarJd MD [Physician] - 2 weeks (advanced COPD We have notified your physician's clinic of the need for a follow-up appointment to be scheduled. If you have not heard from them within the next 2 business days, please call them directly. You may also reach out to our supply manager at [phone] and she can assist you. faxed for appointment) Nurys Brooks DO [Primary Care Provider] - 02/20/23 11:20 am Discharge Diet: Usual diet Discharge Activity: Resume usual activity Patient Instructions: COPD, Prednisone (By mouth), Paroxetine (By mouth), Pantoprazole (By mouth), Pneumonia (GEN), COPD Stoplight, Opioid Safety, Pneumonia Stoplight Discharge Attestations Time Spent in Discharge Care*: greater than 30 min Quality Metrics Clinical Quality Measures [ No reported AMI, CVA or VTE this stay] Coding Level of Care Code Acute Code for Chg Fwd Diagnoses Acute exacerbation of chronic obstructive airways disease J44.1 Acute on chronic respiratory failure with hypoxia and hypercapnia J96.21; J96.22
== END 2023-02-19 16:45 | disposition home or self-care (01) | DRG 190 ==
LOC: ER 14:26 → MEDSURG 15:02
PROVIDERS: Admitting Provider Student in an Organized Health Care Education/Training Program; Emergency Provider Internal Medicine; PCP Family Medicine; Visit Provider Student in an Organized Health Care Education/Training Program
DX: J44.1 Chronic obstructive pulmonary disease with (acute) exacerbation (principal); J96.21 Acute and chronic respiratory failure with hypoxia; J96.22 Acute and chronic respiratory failure with hypercapnia; Z11.52 Encounter for screening for COVID-19; Z99.89 Dependence on other enabling machines and devices; F41.9 Anxiety disorder, unspecified; S81.802A Unspecified open wound, left lower leg, initial encounter; X58.XXXA Exposure to other specified factors, initial encounter; Z99.81 Dependence on supplemental oxygen; F17.200 Nicotine dependence, unspecified, uncomplicated
CPT/HCPCS: 36415; 71045; 80053; 82803; 83605; 83735; 83880; 85025; 85378; 85610; 87040; 87486; 87581; 87633; 87804; 93005; 94640; 94660; 99285; J1100; J7613; J7626

== ENCOUNTER 2023-03-07 10:36 | Emergency (ER) | payer MEDICAID, SELFPAY ==
[2023-03-07] VITALS (8 sets, daily range): BP systolic 99–140; BP diastolic 73–89; PULSE 90–101; RESP 16–28; TEMP 36.8; O2SAT 92–100; BMI 27.4
--- NOTE | 2023-03-07 10:42 | XRR_ITS ---
PROCEDURE INFORMATION: Exam: XR Chest Exam date and time: 03/07/2023 11:08 AM Age: 48 years old Clinical indication: Cough and dyspnea; Additional info: Dyspnea/cough TECHNIQUE: Imaging protocol: Radiologic exam of the chest. Views: 1 view. COMPARISON: CR XR chest 1V portable [id number] 02/18/2023 12:09 PM FINDINGS: Lungs: Calcified granuloma right midlung. Pleural spaces: Unremarkable. No pleural effusion. No pneumothorax. Heart/Mediastinum: Unremarkable. No cardiomegaly. Bones/joints: Unremarkable. XR/XR chest 1V portable [id number] IMPRESSION: Healed granulomatous disease. No acute process
--- NOTE | 2023-03-07 10:42 | W.ED.SOB ---
HPI - SOB/Dyspnea General: Chief Complaint: Shortness of Breath/Dyspnea Stated Complaint: resp distress Time Seen by Provider: 03/07/23 10:41 Source: patient Mode of arrival: EMS History of Present Illness: HPI Narrative: 48-year-old female presents emergency room short of breath. She evidently is on hospice at home for end-stage COPD she is normally on 2 L/min she is confused and disoriented unable to give any history there is no family at the bedside. MD elicited complaint: shortness of breath and cough Pertinent past history: COPD Review of Systems General: Reports: ROS unobtainable due to mental status [facility] ED PFSH: Medical History COPD (chronic obstructive pulmonary disease) Nicotine dependence Respiratory failure with hypoxia and hypercapnia Social History Smoking and tobacco/nicotine status: current every day tobacco/nicotine user Physical Exam Const: ORIENTATION/CONSCIOUSNESS: Yes awake HENMT: COMMON NORMALS: normocephalic, atraumatic and hearing grossly normal bilaterally HEAD & SCALP: normocephalic and atraumatic Resp: EFFORT & INSPECTION: Yes uses accessory muscles AUSCULTATION: rhonchi and wheezes Cardio: COMMON NORMALS: regular rate, regular rhythm and No murmurs present (Cardio) RATE: regular rate RHYTHM: regular rhythm GI: COMMON NORMALS: Soft to palpation and No hepatosplenomegaly present AUSCULTATION: Yes normoactive bowel sounds PALPATION: Yes Soft to palpation, No Tenderness to palpation present (GI), No Guarding due to palpation present (GI) and Yes No hepatosplenomegaly present Extremity: COMMON NORMALS: normal to inspection, capillary refill normal, no clubbing, cyanosis or edema, no calf tenderness and no pedal edema Skin: COMMON NORMALS: no rashes or lesions noted GENERAL SKIN EXAM: no rashes or lesions noted Course Vital Signs: Vital signs: Vital Signs Temperature 98.2 F 03/07/23 10:39 Pulse Rate 91 03/07/23 13:30 Respiratory Rate 22 H 03/07/23 11:00 Blood Pressure 140/89 03/07/23 12:30 Pulse Oximetry 97 03/07/23 16:14 Oxygen Delivery Me thod Nasal Cannula 03/07/23 13:30 Oxygen Flow Rate 6 03/07/23 13:30 Fraction of Inspir ed Oxygen 30 03/07/23 11:23 MDM - SOB/Dyspnea Medical Decision Making Patient initially placed on BiPAP. She is hypercapnic on her blood gas with pH 7-7 and PCO2 of 106 she is hypoxic as well as she did improve with supportive BiPAP her work of breathing was significant as well. No acute findings on chest x-ray. Discussed with hospitalist admit for acute on chronic hypercapnic respiratory failure with hypoxia. Differential Diagnosis Likely acute exacerbation of chronic obstructive airways disease Medical Records I reviewed the patient's medical records. Lab Data I reviewed the patient's lab results. 03/07/23 11:05 03/07/23 11:05 Labs/Radiology: Radiology Impressions Chest X-Ray 03/07/23 10:42 IMPRESSION: Healed granulomatous disease. No acute process Laboratory Results WBC 14.97 10^3/uL (3.29-11.43) H 03/07/23 11:05 RBC 4.12 10^6/uL (3.85-5.65) 03/07/23 11:05 Hgb 12.30 g/dL (11.27-16.99) 03/07/23 11:05 Hct 42.4 % (36-47) 03/07/23 11:05 MCV 102.9 fl (85-98) H 03/07/23 11:05 MCH 29.9 pg (27-33) 03/07/23 11:05 MCHC 29.0 g/dL (30-55) L 03/07/23 11:05 RDW 12.9 % (12.1-15.1) 03/07/23 11:05 Plt Count 189 10^3/cmm (157-399) 03/07/23 11:05 MPV 9.3 fL (7.4-10.4) 03/07/23 11:05 Neut % (Auto) 88.6 % 03/07/23 11:05 Lymph % (Auto) 5.5 % 03/07/23 11:05 [place] % (Auto) 5.3 % 03/07/23 11:05 Eos % (Auto) 0.1 % 03/07/23 11:05 Baso % (Auto) 0.2 % 03/07/23 11:05 Neut # (Auto) 13.25 10^3/uL (1.8-7.7) H 03/07/23 11:05 Lymph # (Auto) 0.8 10^3/uL (0.8-4.8) 03/07/23 11:05 [place] # (Auto) 0.8 10^3/uL (0.2-0.9) 03/07/23 11:05 Eos # (Auto) 0.0 10^3/uL (0.0-0.8) 03/07/23 11:05 Baso # (Auto) 0.0 10^3/uL (0.0-0.1) 03/07/23 11:05 Nucleated RBC % (auto) 0 % 03/07/23 11:05 Nucleated RBCs # 0.0 /100WBC 03/07/23 11:05 Specimen Type Arterial 03/07/23 10:49 Sample Site Brachial, left 03/07/23 10:49 ABG pH 7.27 (7.35-7.45) L 03/07/23 10:49 ABG pCO2 106.0 mmHg (35-45) H* 03/07/23 10:49 ABG pO2 59.2 mmHg (80.0-100.0) L 03/07/23 10:49 ABG HCO3 49.3 mmol/L (22-26) H 03/07/23 10:49 ABG O2 Saturation 91.1 03/07/23 10:49 ABG Base Excess 17.1 mmol/L (-2.0-2.0) H 03/07/23 10:49 Jason Test Pos 03/07/23 10:49 A-a O2 Gradient 5.5 mmHg (5-10) 03/07/23 10:49 Hematocrit 41.3 % (37-47) 03/07/23 10:49 Hgb O2 Saturation 88.0 % (95-100) L 03/07/23 10:49 Carboxyhemoglobin 2.8 %THgb (0.4-20.1) 03/07/23 10:49 Methemoglobin 0.6 % (0.4-1.5) 03/07/23 10:49 Total Hemoglobin 13.5 g/dL (12-16) 03/07/23 10:49 Sodium 137.0 mmol/L (131-143) 03/07/23 10:49 Potassium 4.6 mmol/L (3.5-5.0) 03/07/23 10:49 Glucose 110.0 mg/dL (70-115) 03/07/23 10:49 Ionized Calcium 1.2 mmol/L (1.1-1.4) 03/07/23 10:49 O2 Delivery Device Nc 03/07/23 10:49 O2 Liters/Min 3.0 % 03/07/23 10:49 FiO2 32.0 % 03/07/23 10:49 Kindergarten Tutor ID Cak 03/07/23 10:49 Sodium 138 mmol/L (136-145) 03/07/23 11:05 Potassium 4.8 mmol/L (3.5-5.1) 03/07/23 11:05 Chloride 90 mmol/L (98-107) L 03/07/23 11:05 Carbon Dioxide 45 mmol/L (22-29) H* 03/07/23 11:05 Anion Gap 7.8 (5-19) 03/07/23 11:05 BUN 12 mg/dL (6-20) 03/07/23 11:05 Creatinine 0.2 mg/dL (0.5-0.9) L 03/07/23 11:05 GFR Calculation 379.1 mL/min (90-130) H 03/07/23 11:05 Glucose 120 mg/dL (65-115) H 03/07/23 11:05 Calculated Osmolality 287 mOsm/kg (285-295) 03/07/23 11:05 Calcium 9.0 mg/dL (8.5-10.5) 03/07/23 11:05 Total Bilirubin 0.4 mg/dL (0.15-1.2) 03/07/23 11:05 AST 13 U/L (0-32) 03/07/23 11:05 ALT 19 U/L (0-33) 03/07/23 11:05 Alkaline Phosphatase 69 U/L (35-105) 03/07/23 11:05 Total Protein 6.1 g/dL (6.6-8.7) L 03/07/23 11:05 Albumin 3.8 g/dL (3.5-5.2) 03/07/23 11:05 Globulin 2.3 g/dL (1.3-4.6) 03/07/23 11:05 Urine Color Yellow (Yellow) 03/07/23 13:20 Urine Appearance Sl hazy (CLEAR) A 03/07/23 13:20 Urine pH 8 (5-7) H 03/07/23 13:20 Ur Specific [place] 1.010 (1.005-1.030) 03/07/23 13:20 Urine Protein Neg (Negative) 03/07/23 13:20 Urine Glucose (UA) Norm (Normal) 03/07/23 13:20 Urine Ketones 2+ (Negative) H 03/07/23 13:20 Urine Blood Neg (Negative) 03/07/23 13:20 Urine Nitrate Negative (Negative) 03/07/23 13:20 Urine Bilirubin Neg (Negative) 03/07/23 13:20 Prot Sulfosalicylic Acd Negative (Negative) 03/07/23 13:20 Urine Urobilinogen Norm mg/dL (Negative) 03/07/23 13:20 Ur Leukocyte Esterase Negative (Negative) 03/07/23 13:20 Urine RBC None /hpf (0-2) 03/07/23 13:20 Urine WBC None /hpf (0-5) 03/07/23 13:20 Ur Squamous Epith Cells Rare /hpf (0-5) 03/07/23 13:20 Amorphous Sediment 1+ /hpf 03/07/23 13:20 Urine Bacteria None /hpf (NONE) 03/07/23 13:20 Urine Opiates Screen Negative ng/mL (Negative) 03/07/23 13:20 Ur Barbiturates Screen Negative ng/mL (Negative) 03/07/23 13:20 Ur Phencyclidine Scrn Negative ng/mL (Negative) 03/07/23 13:20 Ur Amphetamines Screen Negative ng/mL (Negative) 03/07/23 13:20 U Benzodiazepines Scrn Positive ng/mL (Negative) H 03/07/23 13:20 Urine Cocaine Screen Negative ng/mL (Negative) 03/07/23 13:20 U Marijuana (THC) Screen Negative ng/mL (Negative) 03/07/23 13:20 All radiology interpretation(s) finalized by discharge Discharge Plan Discharge Patient Disposition: Home Clinical Impression: Acute on chronic respiratory failure with hypoxia and hypercapnia, Acute exacerbation of chronic obstructive airways disease Condition: Stable Prescriptions: No Action levalbuterol HCl 0.63 mg/3 mL solution for nebulization 0.63 mg inhalation TID Qty: 270 6RF ipratropium-albuterol 0.5 mg-3 mg(2.5 mg base)/3 mL Solution For Nebulization 3 ml INHALATION Q8H PRN (Reason: Shortness Of Breath) budesonide-formoterol [Symbicort] 160-4.5 mcg/actuation Hfa Aerosol Inhaler 2 puff INHALATION BID Spiriva Respimat 2.5 mcg/actuation mist 2 inh inhalation DAILY Qty: 4 5RF [place] See Rx Instructions .ROUTE .COMPLEX Rx Instructions: uses daily on legs epinephrine [EpiPen 2-Deondre] 0.3 mg/0.3 mL Auto-Injector See Rx Instructions .ROUTE .COMPLEX Rx Instructions: as directed montelukast [Singulair] 10 mg tablet 10 mg PO QAM levalbuterol tartrate [Xopenex HFA] 45 mcg/actuation HFA aerosol inhaler 1 puff inhalation Q6H PRN (Reason: unknown) pantoprazole 40 mg Tablet,Delayed Release (Dr/Ec) 40 mg PO DAILY 30 Days Qty: 30 0RF prednisone 10 mg tablets,dose pack See Taper PO DAILY Qty: 48 0RF Taper: predniSONE 60-10 60 mg Daily for 2 Days and 0 Hour 50 mg Daily for 2 Days and 0 Hour 40 mg Daily for 2 Days and 0 Hour 30 mg Daily for 2 Days and 0 Hour 20 mg Daily for 2 Days and 0 Hour 10 mg Daily for 2 Days and 0 Hour Rx Instructions: orally; prednisone 5 mg tablet 5 mg PO DAILY Qty: 30 0RF Rx Instructions: take after you are done with taper prednisone paroxetine HCl [Paxil] 10 mg tablet 10 mg PO DAILY 30 Days Qty: 30 0RF alprazolam [Xanax] 0.5 mg tablet 0.5 mg PO BID PRN (Reason: anxiety) 7 Days Qty: 14 0RF mupirocin 2 % ointment 1 applic topical DAILY Qty: 22 0RF Discharge Orders: Discharge ED (Routine); Ordered 03/07/23 Ordered By: Juan Mtz Referrals: Nurys Brooks, [Primary Care Provider] - Discharge Diet: Advance as tolerated Discharge Activity: Resume usual activity Patient Instructions: Opioid Safety, Pain Management Activity Restrictions/Additional Instructions: You are seen today for exacerbation of your COPD. You expressed wishes that you did not wish to be hospitalized and did not wish for us to use aggressive treatments. We contacted your doctor as well as the hospice company. Since you expressed your wish to not pursue care for this and wanted comfort care we are discharging you home hospice is aware and will meet you at home. Continue supportive and comfort cares as per hospice recommendations. Coding Level of Care Code ED Spar Finisher for Juan M Vegas
[2023-03-07] MEDS: ipratropium-albuterol 3 mL Neb INHALATION (10:48)
[2023-03-07 11:01] LABS: ABG PH Result 7.27 (7.35-7.45); Alveolar-Arterial Oxygen Gradi 5.5 mmHg (5-10); Arterial Blood Gas Hematocrit 41.3 % (37-47); Base Excess ABG 17.1 mmol/L (-2.0-2.0); Blood Gas Allen Test Pos; Blood Gas Operator Identificat CAK; Blood Gas Sample Site Brachial, left; Blood Gas Sample Type Arterial; Carboxyhemoglobin 2.8 %THgb (0.4-20.1); HCO3 ABG 49.3 mmol/L (22-26); Ionized Calcium Level - ABG 1.2 mmol/L (1.1-1.4); Methemoglobin 0.6 % (0.4-1.5); Oxygen Device NC; Oxygen Saturation ABG 91.1; PO2 ABG 59.2 mmHg (80.0-100.0); Potassium Level - ABG 4.6 mmol/L (3.5-5.0); Total Hemoglobin 13.5 g/dL (12-16)
[2023-03-07] MEDS: dexamethasone 10 mg/mL INJ IM (11:03)
--- NOTE | 2023-03-07 11:10 | ECG_ITS ---
[facility] Test Date: 2023-03-07 Pat Name: Rebekah Gabriel Department: Room: Gender: Female Dynamic Balancer: : 1975 Requested By: Juan Jay Order Number: [id number] Chandana MD: Jeffery Nguyen M.D. Measurements Intervals [place] Rate: 84 P: 81 GA: 129 QRS: 89 QRSD: 76 T: 73 QT: 365 QTc: 434 Interpretive Statements SINUS RHYTHM WITH MARKED SINUS ARRHYTHMIA POSSIBLE RIGHT VENTRICULAR CONDUCTION DELAY [RSR (QR) IN V1/V2] Compared to ECG 02/18/2023 11:58:41 Sinus tachycardia no longer present Atrial abnormality no longer present Myocardial infarct finding no longer present Electronically Signed On 03-07-2023 11:58:00 CDT by Jeffery Nguyen M.D. [id number]
[2023-03-07 11:13] LABS: Basophils % 0.2 %; Eosinophils % 0.1 %; Hematocrit 42.4 % (36-47); Lymphocytes # 0.8 10^3/uL (0.8-4.8); Lymphocytes % 5.5 %; Mean Corpuscular Hemoglobin 29.9 pg (27-33); Mean Corpuscular Volume 102.9 fl (85-98); Mean Platelet Volume 9.3 fL (7.4-10.4); Monocytes # 0.8 10^3/uL (0.2-0.9); Monocytes % 5.3 %; Neutrophils # 13.25 10^3/uL (1.8-7.7); Neutrophils % 88.6 %; Nucleated Red Blood Cells % 0 %; Platelet Count 189 10^3/cmm (157-399); Red Blood Count 4.12 10^6/uL (3.85-5.65); Red Cell Distribution Width 12.9 % (12.1-15.1); White Blood Count 14.97 10^3/uL (3.29-11.43)
[2023-03-07 11:31] LABS: Alanine Aminotransferase 19 U/L (0-33); Albumin Level 3.8 g/dL (3.5-5.2); Alkaline Phosphatase 69 U/L (35-105); Anion Gap 7.8 (5-19); Aspartate Amino Transferase 13 U/L (0-32); Blood Urea Nitrogen 12 mg/dL (6-20); Chloride 90 mmol/L (98-107); Globulin 2.3 g/dL (1.3-4.6); Glomerular Filtration Rate 379.1 mL/min (90-130); Glucose 120 mg/dL (65-115); Osmolality Calculated 287 mOsm/kg (285-295); Potassium 4.8 mmol/L (3.5-5.1); Sodium 138 mmol/L (136-145); Total Bilirubin 0.4 mg/dL (0.15-1.2); Total Protein 6.1 g/dL (6.6-8.7)
[2023-03-07 11:33] LABS: Carbon Dioxide 45 mmol/L (22-29)
--- NOTE | 2023-03-07 13:00 | PC.NURSE ---
respiratory reported to RN that PT is refusing BIPAP or oxygen by NC. RN to room to assess PT wishes PT stated she would not wear NC or BIPAP and she wants to go home to . notified.
[2023-03-07 13:36] LABS: Amphetamines Screen Urine Negative (Negative); Barbiturates Screen Urine Negative (Negative); Benzodiazepines Screen Urine Positive (Negative); Cocaine Screen Urine Negative (Negative); Opiate Screen Urine Negative (Negative); PCP Screen Urine Negative (Negative); THC Screen Urine Negative (Negative)
[2023-03-07 13:44] LABS: Urine Appearance SL Hazy (CLEAR); Urine Color Yellow (Yellow); pH Urine 8 (5-7)
[2023-03-07 13:45] LABS: Add Urine Microscopic? YES; Amorphous Sediment Urine 1+ /hpf; Bilirubin Urine Neg (Negative); Blood Urine Neg (Negative); Glucose Urine UA Norm (Normal); Ketones Urine 2+ (Negative); Leukocyte Esterase Urine Negative (Negative); Nitrate Urine Negative (Negative); Protein Urine Neg (Negative); Squamous Epithelial Cell Urine RARE /hpf (0-5); Sulfosalicylic Acid Urine Negative (Negative); Urobilinogen Urine Norm (Negative)
[2023-03-07] MEDS: LORazepam 2 mg Tablet PO (15:06)
== END 2023-03-07 16:17 | disposition home or self-care (01) ==
PROVIDERS: Emergency Provider Family Medicine; PCP Family Medicine
DX: J44.1 Chronic obstructive pulmonary disease with (acute) exacerbation (principal); J96.22 Acute and chronic respiratory failure with hypercapnia; J96.21 Acute and chronic respiratory failure with hypoxia; Z72.0 Tobacco use
CPT/HCPCS: 36415; 36600; 71045; 80051; 80053; 80306; 81001; 82330; 82805; 85025; 93005; 94640; 94660; 96372; 99285; J1100